=== PATIENT | male | born 1965 | race African-American/Black ===

== ENCOUNTER 2017-02-14 18:54 | Emergency (ER) | payer MEDICARE, MEDICAID ==
[~2017-02-14] VITALS: Ht 177.8 cm; Wt 113.0 kg
[~2017-02-14 18:54] MED LIST: ACYC-1 PO; ALBU1AER INH; ATOR40TA49 PO; CITA10TA4 PO; EMTR1TAB2 PO; MULTTAB5 PO
[2017-02-14 18:56] VITALS: BP 152/84; PULSE 105; RESP 16; TEMP 99.2; O2SAT 96
--- NOTE | 2017-02-14 20:15 | PD ---
HPI Chief Complaint: Cold / Flu Symptoms Time Seen by Provider: 20:08 Travel History International Travel<30 days: No Contact w/Intl Traveler<30days: No Traveled to known affect area: No History of Present Illness HPI 51-year-old male presents for evaluation of cough and congestion and sinus pressure. Symptoms started 3 days ago. The cough is productive with green sputum production. He has been using ipci-mje-ughtqci medications but symptoms persisted which prompted evaluation. No fevers or chills, rash or recent travel , nausea or vomiting. No sick contacts. No other complaints. PFSH Past Medical History Hx Anticoagulant Therapy: No Arthritis: No Asthma: No Autoimmune Disease: Yes (PATIENT HIV POSITIVE SINCE 1995) Blood Disorders: Yes (HIV +, LAST T CELL 600-700 03/2013) Anxiety: No Depression: Yes Heart Rhythm Problems: No Cancer: No Cardiac Catheterization: No Cardiovascular Problems: No High Cholesterol: Yes Chemotherapy: No Chest Pain: Yes Congestive Heart Failure: No COPD: No Cerebrovascular Accident: No Diabetes: No Diminished Hearing: No Endocrine: No Gastrointestinal Disorders: No GERD: No Glaucoma: No Genitourinary: No Headaches: Yes Hepatitis: Yes (B) Hiatal Hernia: No Hypertension: No Immune Disorder: Yes (HIV+ SINCE 1995) Kidney Stones: No Musculoskeletal: No Neurologic: No Psychiatric: Yes (DEPRESSION ) Reproductive: No Respiratory: No Migraines: Yes Myocardial Infarction: No Radiation Therapy: No Renal Failure: No Seizures: No Sleep Apnea: Yes Thyroid Disease: No Ulcer: No PNEUMOCCOCAL Vaccine (Year): 4 YRS AGO Past Surgical History Abdominal Surgery: Yes (APPENDIX) AICD: No Appendectomy: Yes Arteriovenous Shunt: No Body Medical Devices: PATIENT HIV POSITIVE SINCE 1995, HEP B 2005 Cardiac Surgery: No Coronary Artery Bypass Graft: No Ear Surgery: No Endocrine Surgery: No Eye Surgery: No Genitourinary Surgery: No Gynecologic Surgery: No Insulin Pump: No Joint Replacement: No Oral Surgery: No Pacemaker: No Thoracic Surgery: No Other Surgery: Yes (SURG ON LEFT SIDE OF HEAD; TUMOUR REMOVED) Social History Alcohol Use: Yes (drank yesterday) Tobacco Use: Yes (1 PPD) Substance Use: No (Quit Sep 2015) Allergies-Medications (Allergen,Severity, Reaction): Coded Allergies: Codeine (Verified Allergy, Intermediate, HIVES, RASH AND ITCHING, 02/14/17) Reported Meds & Prescriptions Reported Meds & Active Scripts Active Proair Hfa (Albuterol Sulfate) 8.5 Gm Aero 2 Puff INH Q4H PRN * SHAKE WELL BEFORE USE * Reported Acyclovir 800 Mg Tab 800 Mg PO DAILY Lipitor (Atorvastatin Calcium) 40 Mg Tab 40 Mg PO HS Odefsey (Bwhtjfnfgmybs-Pgdzeideccn-Xqsphjuts Alafenam) 200-200-25 Mg Tab 1 Tab PO DAILY Citalopram Hydrobromide 10 Mg Tab 10 Mg PO DAILY Multilex-T&M (Multiple Vitamins W/ Minerals) Tab 30 Mg PO DAILY Review of Systems Except as stated in HPI: all other systems reviewed are Neg Physical Exam Narrative GENERAL: Well-developed well-nourished male in no acute distress SKIN: Warm and dry. HEAD: Atraumatic. Normocephalic. EYES: Pupils equal and round. No scleral icterus. No injection or drainage. ENT: No nasal bleeding or discharge. Mucous membranes pink and moist. NECK: Trachea midline. No JVD. CARDIOVASCULAR: Regular rate and rhythm. No murmur appreciated. RESPIRATORY: No accessory muscle use. Clear to auscultation. Breath sounds equal bilaterally. GASTROINTESTINAL: Abdomen soft, non-tender, nondistended. Hepatic and splenic margins not palpable. Data Data Last Documented VS Vital Signs Date Time Temp Pulse Resp B/P Pulse Ox O2 Delivery O2 Flow Rate FiO2 02/14/17 18:56 99.2 105 16 152/84 96 Room Air Orders Chest, Pa & Lat (02/14/17 ) Influenzae A/B Antigen (02/14/17 20:10) MDM Medical Decision Making Medical Screen Exam Complete: Yes Emergency Medical Condition: Yes Medical Record Reviewed: Yes Differential Diagnosis Sinusitis, bronchitis, pneumonia, influenza Narrative Course 51-year-old male with cough and cold symptoms for the past few days. Chest x- ray is negative for pneumonia. Influenza antigen is negative. He does have evidence of sinusitis. He will be discharged on Augmentin. Diagnosis Primary Impression: Sinusitis Qualified Code: J01.90 - Acute sinusitis, recurrence not specified, unspecified location Additional Instructions: Medication as prescribed. Stay well hydrated well-nourished. Use over-the- counter nasal decongestants and cough suppressants for symptom relief. Return for any emergent medical conditions. Med/Other Pt SpecificInfo: Prescription(s) given Scripts Amoxicillin-Clavulanate (Augmentin)875-125 mg [id number] Mg PO BID 10 Days Ref 0 not for use in CrCl <30 ml/min. Prov:Terrance Crews MD 02/14/17 Disposition: 01 DISCHARGE HOME Condition: Stable Santos Cabrera Feb 14, 2017 20:14
[2017-02-14] MEDS ORDERED: EMTR1TAB2 PO (20:32)
[2017-02-14] MEDS ORDERED: ACYC800T PO (20:32)
[2017-02-14] MEDS ORDERED: LIPI40TA PO (20:32)
--- NOTE | 2017-02-14 20:48 | RADRPT ---
EXAM DATE/TIME: 02/14/2017 20:25 [facility] COMPARISON: CHEST PA & LAT, May 16, 2016, 20:38. [facility] INDICATIONS : Cough and congestion for the past few days. MEDICAL HISTORY : HIV. Hepatitis B. SURGICAL HISTORY : Appendectomy. ENCOUNTER: Initial ACUITY: 3 days PAIN SCORE: 3/10 LOCATION: Bilateral chest FINDINGS: PA and lateral views of the chest demonstrate the lungs to be symmetrically aerated without evidence of mass, infiltrate or effusion. The cardiomediastinal contours are unremarkable. Osseous structure s are intact. CONCLUSION: No acute disease. No significant change has occurred. Peter Robbins MD on February 14, 2017 at 20:46 Board Certified Radiologist. This report was verified electronically.
[2017-02-14] MEDS ORDERED: AUGM875T PO (21:37)
== END 2017-02-14 22:07 | disposition home or self-care (01) ==
LOC: NEPK 18:54
DX: J01.90 Acute sinusitis, unspecified (principal); B20 Human immunodeficiency virus [HIV] disease; E78.00 Pure hypercholesterolemia, unspecified; F32.9 Major depressive disorder, single episode, unspecified; B19.10 Unspecified viral hepatitis B without hepatic coma; F17.210 Nicotine dependence, cigarettes, uncomplicated
CPT/HCPCS: 71020; 87804; 99283

== ENCOUNTER 2017-04-11 19:35 | Emergency (ER) | payer MEDICARE, MEDICAID ==
[~2017-04-11] VITALS: Ht 177.8 cm; Wt 117.0 kg
[~2017-04-11 19:35] MED LIST changes: -ACYC-1 PO; +ACYC800T PO; -ALBU1AER INH; -ATOR40TA49 PO; +AUGM875T PO; +LIPI40TA PO
[2017-04-11 19:36] VITALS: BP 140/83; PULSE 88; RESP 16; TEMP 99; O2SAT 95
--- NOTE | 2017-04-11 21:35 | PD ---
HPI Chief Complaint: Abdominal Pain Time Seen by Provider: 21:28 Travel History International Travel<30 days: No Contact w/Intl Traveler<30days: No Traveled to known affect area: No History of Present Illness HPI 52-year-old male with a history of hepatitis B, HIV, hyperlipidemia, depression presents to the emergency department for evaluation of abdominal distention. The patient states that his abdomen has felt swollen today. States that he has had this feeling in the past as well. States that he has constipation, he has small hard stools. States that he used milk of magnesia and an enema today and has had multiple loose watery stools since then and states that this has improved his symptoms but not completely resolved his symptoms. He states he is concerned about his liver because of his hepatitis B and was concerned he had liver failure. He denies any nausea, vomiting, diarrhea, chest pain, shortness of breath, swelling of the extremities. He states that he has told his PCP Dr. Vivas about these symptoms previously and was told that this is a side effect of the medication that he takes for his HIV. No other complaints. PFSH Past Medical History Hx Anticoagulant Therapy: No Arthritis: No Asthma: No Autoimmune Disease: Yes (PATIENT HIV POSITIVE SINCE 1995) Blood Disorders: Yes (HIV +) Anxiety: No Depression: Yes Heart Rhythm Problems: No Cancer: No Cardiac Catheterization: No Cardiovascular Problems: No High Cholesterol: Yes Chemotherapy: No Chest Pain: Yes Congestive Heart Failure: No COPD: No Cerebrovascular Accident: No Diabetes: Yes Patient Takes Glucophage: Yes (metformin ) Diminished Hearing: No Endocrine: No Gastrointestinal Disorders: No GERD: No Glaucoma: No Genitourinary: No Headaches: Yes Hepatitis: Yes (B) Hiatal Hernia: No Hypertension: No Immune Disorder: Yes (HIV+ SINCE 1995) Kidney Stones: No Musculoskeletal: No Neurologic: No Psychiatric: Yes (DEPRESSION ) Reproductive: No Respiratory: No Migraines: Yes Myocardial Infarction: No Radiation Therapy: No Renal Failure: No Seizures: No Sleep Apnea: Yes Thyroid Disease: No Ulcer: No PNEUMOCCOCAL Vaccine (Year): 4 YRS AGO Past Surgical History Abdominal Surgery: Yes (APPENDIX) AICD: No Appendectomy: Yes Arteriovenous Shunt: No Body Medical Devices: PATIENT HIV POSITIVE SINCE 1995, HEP B 2005 Cardiac Surgery: No Coronary Artery Bypass Graft: No Ear Surgery: No Endocrine Surgery: No Eye Surgery: No Genitourinary Surgery: No Gynecologic Surgery: No Insulin Pump: No Joint Replacement: No Oral Surgery: No Pacemaker: No Thoracic Surgery: No Other Surgery: Yes (SURG ON LEFT SIDE OF HEAD; TUMOUR REMOVED) Family History Family Myocardial Infarction: Yes (aunt, grandmother) Social History Alcohol Use: No (quit 8 months ago) Tobacco Use: Yes (1 PPD) Substance Use: No (Quit Sep 2015) Allergies-Medications (Allergen,Severity, Reaction): Coded Allergies: Codeine (Verified Allergy, Intermediate, HIVES, RASH AND ITCHING, 02/14/17) Reported Meds & Prescriptions Reported Meds & Active Scripts Active Augmentin (Amoxicillin-Clavulanate) 875-125 mg Tab 875 Mg PO BID 10 Days not for use in CrCl <30 ml/min. Reported Acyclovir 800 Mg Tab 800 Mg PO DAILY Lipitor (Atorvastatin Calcium) 40 Mg Tab 40 Mg PO HS Odefsey (Lkdgvwiaahpvg-Rgaujqxgewh-Xyabemqqg Alafenam) 200-200-25 Mg Tab 1 Tab PO DAILY Citalopram Hydrobromide 10 Mg Tab 10 Mg PO DAILY Multilex-T&M (Multiple Vitamins W/ Minerals) Tab 30 Mg PO DAILY Review of Systems Except as stated in HPI: all other systems reviewed are Neg Physical Exam Narrative GENERAL: Well-nourished and well-developed pleasant male patient in no acute distress who is nontoxic appearing. SKIN: Warm and dry. HEAD: Normocephalic and atraumatic. EYES: No injection, drainage, or hyphema noted. PERRLA. EOMI. ENT: No nasal drainage noted. Oropharynx is clear. NECK: Supple and the trachea is midline. CARDIOVASCULAR: Regular rate and rhythm. RESPIRATORY: Breath sounds are equal bilaterally with no accessory muscle use, wheezing, rhonchi, or crackles. GASTROINTESTINAL: Abdomen is slightly distended however soft and nontender. No rebound tenderness or guarding. MUSCULOSKELETAL: No obvious deformities, swelling, cyanosis, or ecchymosis is present throughout the upper and lower extremities. Patient has full range of motion without any signs of neurovascular compromise. NEUROLOGICAL: Awake, alert, and oriented. Normal speech and gait. Cranial nerves are grossly intact. Data Data Last Documented VS Vital Signs Date Time Temp Pulse Resp B/P Pulse Ox O2 Delivery O2 Flow Rate FiO2 04/11/17 19:36 99.0 88 16 140/83 95 Room Air Orders Complete Blood Count With Diff (04/11/17 21:26) Comprehensive Metabolic Panel (04/11/17 21:26) Labs Laboratory Tests Test 04/11/17 21:40 White Blood Count 6.6 TH/MM3 Red Blood Count 4.77 MIL/MM3 Hemoglobin 15.4 GM/DL Hematocrit 44.3 % Mean Corpuscular Volume 92.9 FL Mean Corpuscular Hemoglobin 32.2 PG Mean Corpuscular Hemoglobin 34.6 % Concent Red Cell Distribution Width 13.9 % Platelet Count 202 TH/MM3 Mean Platelet Volume 7.7 FL Neutrophils (%) (Auto) 46.0 % Lymphocytes (%) (Auto) 41.8 % Monocytes (%) (Auto) 10.5 % Eosinophils (%) (Auto) 1.4 % Basophils (%) (Auto) 0.3 % Neutrophils # (Auto) 3.0 TH/MM3 Lymphocytes # (Auto) 2.8 TH/MM3 Monocytes # (Auto) 0.7 TH/MM3 Eosinophils # (Auto) 0.1 TH/MM3 Basophils # (Auto) 0.0 TH/MM3 CBC Comment DIFF FINAL Differential Comment Sodium Level 142 MEQ/L Potassium Level 3.7 MEQ/L Chloride Level 107 MEQ/L Carbon Dioxide Level 26.2 MEQ/L Anion Gap 9 MEQ/L Blood Urea Nitrogen 14 MG/DL Creatinine 1.47 MG/DL Estimat Glomerular Filtration 61 ML/MIN Rate Random Glucose 107 MG/DL Calcium Level 8.8 MG/DL Total Bilirubin 0.3 MG/DL Aspartate Amino Transf 31 U/L (AST/SGOT) Alanine Aminotransferase 64 U/L (ALT/SGPT) Alkaline Phosphatase 130 U/L Total Protein 7.4 GM/DL Albumin 3.7 GM/DL [facility] Medical Decision Making Medical Screen Exam Complete: Yes Emergency Medical Condition: Yes Differential Diagnosis Constipation versus abdominal distention versus indigestion versus GERD versus ascites Narrative Course 52-year-old male with a history of HIV and hepatitis B presents to the emergency department for evaluation of abdominal distention. Patient is afebrile, vital signs are stable. Abdominal examination is benign therefore no emergent imaging is necessary. Patient states he's had this before. He is concerned it caused by his liver. I suspect is more likely caused by either indigestion or constipation. I reviewed the EMR which shows he was seen here less than a year ago for the same complaint, labs and CT of the abdomen were unremarkable. We'll do lab work and if this is unremarkable patient will be discharged to home. Advised follow-up with a employment program representative. CBC is unremarkable. CMP shows renal insufficiency consistent with previous lab values. Alkaline phosphatase is elevated also consistent with previous lab values. No acute abnormalities. Discussed all results with the patient. Advised outpatient follow-up with a employment program representative. I discussed the case with my attending physician Dr. Orta who is aware of the patients history, physical examination findings, and treatment plan. Diagnosis Primary Impression: Abdominal distension Referrals: [employer] Patient Instructions: General Instructions Additional Instructions: Follow-up with your Primary Care Physician or a employment program representative. Return to the ED for any acute worsening of symptoms. Med/Other Pt SpecificInfo: No Change to Meds Disposition: 01 DISCHARGE HOME Condition: Stable Blanka Bonner Apr 11, 2017 21:35
[2017-04-11 22:20] LABS: BASOPHIL % 0.3 % (0.0-2.0); EOSINOPHIL # 0.1 TH/MM3 (0-0.4); EOSINOPHIL % 1.4 % (0.0-4.0); HEMATOCRIT 44.3 % (39.0-51.0); HEMO FLAGS DIFF FINAL; LYMPH % 41.8 % (9.0-44.0); LYMPHOCYTE # 2.8 TH/MM3 (1.0-4.8); MEAN CELL VOLUME 92.9 FL (80.0-100.0); MEAN CORPUSCULAR HEMOGLOBIN 32.2 PG (27.0-34.0); MEAN CORPUSCULAR HGB CONC 34.6 % (32.0-36.0); MONO % 10.5 % (0.0-8.0); PLATELET COUNT 202 TH/MM3 (150-450); RED BLOOD COUNT 4.77 MIL/MM3 (4.50-5.90); RED CELL DISTRIBUTION WIDTH 13.9 % (11.6-17.2); WHITE BLOOD COUNT 6.6 TH/MM3 (4.0-11.0)
[2017-04-11 22:42] LABS: ANION GAP 9 MEQ/L (5-15); BICARBONATE 26.2 MEQ/L (21.0-32.0); BLOOD UREA NITROGEN 14 MG/DL (7-18); CHLORIDE 107 MEQ/L (98-107); GLOMERULAR FILTRATION RATE 61 ML/MIN (>89); POTASSIUM 3.7 MEQ/L (3.5-5.1); SODIUM (NA) 142 MEQ/L (136-145)
[2017-04-11 22:44] LABS: ALT (GPT) 64 U/L (12-78)
[2017-04-11 22:52] LABS: ALKALINE PHOSPHATASE 130 U/L (45-117); AST (GOT) 31 U/L (15-37); TOTAL BILIRUBIN ADULT 0.3 MG/DL (0.2-1.0)
== END 2017-04-11 23:36 | disposition home or self-care (01) ==
LOC: NEPE 19:35
DX: R14.0 Abdominal distension (gaseous) (principal); E78.00 Pure hypercholesterolemia, unspecified; E11.9 Type 2 diabetes mellitus without complications; G47.30 Sleep apnea, unspecified; B19.10 Unspecified viral hepatitis B without hepatic coma; Z21 Asymptomatic human immunodeficiency virus [HIV] infection status
CPT/HCPCS: 80053; 85025; 99283

== ENCOUNTER 2017-05-25 18:09 | Emergency (ER) | payer MEDICARE, MEDICAID ==
[~2017-05-25] VITALS: Ht 177.8 cm; Wt 117.0 kg
[~2017-05-25 18:09] MED LIST changes: -AUGM875T PO; -CITA10TA4 PO; -MULTTAB5 PO
[2017-05-25 18:12] VITALS: BP 126/75; PULSE 86; RESP 15; TEMP 98.2; O2SAT 98
--- NOTE | 2017-05-25 18:23 | PD ---
Physical Exam Date Seen by Provider: May 25, 2017 Time Seen by Provider: 18:21 Narrative 52 yr old male here with c/o constant right sided chest pain. He says it feels like gas. Denies any nausea, vomiting, diaphoresis of sob. He tells me it is likely related to tacos he ate last night and thinks it is gas. He admits to having HIV, Hep B. He tells me he is not able to stay, but hoping everything is ok. He is awaiting bed placement. Data Data Last Documented VS Vital Signs Date Time Temp Pulse Resp B/P Pulse Ox O2 Delivery O2 Flow Rate FiO2 05/25/17 18:12 98.2 86 15 126/75 98 MDM Medical Record Reviewed: Yes Supervised Visit with REMEDIOS: No Condition: Stable Samara Bridges May 25, 2017 18:23
[2017-05-25] MEDS ORDERED: SODIUM CHLOR 0.9% 1000 ML INJ 1,000 ML IV SCH (20:05)
[2017-05-25] MEDS ORDERED: PANTOPRAZOLE SODIUM 40 MG VIAL IVP ONE (20:15)
[2017-05-25] MEDS ORDERED: FAMOTIDINE 20 MG/2 ML VIAL IV PUSH ONE (20:15)
[2017-05-25] MEDS ORDERED: DICYCLOMINE HCL 10 MG CAP PO ONE (20:15)
[2017-05-25 20:41] VITALS: O2SAT 97
[2017-05-25 20:42] VITALS: BP 117/72; PULSE 71; RESP 20; O2SAT 97
--- NOTE | 2017-05-25 20:43 | RADRPT ---
EXAM DATE/TIME: 05/25/2017 20:04 [facility] COMPARISON: CHEST PA & LAT, February 14, 2017, 20:25. INDICATIONS : Chest pain. MEDICAL HISTORY : HIV. Hepatitis B. SURGICAL HISTORY : Appendectomy. ENCOUNTER: Initial ACUITY: 1 day PAIN SCORE: 6/10 LOCATION: Bilateral chest FINDINGS: Cardiomegaly. Clear lungs. Osseous structures are intact. CONCLUSION: No acute disease. Gilbert Brown MD on May 25, 2017 at 20:41 Board Certified Radiologist. This report was verified electronically.
--- NOTE | 2017-05-25 20:56 | PD ---
HPI Chief Complaint: Chest Pain Time Seen by Provider: 20:51 Travel History International Travel<30 days: No Contact w/Intl Traveler<30days: No Traveled to known affect area: No History of Present Illness HPI 52-year-old male that presents to the ED for evaluation of right-sided chest pain. Per patient she's had this since this morning. Per patient he releases gas and he feels very similar to previous episodes which were diagnosed as the same. Per patient he does have a history of HIV and hepatitis B. Per patient she's been treated for his HIV and his viral load is undetectable and his CD4 count is in the 800s. He denies any other complaint. Per patient he does having nausea or vomiting. Per patient the pain stays mainly on the right side of the chest. He denies any left-sided chest pain. No shortness of breath. No cough. No runny nose. No abdominal pain. No trouble eating or drinking. Per patient he feels like there is a gas but doesn't want to come out. Per patient the discomfort is 8 out of 10. He has an allergy to codeine. Has no allergies to medication. No other medical issues at this time. PFSH Past Medical History Hx Anticoagulant Therapy: No Arthritis: No Asthma: No Autoimmune Disease: Yes (PATIENT HIV POSITIVE SINCE 1995) Blood Disorders: Yes (HIV +) Anxiety: No Depression: Yes Heart Rhythm Problems: No Cancer: No Cardiac Catheterization: No Cardiovascular Problems: No High Cholesterol: Yes Chemotherapy: No Chest Pain: Yes Congestive Heart Failure: No COPD: No Cerebrovascular Accident: No Diabetes: Yes Patient Takes Glucophage: Yes Diminished Hearing: No Endocrine: No Gastrointestinal Disorders: No GERD: No Glaucoma: No Genitourinary: No Headaches: Yes Hepatitis: Yes (B) Hiatal Hernia: No Hypertension: No Immune Disorder: Yes (HIV+ SINCE 1995) Kidney Stones: No Musculoskeletal: No Neurologic: No Psychiatric: Yes (DEPRESSION ) Reproductive: No Respiratory: No Migraines: Yes Myocardial Infarction: No Radiation Therapy: No Renal Failure: No Seizures: No Sleep Apnea: Yes Thyroid Disease: No Ulcer: No Tetanus Vaccination: > 5 Years Influenza Vaccination: Yes PNEUMOCCOCAL Vaccine (Year): 4 YRS AGO Past Surgical History Abdominal Surgery: Yes (APPENDIX) AICD: No Appendectomy: Yes Arteriovenous Shunt: No Body Medical Devices: PATIENT HIV POSITIVE SINCE 1995, HEP B 2005 Cardiac Surgery: No Coronary Artery Bypass Graft: No Ear Surgery: No Endocrine Surgery: No Eye Surgery: No Genitourinary Surgery: No Gynecologic Surgery: No Insulin Pump: No Joint Replacement: No Oral Surgery: No Pacemaker: No Thoracic Surgery: No Other Surgery: Yes (SURG ON LEFT SIDE OF HEAD; TUMOUR REMOVED) Family History Family Myocardial Infarction: Yes (aunt, grandmother) Social History Alcohol Use: No (quit 8 months ago) Tobacco Use: Yes (1 PPD) Substance Use: No (Quit Sep 2015) Allergies-Medications (Allergen,Severity, Reaction): Coded Allergies: Codeine (Verified Allergy, Intermediate, HIVES, RASH AND ITCHING, 02/14/17) Reported Meds & Prescriptions Reported Meds & Active Scripts Active Reported Hydrochlorothiazide 12.5 Mg Cap 5 Mg PO DAILY Metformin (Metformin HCl) 500 Mg Tab 500 Mg PO DAILY With a meal Multiple Vitamin 1 Tab 1 Tab PO DAILY Baraclude (Entecavir) 1 Mg Tab 25 Mg PO DAILY Take on an empty stomach. Acyclovir 800 Mg Tab 800 Mg PO DAILY Lipitor (Atorvastatin Calcium) 40 Mg Tab 40 Mg PO HS Odefsey (Qzgekdqagtikf-Ebwfmlxszlu-Jtsltdthk Alafenam) 200-200-25 Mg Tab 1 Tab PO DAILY Review of Systems Except as stated in HPI: all other systems reviewed are Neg Physical Exam Narrative GENERAL: SKIN: Warm and dry. HEAD: Atraumatic. Normocephalic. EYES: Pupils equal and round 4 mm reactive to light and accommodation. No scleral icterus. No injection or drainage. ENT: No nasal bleeding or discharge. Mucous membranes pink and moist. Tongue is midline. No uvula deviation. NECK: Trachea midline. No JVD. CARDIOVASCULAR: Regular rate and rhythm. No murmurs, S3, S4. RESPIRATORY: No accessory muscle use. Clear to auscultation. Breath sounds equal bilaterally. GASTROINTESTINAL: Abdomen soft, non-tender, nondistended. Hepatic and splenic margins not palpable. MUSCULOSKELETAL: Extremities without clubbing, cyanosis, or edema. No obvious deformities. Full range of motion of the upper and lower extremities bilaterally. 2+ pulses bilaterally. Chest pain is not reproducible with touch. NEUROLOGICAL: Awake and alert. No obvious cranial nerve deficits. Motor grossly within normal limits. Five out of 5 muscle strength in the arms and legs. Normal speech. PSYCHIATRIC: Appropriate mood and affect; insight and judgment normal. Data Data Last Documented VS Vital Signs Date Time Temp Pulse Resp B/P Pulse Ox O2 Delivery O2 Flow Rate FiO2 05/25/17 20:42 71 20 117/72 97 Room Air 05/25/17 18:12 98.2 Orders Electrocardiogram (05/25/17 ) Electrocardiogram (05/25/17 20:05) Complete Blood Count With Diff (05/25/17 20:05) Comprehensive Metabolic Panel (05/25/17 20:05) Ckmb (Isoenzyme) Profile (05/25/17 20:05) Troponin I (05/25/17 20:05) Lipase (05/25/17 20:05) Magnesium (Mg) (05/25/17 20:05) Chest, Single Ap (05/25/17 20:05) Iv Access Insert/Monitor (05/25/17 20:05) Ecg Monitoring (05/25/17 20:05) Oximetry (05/25/17 20:05) Pantoprazole Inj (Protonix Inj) (05/25/17 20:15) Sodium Chlor 0.9% 1000 Ml Inj (Ns 1000 M (05/25/17 20:05) Famotidine Inj (Pepcid Inj) (05/25/17 20:15) Dicyclomine (Bentyl) (05/25/17 20:15) CKMB (05/25/17 21:26) CKMB% (05/25/17 21:26) Labs Laboratory Tests Test 05/25/17 05/25/17 21:26 22:06 Sodium Level 139 MEQ/L Potassium Level 4.2 MEQ/L Chloride Level 107 MEQ/L Carbon Dioxide Level 25.9 MEQ/L Anion Gap 6 MEQ/L Blood Urea Nitrogen 17 MG/DL Creatinine 1.61 MG/DL Estimat Glomerular Filtration 55 ML/MIN Rate Random Glucose 97 MG/DL Calcium Level 9.0 MG/DL Magnesium Level 1.9 MG/DL Total Bilirubin 0.3 MG/DL Aspartate Amino Transf 36 U/L (AST/SGOT) Alanine Aminotransferase 60 U/L (ALT/SGPT) Alkaline Phosphatase 115 U/L Total Creatine Kinase 208 U/L Creatine Kinase MB 0.9 NG/ML Troponin I LESS THAN 0.02 NG/ML Total Protein 6.9 GM/DL Albumin 3.4 GM/DL Lipase 124 U/L White Blood Count 7.6 TH/MM3 Red Blood Count 4.62 MIL/MM3 Hemoglobin 14.9 GM/DL Hematocrit 43.6 % Mean Corpuscular Volume 94.4 FL Mean Corpuscular Hemoglobin 32.4 PG Mean Corpuscular Hemoglobin 34.3 % Concent Red Cell Distribution Width 13.9 % Platelet Count 225 TH/MM3 Mean Platelet Volume 7.7 FL Neutrophils (%) (Auto) 46.9 % Lymphocytes (%) (Auto) 39.6 % Monocytes (%) (Auto) 10.9 % Eosinophils (%) (Auto) 1.9 % Basophils (%) (Auto) 0.7 % Neutrophils # (Auto) 3.5 TH/MM3 Lymphocytes # (Auto) 3.0 TH/MM3 Monocytes # (Auto) 0.8 TH/MM3 Eosinophils # (Auto) 0.1 TH/MM3 Basophils # (Auto) 0.1 TH/MM3 CBC Comment DIFF FINAL Differential Comment MDM Medical Decision Making Medical Screen Exam Complete: Yes Emergency Medical Condition: Yes Medical Record Reviewed: Yes Interpretation(s) CBC & BMP Diagram 05/25/17 21:26 05/25/17 22:06 troponin and CKMB negative EKG shows sinus rhythm with no sign of acute ischemia or arrhythmia. Chest x-ray negative for acute disease. LFTs and lipase within normal limits. Differential Diagnosis Chest pain versus a typical chest pain versus abdominal pain versus pancreatitis versus cholelithiasis versus cholecystitis versus pneumonia versus costochondritis Narrative Course 52-year-old male that presents to the ED for evaluation of right-sided chest pain. Patient was properly examined and was found to have signs and symptoms consistent with ACS. I believe that this is a typical chest pain. More likely abdominal. Patient does have a history of hep B. Patient still has a gallbladder. Recommends time labs and imaging to make sure patient does not have any other acute disease. Patient is in agreement with this plan. Patient was given medications IV. Labs and imaging showed sign of acute disease. Patient was reassured. From history and physical this appears to be a typical chest pain. Patient states that he's had this same chest pain before and he was related to gas and do believe that this is benign at this time. Case discussed with my attending Dr Toth who agrees with plan and discharge. Patient was told that if anything worsens she is to come back to the ED. Patient happy with care. Questions were answered that is my ability. Patient will be given a prescription for diclofenac sodium for the pain. Told to follow up with PCP. See ED if worsening symptoms. Diagnosis Primary Impression: Atypical chest pain Patient Instructions: General Instructions Additional Instructions: Take medication as prescribed. Follow with PCP. See ED worsening symptoms. Med/Other Pt SpecificInfo: Prescription(s) given Disposition: 01 DISCHARGE HOME Condition: Stable Charlie Linares May 25, 2017 20:56
[2017-05-25] MEDS ORDERED: MULTTAB67 PO (21:42)
[2017-05-25] MEDS ORDERED: HYDR12.57 PO (21:42)
[2017-05-25] MEDS ORDERED: BARA1TAB PO (21:42)
[2017-05-25] MEDS ORDERED: METF500T PO (21:42)
[2017-05-25 22:11] LABS: ALT (GPT) 60 U/L (12-78)
[2017-05-25 22:26] LABS: ALKALINE PHOSPHATASE 115 U/L (45-117); ANION GAP 6 MEQ/L (5-15); AST (GOT) 36 U/L (15-37); BICARBONATE 25.9 MEQ/L (21.0-32.0); BLOOD UREA NITROGEN 17 MG/DL (7-18); CHLORIDE 107 MEQ/L (98-107); CREATINE KINASE 208 U/L (39-308); GLOMERULAR FILTRATION RATE 55 ML/MIN (>89); MAGNESIUM 1.9 MG/DL (1.5-2.5); POTASSIUM 4.2 MEQ/L (3.5-5.1); SODIUM (NA) 139 MEQ/L (136-145); TOTAL BILIRUBIN ADULT 0.3 MG/DL (0.2-1.0)
[2017-05-25 22:32] LABS: AUTOMATED NEUTROPHIL # 3.5 TH/MM3 (1.8-7.7); BASOPHIL # 0.1 TH/MM3 (0-0.2); BASOPHIL % 0.7 % (0.0-2.0); EOSINOPHIL # 0.1 TH/MM3 (0-0.4); EOSINOPHIL % 1.9 % (0.0-4.0); HEMATOCRIT 43.6 % (39.0-51.0); HEMO FLAGS DIFF FINAL; LYMPH % 39.6 % (9.0-44.0); MEAN CELL VOLUME 94.4 FL (80.0-100.0); MEAN CORPUSCULAR HEMOGLOBIN 32.4 PG (27.0-34.0); MEAN CORPUSCULAR HGB CONC 34.3 % (32.0-36.0); MONO % 10.9 % (0.0-8.0); NEUT % 46.9 % (16.0-70.0); PLATELET COUNT 225 TH/MM3 (150-450); RED BLOOD COUNT 4.62 MIL/MM3 (4.50-5.90); RED CELL DISTRIBUTION WIDTH 13.9 % (11.6-17.2); WHITE BLOOD COUNT 7.6 TH/MM3 (4.0-11.0)
[2017-05-25 22:39] LABS: CKMB 0.9 NG/ML (0.5-3.6)
[2017-05-25] MEDS ORDERED: DICL75TA PO (22:50)
--- NOTE | 2017-05-26 18:51 | EKG ---
Date Performed: 05/25/2017 Time Performed: 18:34:43 PTAGE: 52 years EKG: Sinus rhythm NONSPECIFIC T-WAVE ABNORMALITY BORDERLINE ECG PREVIOUS TRACING : 08/06/2015 19.48 Compared to the previous tracing, non-specific ST/T waves a re new DOCTOR: Stalin Ashley Interpretating Date/Time 05/26/2017 18:51:06
== END 2017-05-25 23:13 | disposition home or self-care (01) ==
LOC: NEPC 18:09
DX: R07.89 Other chest pain (principal); R94.31 Abnormal electrocardiogram [ECG] [EKG]
CPT/HCPCS: 71010; 80053; 82550; 82552; 83690; 83735; 84484; 85025; 93005; 96361; 96374; 96375; 99285; C9113; J7030

== ENCOUNTER 2017-10-14 17:14 | Emergency (ER) | payer MEDICARE, MEDICAID ==
[~2017-10-14] VITALS: Ht 177.8 cm; Wt 116.8 kg
[~2017-10-14 17:14] MED LIST changes: +BARA1TAB PO; +DICL75TA PO; +HYDR12.57 PO; +METF500T PO; +MULTTAB67 PO
[2017-10-14 17:15] VITALS: BP 132/68; PULSE 97; RESP 20; TEMP 98.8; O2SAT 96
[2017-10-14 19:13] LABS: AUTOMATED NEUTROPHIL # 2.6 TH/MM3 (1.8-7.7); BASOPHIL % 0.4 % (0.0-2.0); EOSINOPHIL # 0.1 TH/MM3 (0-0.4); EOSINOPHIL % 1.7 % (0.0-4.0); HEMATOCRIT 44.8 % (39.0-51.0); HEMO FLAGS DIFF FINAL; LYMPH % 44.2 % (9.0-44.0); LYMPHOCYTE # 2.7 TH/MM3 (1.0-4.8); MEAN CELL VOLUME 95.2 FL (80.0-100.0); MEAN CORPUSCULAR HGB CONC 34.7 % (32.0-36.0); MONO % 10.9 % (0.0-8.0); NEUT % 42.8 % (16.0-70.0); PLATELET COUNT 180 TH/MM3 (150-450); RED CELL DISTRIBUTION WIDTH 13.6 % (11.6-17.2); WHITE BLOOD COUNT 6.1 TH/MM3 (4.0-11.0)
[2017-10-14 19:30] LABS: BICARBONATE 25.8 MEQ/L (21.0-32.0); POTASSIUM 3.6 MEQ/L (3.5-5.1)
[2017-10-14] MEDS ORDERED: SODIUM CHLOR 0.9% 1000 ML INJ 1,000 ML IV ONE (20:11)
--- NOTE | 2017-10-14 20:14 | PD ---
HPI Chief Complaint: Flank/Kidney Pain Time Seen by Provider: 20:00 Travel History International Travel<30 days: No Contact w/Intl Traveler<30days: No Traveled to known affect area: No History of Present Illness HPI 52-year-old male with history of HIV presents for evaluation of right flank pain. Symptoms started 2 days ago. The pain is an aching pain which is constant but worse with movement. He denies any injuries. He denies any radicular symptoms, bowel or bladder incontinence, saddle anesthesia, abdominal pain, nausea or vomiting, fevers or chills, dysuria, hematuria. No history of renal stones. He has not tried using any bbgp-kes-csnpvmv medication for symptom control. No other complaints. PFSH Past Medical History Hx Anticoagulant Therapy: No Arthritis: No Asthma: No Autoimmune Disease: Yes (PATIENT HIV POSITIVE SINCE 1995) Blood Disorders: Yes (HIV +) Anxiety: No Depression: Yes Heart Rhythm Problems: No Cancer: No Cardiac Catheterization: No Cardiovascular Problems: No High Cholesterol: Yes Chemotherapy: No Chest Pain: Yes Congestive Heart Failure: No COPD: No Cerebrovascular Accident: No Diabetes: Yes Diminished Hearing: No Endocrine: No Gastrointestinal Disorders: No GERD: No Glaucoma: No Genitourinary: No Headaches: Yes Hepatitis: Yes (B) Hiatal Hernia: No Hypertension: No Immune Disorder: Yes (HIV+ SINCE 1995) Kidney Stones: No Musculoskeletal: No Neurologic: No Psychiatric: Yes (DEPRESSION ) Reproductive: No Respiratory: No Migraines: Yes Myocardial Infarction: No Radiation Therapy: No Renal Failure: No Seizures: No Sleep Apnea: Yes Thyroid Disease: No Ulcer: No PNEUMOCCOCAL Vaccine (Year): 4 YRS AGO Past Surgical History Abdominal Surgery: Yes (APPENDIX) AICD: No Appendectomy: Yes Arteriovenous Shunt: No Body Medical Devices: PATIENT HIV POSITIVE SINCE 1995, HEP B 2005 Cardiac Surgery: No Coronary Artery Bypass Graft: No Ear Surgery: No Endocrine Surgery: No Eye Surgery: No Genitourinary Surgery: No Gynecologic Surgery: No Insulin Pump: No Joint Replacement: No Oral Surgery: No Pacemaker: No Thoracic Surgery: No Other Surgery: Yes (SURG ON LEFT SIDE OF HEAD; TUMOUR REMOVED) Social History Alcohol Use: No (quit 8 months ago) Tobacco Use: Yes (1 PPD) Substance Use: No (Quit Sep 2015) Allergies-Medications (Allergen,Severity, Reaction): Coded Allergies: codeine (Unverified Allergy, Intermediate, HIVES, RASH AND ITCHING, ) Reported Meds & Prescriptions Reported Meds & Active Scripts Active Diclofenac Sodium DR (Diclofenac Sodium) 75 Mg Tabdr 75 Mg PO BID PRN Reported Hydrochlorothiazide 12.5 Mg Cap 5 Mg PO DAILY Metformin (Metformin HCl) 500 Mg Tab 500 Mg PO DAILY With a meal Multiple Vitamin 1 Tab 1 Tab PO DAILY Baraclude (Entecavir) 1 Mg Tab 25 Mg PO DAILY Take on an empty stomach. Acyclovir 800 Mg Tab 800 Mg PO DAILY Lipitor (Atorvastatin Calcium) 40 Mg Tab 40 Mg PO HS Odefsey (Ypxkcwuymchez-Ihywmmcznyy-Rfvxrzuhl Alafenam) 200-200-25 Mg Tab 1 Tab PO DAILY Review of Systems Except as stated in HPI: all other systems reviewed are Neg Physical Exam Narrative GENERAL: Well-developed well-nourished male in no acute distress SKIN: Warm and dry. HEAD: Atraumatic. Normocephalic. EYES: Pupils equal and round. No scleral icterus. No injection or drainage. ENT: No nasal bleeding or discharge. Mucous membranes pink and moist. NECK: Trachea midline. No JVD. CARDIOVASCULAR: Regular rate and rhythm. No murmur appreciated. RESPIRATORY: No accessory muscle use. Clear to auscultation. Breath sounds equal bilaterally. GASTROINTESTINAL: Abdomen soft, non-tender, nondistended. Hepatic and splenic margins not palpable. MUSCULOSKELETAL: No obvious deformities. Some tenderness to palpation of the right flank with mild CVA tenderness. There is no tenderness to palpation along the thoracic or lumbar midline. There is no rash. NEUROLOGICAL: Awake and alert. No obvious cranial nerve deficits. Motor grossly within normal limits. Normal speech. PSYCHIATRIC: Appropriate mood and affect; insight and judgment normal. Data Data Last Documented VS Vital Signs Date Time Temp Pulse Resp B/P (MAP) Pulse Ox O2 Delivery O2 Flow Rate FiO2 10/14/17 20:52 65 20 133/84 (100) 97 Room Air 10/14/17 17:15 98.8 Orders Orders Complete Blood Count With Diff (10/14/17 18:23) Basic Metabolic Panel (Bmp) (10/14/17 18:23) Urinalysis - C+S If Indicated (10/14/17 20:11) Ct Abd/Pel W/O Iv Contrast (10/14/17 20:11) Ketorolac Inj (Toradol Inj) (10/14/17 20:15) Sodium Chlor 0.9% 1000 Ml Inj (Ns 1000 M (10/14/17 20:11) Ed Discharge Order (10/14/17 21:38) Labs Laboratory Tests Test 10/14/17 18:30 10/14/17 18:44 White Blood Count 6.1 TH/MM3 Red Blood Count 4.70 MIL/MM3 Hemoglobin 15.5 GM/DL Hematocrit 44.8 % Mean Corpuscular Volume 95.2 FL Mean Corpuscular Hemoglobin 33.0 PG Mean Corpuscular Hemoglobin Concent 34.7 % Red Cell Distribution Width 13.6 % Platelet Count 180 TH/MM3 Mean Platelet Volume 7.7 FL Neutrophils (%) (Auto) 42.8 % Lymphocytes (%) (Auto) 44.2 % Monocytes (%) (Auto) 10.9 % Eosinophils (%) (Auto) 1.7 % Basophils (%) (Auto) 0.4 % Neutrophils # (Auto) 2.6 TH/MM3 Lymphocytes # (Auto) 2.7 TH/MM3 Monocytes # (Auto) 0.7 TH/MM3 Eosinophils # (Auto) 0.1 TH/MM3 Basophils # (Auto) 0.0 TH/MM3 CBC Comment DIFF FINAL Differential Comment Blood Urea Nitrogen 16 MG/DL Creatinine 1.50 MG/DL Random Glucose 89 MG/DL Calcium Level 8.8 MG/DL Sodium Level 139 MEQ/L Potassium Level 3.6 MEQ/L Chloride Level 106 MEQ/L Carbon Dioxide Level 25.8 MEQ/L Anion Gap 7 MEQ/L Estimat Glomerular Filtration Rate 60 ML/MIN Urine Color YELLOW Urine Turbidity CLEAR Urine pH 6.0 Urine Specific [place] 1.018 Urine Protein NEG mg/dL Urine Glucose (UA) NEG mg/dL Urine Ketones NEG mg/dL Urine Occult Blood NEG Urine Nitrite NEG Urine Bilirubin NEG Urine Urobilinogen LESS THAN 2.0 MG/DL Urine Leukocyte Esterase NEG Urine Squamous Epithelial Cells <1 /hpf Microscopic Urinalysis Comment CULT NOT INDICATED MDM Medical Decision Making Medical Screen Exam Complete: Yes Emergency Medical Condition: Yes Medical Record Reviewed: Yes Differential Diagnosis Muscle strain, renal stone, pyelonephritis, shingles Narrative Course 52-year-old male with history of HIV here with right flank pain for 2 days. His pain is worse with movement. There is no evidence of shingles. Lab work performed is unremarkable. CT of the abdomen and pelvis reveals no obstructive uropathy. His pain appears muscular. Recommended [id number] NSAIDs. He is stable for discharge. Diagnosis Primary Impression: Back pain Additional Instructions: Tylenol or Motrin for pain. Avoid heavy lifting. Follow-up with primary care as needed. Return for any emergent medical conditions. Med/Other Pt SpecificInfo: No Change to Meds Disposition: 01 DISCHARGE HOME Condition: Stable Santos Cabrera Oct 14, 2017 20:13
[2017-10-14] MEDS ORDERED: KETOROLAC TROMETHAMINE 30 MG/ML (IVP) VIAL IV PUSH ONE (20:15)
[2017-10-14 20:52] VITALS: BP 133/84; PULSE 65; RESP 20; O2SAT 97
[2017-10-14 21:02] LABS: BLOOD, URINE NEG (NEG); COMMENT (UR) CULT NOT INDICATED; CULTURE IF INDICATED CULT NOT INDICATED; GLUCOSE,URINE NEG (NEG); KETONE, URINE NEG (NEG); NITRITE,URINE NEG (NEG); SQUAMOUS EPITHELIAL CELL URINE <1 /hpf (0-5); URINE COLOR YELLOW (YELLW/STRAW)
--- NOTE | 2017-10-14 21:11 | RADRPT ---
EXAM DATE/TIME: 10/14/2017 20:35 [facility] COMPARISON: CT ABDOMEN & PELVIS W/O CONTRAST, July 17, 2016, 13:07. INDICATIONS : Right flank pain , evaluate for renal stone ORAL CONTRAST: No oral contrast ingested. RADIATION DOSE: 13.49 CTDIvol (mGy) MEDICAL HISTORY : HIV. Diabetes mellitus type 2. Hepatitis B. SURGICAL HISTORY : Appendectomy. ENCOUNTER: Initial ACUITY: 3 days PAIN SCALE: 9/10 LOCATION: Right flank TECHNIQUE: Volumetric scanning of the abdomen and pelvis was performed. Using automated exposure control and adjustment of the mA and/or kV according to patient size, radiation dose was kept as low as reasonably achievable to obtain optimal diagnostic quality images. DICOM format image data is av ailable electronically for review and comparison. FINDINGS: LOWER LUNGS: The visualized lower lungs are clear. LIVER: Homogeneous density without lesion. There is no dilation of the biliary tree. No calcifi ed gallstones. SPLEEN: Normal size without lesion. PANCREAS: Within normal limits. KIDNEYS: Cortical scarring is noted involving the upper pole of the left kidney. There is no mass , stone, or hydronephrosis. ADRENAL GLANDS: Within normal limits. VASCULAR: There is no aortic aneurysm. BOWEL/MESENTERY: The stomach, small bowel, and colon demonstrate no acute abnormality. There is no free intraperitoneal air or fluid. ABDOMINAL WALL: Within normal limits. RETROPERITONEUM: There is no lymphadenopathy. BLADDER: No wall thickening or mass. REPRODUCTIVE: Within normal limits. INGUINAL: There is no lymphadenopathy or hernia. MUSCULOSKELETAL: Within normal limits for patient age. CONCLUSION: No acute obstructive uropathy. Cortical scarring of the upper pole the left kidney. Andres Shea MD on October 14, 2017 at 21:08 Board Certified Radiologist. This report was verified electronically.
== END 2017-10-14 22:07 | disposition home or self-care (01) ==
LOC: NEPD 17:14
DX: M54.9 Dorsalgia, unspecified (principal); B20 Human immunodeficiency virus [HIV] disease; E78.00 Pure hypercholesterolemia, unspecified; E11.9 Type 2 diabetes mellitus without complications; F17.200 Nicotine dependence, unspecified, uncomplicated; Z79.84 Long term (current) use of oral hypoglycemic drugs
CPT/HCPCS: 74176; 80048; 81001; 85025; 96374; 99285; J1885; J7030

== ENCOUNTER 2018-05-09 05:22 | Observation (INO) ==
[2018-05-09] MEDS ORDERED: Sod Chloride 0.9% Inj 1,000 ML IV.SIG ONE (06:39)
[2018-05-09] MEDS ORDERED: SODIUM CHLORIDE 0.9% IV.SIG PRN (06:39)
--- NOTE | 2018-05-09 07:10 | ED ---
HPI General Chief Complaint: Overdose Stated Complaint: Medical/EVAC Time Seen by Provider: 05/09/18 06:38 History of Present Illness HPI Narrative: 53-year-old male presents to the emergency department by EMS transport for evaluation of agitation. Patient admits to using cocaine prior to arrival to the emergency department. Patient admits to depression. Patient states he was just out of his mind after taking the cocaine and was jumping on people's cars and had to be brought to the emergency room. Patient states he has a history of depression and HIV. Patient states she has been quite depressed since his . Patient states he normally does not use substances. Patient is fearful that he may harm himself although he does not have a specific plan. Patient states he wanted to be Cosme acted he does not know if the paramedics Cosme acted him or not but he does not feel safe and does not feel he would be safe in the community. Patient states that he is uncertain if he would be a risk to harm himself or others. Patient denies any pain. Patient admits to smoking cigarettes. Patient states that he is also treated for dyslipidemia and diabetes but does not have high blood pressure. Patient has not been experiencing any chest pain or shortness of breath also no nausea or vomiting sweats or referred neck jaw back shoulder arm pain. Patient denies any recent febrile illness. Patient rates his pain 0/10 intensity. Related Data Allergies Allergy/AdvReac Type Severity Reaction Status Date / Time codeine Allergy Intermediate HIVES, Verified 05/09/18 05:39 RASH AND ITCHING Review of Systems ROS Unobtainable All other systems reviewed negative except as stated in HPI Constitutional Denies body ache(s), Denies chills, Denies fever(s), Denies headache(s) and Denies night sweats Eyes Denies blurry vision and Denies diplopia ENT Denies abnormal hearing and Denies nasal congestion Cardiovascular Denies chest pain, Denies diaphoresis and Denies dyspnea Respiratory Denies chest congestion and Denies dyspnea Gastrointestinal Denies abdominal pain and Denies nausea Genitourinary Denies penile discharge Musculoskeletal Denies back pain Integumentary/Breasts Denies rash Neurologic Denies vertigo, Denies dizziness and Denies headache(s) Psychiatric Reports anxiety, Reports depression, Reports hopelessness and Reports suicidal ideation Endocrine Denies excessive sweating Hematologic/Lymphatic Denies system reviewed and no additional complaints, except as docu and Denies easy bruising Allergic/Immunologic Denies system reviewed and no additional complaints, except as docu PMFSH Medical History Medical History Diabetes (Acute) Social History Social History Second Hand Smoke Exposure: No Smoking Status: Former smoker Tobacco Type: Cigarettes How Often Do You Have a Drink Containing Alcohol: 2 to 3 times a week Recent Travel in [facility] within the Last 8 Weeks: No Recent Out of Country Travel within the Last 8 Weeks: No Immunization History Tetanus Immunization: Unsure Hx Influenza Vaccine This Season: No Exam Narrative Exam Narrative: GENERAL: Well-developed well-nourished male in no acute distress no respiratory distress SKIN: Focused skin assessment warm/dry. HEAD: Atraumatic. Normocephalic. EYES: Pupils equal and round. No scleral icterus. No injection or drainage. ENT: No nasal bleeding or discharge. Mucous membranes pink and moist. NECK: Trachea midline. No JVD. CARDIOVASCULAR: Regular rate and rhythm. No murmur appreciated. RESPIRATORY: No accessory muscle use. Clear to auscultation. Breath sounds equal bilaterally. GASTROINTESTINAL: Abdomen soft, non-tender, nondistended. Hepatic and splenic margins not palpable. MUSCULOSKELETAL: No obvious deformities. No clubbing. No cyanosis. No edema. NEUROLOGICAL: Awake and alert. No obvious cranial nerve deficits. Motor grossly within normal limits. Normal speech. PSYCHIATRIC: Appropriate mood and affect; insight and judgment normal. Course Reevaluation(s) Reevaluation #1: Patient placed on monitor IV access obtained specimens collected and sent for resulting; patient places a Cosme act by me due to depression and concern of ongoing risk of harming himself or others with recent depression precipitated by loss of his . Patient has previously been on antidepressants were recently discontinued by his infectious disease specialist for his HIV due to issues with his liver. At 7:15 AM patient will be signed over to oncoming physician for follow-up of basic labs medical clearance and disposition Initial Documented Vital Signs Temperature 98.2 F 05/09/18 05:28 Pulse Rate 119 H 05/09/18 05:28 Respiratory Rate 20 05/09/18 05:28 Blood Pressure 134/82 05/09/18 05:28 Pulse Oximetry 97 05/09/18 05:28 Last Documented Vital Signs Temperature 98.2 F 05/09/18 05:28 Pulse Rate 119 H 05/09/18 05:28 Respiratory Rate 20 05/09/18 05:28 Blood Pressure 134/82 05/09/18 05:28 Pulse Oximetry 97 05/09/18 05:28 Sign Out Sign Out Data: Patient Sign Out occurred on 05/09/18 at 07:27. Patient's care was discussed, and care was transferred from Yoli Swenson MD to Christine Cerda MD. Sign Out Comment: follow up pending labs, psych screen and disposition Last updated by Yoli Swenson MD at 05/09/18 07:12 Post-Handoff Eval: Patient c/o sternal chest pain after doing crack all night 2/2 his 's daeth. Pain described as being sternal, nonradiating, started at 2AM today, intermittent, 15 sec duration, new onset, no alleviating factors. + cough, dyspnea with chest pain, no LE edema, no recent travel. Will get ECG, give 325mg po ASA, CXR, labs. Will give 1 NTG 0.4mg. ECG: SR, rate 99, TWI in III Medical Decision Making Lab Data Result diagrams: 05/09/18 06:59 05/09/18 06:59 Lab Results 05/09/18 05/09/18 Range/Units 06:59 06:59 WBC 7.5 (4.0-11.0) th/mm3 RBC 4.81 (4.50-5.90) mil/mm3 Hgb 15.8 (13.0-17.0) gm/dL Hct 46.0 (39.0-51.0) % MCV 95.5 (80.0-100.0) fL MCH 32.9 (27.0-34.0) pg MCHC 34.4 (32.0-36.0) % RDW 13.9 (11.6-17.2) % Plt Count 199 (150-450) th/mm3 MPV 8.2 (7.0-11.0) fL Neut % (Auto) 67.3 (16.0-70.0) % Lymph % (Auto) 21.3 (9.0-44.0) % [place] % (Auto) 10.6 H (0.0-8.0) % Eos % (Auto) 0.5 (0.0-4.0) % Baso % (Auto) 0.3 (0.0-2.0) % Neut # (Auto) 5.0 (1.8-7.7) th/mm3 Lymph # (Auto) 1.6 (1.0-4.8) th/mm3 [place] # (Auto) 0.8 (0.0-0.9) th/mm3 Eos # (Auto) 0.0 (0.0-0.4) th/mm3 Baso # (Auto) 0.0 (0.0-0.2) th/mm3 WBC Differential . Differential Comment Auto diff final Salicylates 2.2 L (2.8-20.0) mg/dL Imaging Data Radiologist's impression: ITS Impressions Chest X-Ray 05/09/18 06:38 CONCLUSION: Negative for acute process. Discharge Plan Physicians Team ED Provider: Christine Cerda Primary Care Provider: Dieter Vargas Status ED Status: With Doctor
[2018-05-09] MEDS ORDERED: Aspirin 325 MG Tablet PO ONE (07:19)
--- NOTE | 2018-05-09 07:19 | XR ---
EXAM DATE: 05/09/2018 7:14 AM EDT AGE/SEX: 53 years / Male INDICATIONS: Midline chest pain post drug use. CLINICAL DATA: This is the patient's initial encounter. Patient reports that signs and symptoms have been present for 1 day and indicates a pain score of 4/10. MEDICAL/SURGICAL HISTORY: None. None. COMPARISON: No prior exams available for comparison. FINDINGS: A single AP view of the chest demonstrates the lungs to be symmetrically aerated without evidence of mass, infiltrate or effusion. The cardiomediastinal contours are unremarkable. Osseous structures a re intact. CONCLUSION: Negative for acute process. Electronically signed by: Magan Farrell MD 05/09/2018 7:17 AM EDT
[2018-05-09 07:22] LABS: Baso % (Auto) 0.3 % (0.0-2.0); Eos % (Auto) 0.5 % (0.0-4.0); Hemoglobin 15.8 gm/dL (13.0-17.0); Lymph # (Auto) 1.6 th/mm3 (1.0-4.8); Lymph % (Auto) 21.3 % (9.0-44.0); Mean Corpuscular HGB Conc 34.4 % (32.0-36.0); Mean Corpuscular Hemoglobin 32.9 pg (27.0-34.0); Mean Corpuscular Volume 95.5 fL (80.0-100.0); Mean Platelet Volume 8.2 fL (7.0-11.0); Mono # (Auto) 0.8 th/mm3 (0.0-0.9); Mono % (Auto) 10.6 % (0.0-8.0); Neut % (Auto) 67.3 % (16.0-70.0); Platelet Count 199 th/mm3 (150-450); Red Blood Count 4.81 mil/mm3 (4.50-5.90); Red Cell Distribution Width 13.9 % (11.6-17.2); White Blood Count 7.5 th/mm3 (4.0-11.0)
[2018-05-09 07:38] LABS: Alkaline Phosphatase 90 U/L (45-117); Total Protein 7.3 g/dL (6.4-8.2)
[2018-05-09 07:52] LABS: Potassium 3.5 meq/L (3.5-5.1); Sodium 141 meq/L (136-145)
[2018-05-09 07:53] LABS: Alanine Aminotransferase 49 U/L (12-78); Albumin 3.8 g/dL (3.4-5.0); Anion Gap 16 meq/L (5-15); Aspartate Aminotransferase 49 U/L (15-37); Blood Urea Nitrogen 18 mg/dL (7-18); Calcium 8.6 mg/dL (8.5-10.1); Carbon Dioxide 19.5 meq/L (21.0-32.0); Chloride 106 meq/L (98-107); Glomerular Filtration Rate 44 mL/min (>89); Glucose,Random 131 mg/dL (74-106)
--- NOTE | 2018-05-09 08:08 | ED ---
HPI General Chief Complaint: Overdose Stated Complaint: Medical/EVAC Time Seen by Provider: 05/09/18 06:38 History of Present Illness HPI Narrative: 53-year-old male presents to the emergency department by EMS for evaluation of accidental cocaine overdose. Patient reports he has been very depressed and recently decided to start using cocaine again. Patient has been very depressed about the of his . Patient has known history of depression and was recently discontinued from his antidepressant medications by his infectious disease specialist due to liver enzyme issues. Patient has HIV and is followed by Dr. Vargas. Patient states that he is very concerned that he may still want to harm himself and thinks he should be Cosme acted. Patient states that he is also concerned that he is a harm for others. Patient denies having a plan. Patient denies any known injury. Patient denies any headache visual disturbance chest pain pleuritic chest pain shortness of breath does note some palpitations denies any nausea vomiting abdominal pain or referred neck jaw back shoulder arm pain. Patient states that he does have history of dyslipidemia diabetes and tobaccoism. Patient denies any known history of cardiac disease. Patient denies family history of premature onset heart disease. Patient states that he has had no recent febrile illness no recent cough congestion wheezing and has had no recent GI symptoms vomiting abdominal pain diarrhea. Patient denies other concerns or complaints. Patient states that he just lost control and was jumping on cars and shouting and acting in a erratic manner after ingesting cocaine. Patient states he does not know what to do and he does not feel safe. Related Data Home Medications Medication Instructions Recorded Confirmed aspirin 81 mg PO DAILY 05/09/18 05/09/18 atorvastatin [Lipitor] mg PO DAILY 05/09/18 wmicysslgs-wcpiemmu-gaqqpm ala 1 tab PO DAILY 05/09/18 05/09/18 [Odefsey] entecavir [Baraclude] mg PO DAILY 05/09/18 hydrochlorothiazide mg PO DAILY 05/09/18 metformin 05/09/18 Allergies Allergy/AdvReac Type Severity Reaction Status Date / Time codeine Allergy Intermediate HIVES, Verified 05/09/18 05:39 RASH AND ITCHING Review of Systems ROS Unobtainable All other systems reviewed negative except as stated in HPI Constitutional Denies body ache(s), Denies chills and Denies fever(s) Eyes Denies blind spots and Denies blurry vision ENT Denies headache(s) and Denies nasal congestion Cardiovascular Denies chest pain and Denies diaphoresis Respiratory Denies chest congestion Gastrointestinal Denies abdominal pain and Denies vomiting Genitourinary Denies flank pain Musculoskeletal Denies back pain Integumentary/Breasts Denies rash Neurologic Denies abnormal hearing, Denies vertigo, Denies dizziness and Denies headache(s) Psychiatric Reports hopelessness and Reports suicidal ideation Endocrine Denies excessive sweating and Denies heat intolerance Hematologic/Lymphatic Denies easy bruising Allergic/Immunologic Denies urticaria PMFSH Medical History Medical History Diabetes (Acute) HIV (human immunodeficiency virus infection) (Acute) Hepatitis (Acute) High cholesterol (Acute) Social History Social History Second Hand Smoke Exposure: No Smoking Status: Former smoker Tobacco Type: Cigarettes How Often Do You Have a Drink Containing Alcohol: 2 to 3 times a week Recent Travel in [facility] within the Last 8 Weeks: No Recent Out of Country Travel within the Last 8 Weeks: No Immunization History Tetanus Immunization: Unsure Hx Influenza Vaccine This Season: No Exam Narrative Exam Narrative: GENERAL: Well-developed well-nourished male no acute distress no respiratory distress appears mildly depressed not tearful GCS 15 able to relate history without difficulty succinctly SKIN: Focused skin assessment warm/dry. HEAD: Atraumatic. Normocephalic. EYES: Pupils equal and round. No scleral icterus. No injection or drainage. ENT: No nasal bleeding or discharge. Mucous membranes pink and moist. NECK: Trachea midline. No JVD. CARDIOVASCULAR: Increased regular rate and rhythm. No murmur appreciated. RESPIRATORY: No accessory muscle use. Clear to auscultation. Breath sounds equal bilaterally. GASTROINTESTINAL: Abdomen soft, non-tender, nondistended. Hepatic and splenic margins not palpable. MUSCULOSKELETAL: No obvious deformities. No clubbing. No cyanosis. No edema. NEUROLOGICAL: Awake and alert. No obvious cranial nerve deficits. Motor grossly within normal limits. Normal speech. PSYCHIATRIC: Appropriate mood and affect; insight and judgment normal. Course Hospital Course: Patient placed on cardiac rn with continuous pulse oximetry IV access obtained specimens collected and sent for resulting patient given 1 L normal saline bolus infusion psych screen ordered Patient concerned about remaining at risk of harm to himself or to others states that he is fearful although he does not have a plan regarding harm to himself or others and is very depressed; patient was placed as a Cosme act by me the undersigned Initial Documented Vital Signs Temperature 98.2 F 05/09/18 05:28 Pulse Rate 119 H 05/09/18 05:28 Respiratory Rate 20 05/09/18 05:28 Blood Pressure 134/82 05/09/18 05:28 Pulse Oximetry 97 05/09/18 05:28 Last Documented Vital Signs Temperature 98.2 F 05/09/18 05:28 Pulse Rate 94 H 05/09/18 09:28 Respiratory Rate 16 05/09/18 09:28 Blood Pressure 126/68 05/09/18 09:28 Pulse Oximetry 100 05/09/18 09:28 Sign Out Sign Out Data: Patient Sign Out occurred on 05/09/18 at 07:27. Patient's care was discussed, and care was transferred from Yoli Swenson MD to Christine Cerda MD. Sign Out Comment: follow up pending labs, psych screen and disposition Last updated by Yoli Swenson MD at 05/09/18 07:12 Post-Handoff Eval: Patient c/o sternal chest pain after doing crack all night 2/2 his 's . Pain described as being sternal, nonradiating, started at 2AM today, intermittent, 15 sec duration, new onset, no alleviating factors. + cough, dyspnea with chest pain, no LE edema, no recent travel. Will get ECG, give 325mg po ASA, CXR, labs. Will give 1 NTG 0.4mg. ECG: SR, rate 99, TWI in III 0921: CP improved with 1 SL NTG. Troponin and BNP negative. CPK and CKMB pending at time of chest pain center obs admission. Creatinine increased to 1.95 from 1.50 in October. AST increased. CXR neg for acute process. Medical Decision Making Lab Data Result diagrams: 05/09/18 06:59 05/09/18 06:59 Lab Results 05/09/18 05/09/18 05/09/18 Range/Units 06:59 06:59 06:59 WBC 7.5 (4.0-11.0) th/mm3 RBC 4.81 (4.50-5.90) mil/mm3 Hgb 15.8 (13.0-17.0) gm/dL Hct 46.0 (39.0-51.0) % MCV 95.5 (80.0-100.0) fL MCH 32.9 (27.0-34.0) pg MCHC 34.4 (32.0-36.0) % RDW 13.9 (11.6-17.2) % Plt Count 199 (150-450) th/mm3 MPV 8.2 (7.0-11.0) fL Neut % (Auto) 67.3 (16.0-70.0) % Lymph % (Auto) 21.3 (9.0-44.0) % [place] % (Auto) 10.6 H (0.0-8.0) % Eos % (Auto) 0.5 (0.0-4.0) % Baso % (Auto) 0.3 (0.0-2.0) % Neut # (Auto) 5.0 (1.8-7.7) th/mm3 Lymph # (Auto) 1.6 (1.0-4.8) th/mm3 [place] # (Auto) 0.8 (0.0-0.9) th/mm3 Eos # (Auto) 0.0 (0.0-0.4) th/mm3 Baso # (Auto) 0.0 (0.0-0.2) th/mm3 WBC Differential . Differential Comment Auto diff final PT (9.8-11.6) sec INR Ratio APTT (24.3-30.1) sec Sodium 141 (136-145) meq/L Potassium 3.5 (3.5-5.1) meq/L Chloride 106 (98-107) meq/L Carbon Dioxide 19.5 L (21.0-32.0) meq/L Anion Gap 16 H (5-15) meq/L BUN 18 (7-18) mg/dL Creatinine 1.95 H (0.60-1.30) mg/dL Estimated GFR 44 L (>89) mL/min Random Glucose 131 H (74-106) mg/dL Calcium 8.6 (8.5-10.1) mg/dL Total Bilirubin 0.4 (0.2-1.0) mg/dL AST 49 H (15-37) U/L ALT 49 (12-78) U/L Alkaline Phosphatase 90 (45-117) U/L Troponin I (0.02-0.05) ng/mL B-Natriuretic Peptide (0-100) pg/mL Total Protein 7.3 (6.4-8.2) g/dL Albumin 3.8 (3.4-5.0) g/dL TSH 1.430 (0.358-3.740) uIU/mL Salicylates 2.2 L (2.8-20.0) mg/dL Acetaminophen Less than 2.0 L (10.0-30.0) mcg/mL Serum Alcohol Less than 3 (0-5) mg/dL 05/09/18 05/09/18 05/09/18 Range/Units 07:30 07:30 07:30 WBC (4.0-11.0) th/mm3 RBC (4.50-5.90) mil/mm3 Hgb (13.0-17.0) gm/dL Hct (39.0-51.0) % MCV (80.0-100.0) fL MCH (27.0-34.0) pg MCHC (32.0-36.0) % RDW (11.6-17.2) % Plt Count (150-450) th/mm3 MPV (7.0-11.0) fL Neut % (Auto) (16.0-70.0) % Lymph % (Auto) (9.0-44.0) % [place] % (Auto) (0.0-8.0) % Eos % (Auto) (0.0-4.0) % Baso % (Auto) (0.0-2.0) % Neut # (Auto) (1.8-7.7) th/mm3 Lymph # (Auto) (1.0-4.8) th/mm3 [place] # (Auto) (0.0-0.9) th/mm3 Eos # (Auto) (0.0-0.4) th/mm3 Baso # (Auto) (0.0-0.2) th/mm3 WBC Differential Differential Comment PT 10.2 (9.8-11.6) sec INR 1.0 Ratio APTT 25.0 (24.3-30.1) sec Sodium (136-145) meq/L Potassium (3.5-5.1) meq/L Chloride (98-107) meq/L Carbon Dioxide (21.0-32.0) meq/L Anion Gap (5-15) meq/L BUN (7-18) mg/dL Creatinine (0.60-1.30) mg/dL Estimated GFR (>89) mL/min Random Glucose (74-106) mg/dL Calcium (8.5-10.1) mg/dL Total Bilirubin (0.2-1.0) mg/dL AST (15-37) U/L ALT (12-78) U/L Alkaline Phosphatase (45-117) U/L Troponin I Less than 0.02 L (0.02-0.05) ng/mL B-Natriuretic Peptide 13 (0-100) pg/mL Total Protein (6.4-8.2) g/dL Albumin (3.4-5.0) g/dL TSH (0.358-3.740) uIU/mL Salicylates (2.8-20.0) mg/dL Acetaminophen (10.0-30.0) mcg/mL Serum Alcohol (0-5) mg/dL Imaging Data Radiologist's impression: ITS Impressions Chest X-Ray 05/09/18 06:38 CONCLUSION: Negative for acute process. Discharge Plan Discharge Disposition Patient Disposition: 30 Still Patient Discharge Condition Condition: Stable Discharge Details Discharge Problem: Chest pain, Cocaine intoxication, Depression (emotion) Physicians Team ED Provider: Christine Cerda Primary Care Provider: Dieter Vargas Rxs /Orders / Referrals /Forms Prescriptions: No Action cpwxlbbfet-kbhywotc-jdzdft ala [Odefsey] 200-25-25 mg Tablet 1 tab PO DAILY RF: 0 atorvastatin [Lipitor] 20 mg Tablet PO DAILY RF: 0 metformin 1,000 mg Tablet RF: 0 aspirin 81 mg Tablet,Chewable 81 mg PO DAILY RF: 0 entecavir [Baraclude] 1 mg Tablet PO DAILY RF: 0 hydrochlorothiazide 12.5 mg Tablet PO DAILY RF: 0 Status ED Status: With Doctor
[2018-05-09 08:23] LABS: Prothrombin Time 10.2 sec (9.8-11.6)
[2018-05-09 10:24] LABS: Cannabinoid Screen,Urine Pos (Neg); Opiate Screen,Urine Neg (Neg)
[2018-05-09 10:30] LABS: Amphetamine Screen,Urine Neg (Neg); Barbiturate Screen,Urine Neg (Neg); Cocaine Screen,Urine Pos (Neg)
[2018-05-09 13:11] LABS: CKMB Percent 0.4 % (0.0-4.0); Creatine Kinase MB 5.6 ng/mL (0.5-3.6)
[2018-05-09 14:34] LABS: Creatine Kinase 1185 U/L (39-308)
--- NOTE | 2018-05-09 14:42 | P.HPHBS ---
Reason for Admit/HPI Legal Status on Arrival: Voluntary History of Present Illness: Lety is a 53 years old male with known history of HIV- last CD4 count undetectable, DM type 2 on Metformin, Hepatitis B , smoker and admits to crack cocaine use = and has been clean for 10 months now but admits to relapse last Thursday- - smoke crack cociane through a pipe about $ 300 worth and was sharing this with other individuals. Patient admits to being depressed- hsi recently pass away 04/15 at home in his arms- she was daignosed iwth CAD and HIV. Admits to suicidial ideations, "don't know what to do", running along IS into the streets and brought in by police. At ER complains of chest pain - reproducible with touch, no nausea or vomting, no history of HTN but as mentined + hsitory of DM. Ba acted here in the ER. Admitted for further evaluation. Med psychiatry floor has no telemetry- - so we will admit patient ot rule out with 3 troponins and possible transfer to psychaitry unit. Review of Systems Psychiatric: emotional problems, depression PMFSH - History History Provided By: Patient - Medical History Medical History: Medical History (Last Updated 05/09/18 @ 09:20 by Sheila Jean-Baptiste) Diabetes HIV (human immunodeficiency virus infection) Hepatitis High cholesterol - Surgical History Surgical History: Surgical History (Last Updated 05/09/18 @ 15:07 by Jarrod Freeman MD) Hx of appendectomy - Tobacco History Second Hand Smoke Exposure: No Tobacco Use In Past 30 Days: Yes Smoking Status: Current every day smoker (patient started smoking again 1 pack every 2-3 days) Tobacco Type: Cigarettes - Alcohol History How Often Do You Have a Drink Containing Alcohol: 2 to 3 times a week - Substance Use History Substance History: Past History - Substance Use Type Crack/Cocaine Type: crack cocaine Status: Early Remission Route Used: Inhalation Frequency: as much as I could buy relapsed after 11 months sober Reason for Use: Feels Good Comment: Patient states he was overcome with grief because of the of his , and he relapsed and got a bunch of crack to feel better. - Travel History Recent Travel in the [facility] Within the Last 8 Weeks: No Recent Travel Out of the Country Within the Last 8 Weeks: No - Immunization History Tetanus Immunization: Unsure Hx Influenza Vaccine This Season: No Psych and Development History - History of Psychiatric Illness Family History of Psychiatric Problems: No Type of Family History Psychiatric Problems: None History of Psychiatric Problems: No Medications and Allergies Allergies Allergy/AdvReac Type Severity Reaction Status Date / Time codeine Allergy Intermediate HIVES, Verified 05/09/18 05:39 RASH AND ITCHING Home Medications Medication Instructions Recorded Confirmed Type aspirin 81 mg PO DAILY 05/09/18 05/09/18 History atorvastatin [Lipitor] mg PO DAILY 05/09/18 History mntczmakji-yjihnlow-efmvfo ala 1 tab PO DAILY 05/09/18 05/09/18 History [Odefsey] entecavir [Baraclude] mg PO DAILY 05/09/18 History hydrochlorothiazide mg PO DAILY 05/09/18 History metformin 05/09/18 History Mental Status Examination Patient able to contract for safety: Yes Behavioral/Attitude: Other (emotinal and crying ) Speech: Unremarkable Thought Process: Clear, Appropriate, Logical Thought Content: Appropriate Hallucination Type: None Insight: Fair Judgment: Fair Mood: Appropriate, Sad Physical Exam Vital signs: Vital Signs 05/09/18 05:28 05/09/18 09:28 Temperature 98.2 F Pulse Rate 119 H 94 H Respiratory Rate 20 16 Blood Pressure 134/82 126/68 Pulse Oximetry 97 100 Intake & Output 05/08/18 05/09/18 05/09/18 18:59 06:59 18:59 Weight 83.915 kg - Constitutional no acute distress - Routine HEENT Exam Head: Present: normocephalic Eye: Present: EOMI, PERRL ENT: Present: mucous membranes moist - Routine Abdominal Exam Present: soft, normoactive bowel sounds - Detailed Upper Extremity Exam Hand/Fingers: Left joint swelling (left hand - palmar area- with mild swelling and blisters- from bursn from the cocaine pipe) - Routine Psychiatric Exam Present: depressed Results - Labs CBC & Chem 7: 05/09/18 06:59 05/09/18 06:59 Labs: Laboratory Results - last 24 hr 05/09/18 05/09/18 05/09/18 06:59 06:59 06:59 WBC 7.5 RBC 4.81 Hgb 15.8 Hct 46.0 MCV 95.5 MCH 32.9 MCHC 34.4 RDW 13.9 Plt Count 199 MPV 8.2 Neut % (Auto) 67.3 Lymph % (Auto) 21.3 [place] % (Auto) 10.6 H Eos % (Auto) 0.5 Baso % (Auto) 0.3 Neut # (Auto) 5.0 Lymph # (Auto) 1.6 [place] # (Auto) 0.8 Eos # (Auto) 0.0 Baso # (Auto) 0.0 WBC Differential . Differential Comment Auto diff final PT INR APTT Sodium 141 Potassium 3.5 Chloride 106 Carbon Dioxide 19.5 L Anion Gap 16 H BUN 18 Creatinine 1.95 H Estimated GFR 44 L Random Glucose 131 H Calcium 8.6 Total Bilirubin 0.4 AST 49 H ALT 49 Alkaline Phosphatase 90 Total Creatine Kinase CK-MB (CK-2) CK-MB (CK-2) % Troponin I B-Natriuretic Peptide Total Protein 7.3 Albumin 3.8 TSH 1.430 Salicylates 2.2 L Urine Opiates Screen Acetaminophen Less than 2.0 L Ur Barbiturates Screen Ur Amphetamines Screen U Benzodiazepines Scrn Urine Cocaine Screen U Cannabinoids Screen Serum Alcohol Less than 3 05/09/18 05/09/18 05/09/18 06:59 07:30 07:30 WBC RBC Hgb Hct MCV MCH MCHC RDW Plt Count MPV Neut % (Auto) Lymph % (Auto) [place] % (Auto) Eos % (Auto) Baso % (Auto) Neut # (Auto) Lymph # (Auto) [place] # (Auto) Eos # (Auto) Baso # (Auto) WBC Differential Differential Comment PT 10.2 INR 1.0 APTT 25.0 Sodium Potassium Chloride Carbon Dioxide Anion Gap BUN Creatinine Estimated GFR Random Glucose Calcium Total Bilirubin AST ALT Alkaline Phosphatase Total Creatine Kinase 1324 H CK-MB (CK-2) 5.6 H CK-MB (CK-2) % 0.4 Troponin I Less than 0.02 L B-Natriuretic Peptide Total Protein Albumin TSH Salicylates Urine Opiates Screen Acetaminophen Ur Barbiturates Screen Ur Amphetamines Screen U Benzodiazepines Scrn Urine Cocaine Screen U Cannabinoids Screen Serum Alcohol 05/09/18 05/09/18 05/09/18 07:30 08:53 13:20 WBC RBC Hgb Hct MCV MCH MCHC RDW Plt Count MPV Neut % (Auto) Lymph % (Auto) [place] % (Auto) Eos % (Auto) Baso % (Auto) Neut # (Auto) Lymph # (Auto) [place] # (Auto) Eos # (Auto) Baso # (Auto) WBC Differential Differential Comment PT INR APTT Sodium Potassium Chloride Carbon Dioxide Anion Gap BUN Creatinine Estimated GFR Random Glucose Calcium Total Bilirubin AST ALT Alkaline Phosphatase Total Creatine Kinase 1185 H CK-MB (CK-2) CK-MB (CK-2) % Troponin I Less than 0.02 L B-Natriuretic Peptide 13 Total Protein Albumin TSH Salicylates Urine Opiates Screen Neg Acetaminophen Ur Barbiturates Screen Neg Ur Amphetamines Screen Neg U Benzodiazepines Scrn Neg Urine Cocaine Screen Pos H U Cannabinoids Screen Pos Serum Alcohol 05/09/18 13:20 WBC RBC Hgb Hct MCV MCH MCHC RDW Plt Count MPV Neut % (Auto) Lymph % (Auto) [place] % (Auto) Eos % (Auto) Baso % (Auto) Neut # (Auto) Lymph # (Auto) [place] # (Auto) Eos # (Auto) Baso # (Auto) WBC Differential Differential Comment PT INR APTT Sodium Potassium Chloride Carbon Dioxide Anion Gap BUN Creatinine Estimated GFR Random Glucose Calcium Total Bilirubin AST ALT Alkaline Phosphatase Total Creatine Kinase Cancelled CK-MB (CK-2) CK-MB (CK-2) % Troponin I B-Natriuretic Peptide Total Protein Albumin TSH Salicylates Urine Opiates Screen Acetaminophen Ur Barbiturates Screen Ur Amphetamines Screen U Benzodiazepines Scrn Urine Cocaine Screen U Cannabinoids Screen Serum Alcohol - Imaging Impressions Chest X-Ray 05/09/18 06:38 CONCLUSION: Negative for acute process. Assessment and Plan - Plan 53 years old male Chest pain realted to recent cocaine use History of hypertension - check troponinns x 2- negative - reviewed 12 LeKG x 2- no acute STTw changes, sinus trhyth - consitnue on ASA, Nitrol paste tid - chek 2 D echo DM type 2 - check A1C - DC Metformin with creatinine of 1.95 ff sugars Left hand -palmar surface with blisters/second degree castro from cocaine pipe - monitor for signs of infection - start Silvadene therapy bid RUBINA- r/o underlying nephropathy - no old labs for comparison - gentle hydration - get renal Ultrasound if no improvement in renal functions HIV/Hep B -continue meds- patient does not have list- we will call his PCP to confirm to restart meds in am Depression with recent of - consult psychiatry service * Involve patient in individual, family and milieu therapies. * Evaluate medication regiment. * Observe and evaluate for appropriate behavior on unit. * Discuss and plan for appropriate after care. d/w patient at length Goals: * Evaluate symptoms of current psychiatric problem(s) * Stabilize behaviors and improve functionality * Diminish relationship conflicts * Improve academic performance - Discharge Discharge Criteria: * Denies suicidal ideation * Denies homicidal ideation * No evidence of psychosis
[2018-05-09 15:23] LABS: CKMB Percent 0.3 % (0.0-4.0); Creatine Kinase MB 3.9 ng/mL (0.5-3.6)
[2018-05-09] MEDS: Sod Chloride 0.9% Inj 1,000 ML IV.CONT SCH (16:38)
--- NOTE | 2018-05-09 21:33 | P.HP ---
History of Present Illness Primary Care Physician: Dieter Vargas MD History of Present Illness: Lety is a 53 years old male with known history of HIV- last CD4 count undetectable, DM type 2 on Metformin, Hepatitis B , smoker and admits to crack cocaine use = and has been clean for 10 months now but admits to relapse last Thursday- - smoke crack cociane through a pipe about $ 300 worth and was sharing this with other individuals. Patient admits to being depressed- hsi recently pass away 04/15 at home in his arms- she was diagnosed iwth CAD and HIV. Admits to suicidal ideations, "don't know what to do", running along IS into the streets and brought in by police. At ER complains of chest pain - reproducible with touch, no nausea or vomting, no history of HTN but as mentioned + hsitory of DM. Ba acted here in the ER. Admitted for further evaluation. Med psychiatry floor has no telemetry- - so we will admit patient ot rule out with 3 troponins and possible transfer to psychaitry unit. - Inpatient Certification If this patient has been admitted as an Inpatient: I certify that the inpatient services were ordered in accordance with Medicare regulations governing the order. This includes certification that hospital inpatient services are reasonable and necessary and in the case of services not specified as inpatient-only under 42 CFR 419.22(n), that they are appropriately provided as inpatient services in accordance to with the 2-midnight benchmark under 43 CFR 412.3(e) Estimated Total Length of Stay (Days): 1 Plans for Post Hospital Care: Not yet determined Review of Systems All other systems reviewed negative except as stated in HPI [facility] - History History Provided By: Patient - Medical History Medical History: Medical History (Last Updated 05/09/18 @ 09:20 by Sheila Jean-Baptiste) Diabetes HIV (human immunodeficiency virus infection) Hepatitis High cholesterol - Surgical History Surgical History: Surgical History (Last Updated 05/09/18 @ 15:07 by Jarrod Freeman MD) Hx of appendectomy - Tobacco History Second Hand Smoke Exposure: No Tobacco Use In Past 30 Days: Yes Smoking Status: Current every day smoker (patient started smoking again 1 pack every 2-3 days) Tobacco Type: Cigarettes - Alcohol History How Often Do You Have a Drink Containing Alcohol: 2 to 3 times a week - Substance Use History Substance History: Past History - Substance Use Type Crack/Cocaine Type: crack cocaine Status: Early Remission Route Used: Inhalation Frequency: as much as I could buy relapsed after 11 months sober Reason for Use: Feels Good Comment: Patient states he was overcome with grief because of the of his , and he relapsed and got a bunch of crack to feel better. - Travel History Recent Travel in the [place] Within the Last 8 Weeks: No Recent Travel Out of the Country Within the Last 8 Weeks: No - Immunization History Tetanus Immunization: Unsure Hx Influenza Vaccine This Season: No Medications and Allergies Active Medications: Active Medications Aspirin (Aspirin Chew) 81 mg PO DAILY [facility] Sodium Chloride (Ns Inj) 1,000 mls @ 70 mls/hr IV.CONT .[id number] [facility] Last Admin: 05/09/18 16:38 Dose: 70 mls/hr Nitroglycerin (Nitro-Bid 2% Oint) 0.5 inch TOPICAL Q6HR [facility] Last Admin: 05/09/18 16:35 Dose: 0.5 inch Silver Sulfadiazine (Silvadine 1% Cream (400 Gm)) 1 applicatio TOPICAL BID [facility] Allergies Allergy/AdvReac Type Severity Reaction Status Date / Time codeine Allergy Intermediate HIVES, Verified 05/09/18 05:39 RASH AND ITCHING Home Medications Medication Instructions Recorded Confirmed Type aspirin 81 mg PO DAILY 05/09/18 05/09/18 History atorvastatin [Lipitor] mg PO DAILY 05/09/18 History vknmwqrvzf-lqwkutyu-tpcyrl ala 1 tab PO DAILY 05/09/18 05/09/18 History [Odefsey] entecavir [Baraclude] mg PO DAILY 05/09/18 History hydrochlorothiazide mg PO DAILY 05/09/18 History metformin 05/09/18 History Exam Vital signs: Vital Signs 05/09/18 05:28 05/09/18 08:00 05/09/18 09:28 Temperature 98.2 F Pulse Rate 119 H 106 H 94 H Respiratory Rate 20 16 16 Blood Pressure 134/82 133/89 126/68 Pulse Oximetry 97 100 05/09/18 10:00 05/09/18 11:05 05/09/18 12:25 Temperature Pulse Rate 100 H 84 78 Respiratory Rate 18 20 18 Blood Pressure 124/83 114/70 114/68 Pulse Oximetry 97 05/09/18 14:42 05/09/18 16:25 Temperature 98.5 F Pulse Rate 82 75 Respiratory Rate 18 18 Blood Pressure 112/59 L 122/71 Pulse Oximetry 95 Intake & Output 05/09/18 05/09/18 05/10/18 06:59 18:59 06:59 Weight 83.915 kg Narrative: Mental Status Examination Patient able to contract for safety: Yes Behavioral/Attitude: Other (emotinal and crying ) Speech: Unremarkable Thought Process: Clear, Appropriate, Logical Thought Content: Appropriate Hallucination Type: None Insight: Fair Judgment: Fair Mood: Appropriate, Sad - Constitutional no acute distress - Routine HEENT Exam Head: Present: normocephalic Eye: Present: EOMI, PERRL ENT: Present: mucous membranes moist - Routine Abdominal Exam Present: soft, normoactive bowel sounds - Detailed Upper Extremity Exam Hand/Fingers: Left joint swelling (left hand - palmar area- with mild swelling and blisters- from bursn from the cocaine pipe) - Routine Psychiatric Exam Present: depressed Results - Labs CBC & Chem 7: 05/09/18 06:59 05/09/18 06:59 Labs: Laboratory Results - last 24 hr 05/09/18 05/09/18 05/09/18 06:59 06:59 06:59 WBC 7.5 RBC 4.81 Hgb 15.8 Hct 46.0 MCV 95.5 MCH 32.9 MCHC 34.4 RDW 13.9 Plt Count 199 MPV 8.2 Neut % (Auto) 67.3 Lymph % (Auto) 21.3 [place] % (Auto) 10.6 H Eos % (Auto) 0.5 Baso % (Auto) 0.3 Neut # (Auto) 5.0 Lymph # (Auto) 1.6 [place] # (Auto) 0.8 Eos # (Auto) 0.0 Baso # (Auto) 0.0 WBC Differential . Differential Comment Auto diff final PT INR APTT Sodium 141 Potassium 3.5 Chloride 106 Carbon Dioxide 19.5 L Anion Gap 16 H BUN 18 Creatinine 1.95 H Estimated GFR 44 L Random Glucose 131 H Calcium 8.6 Total Bilirubin 0.4 AST 49 H ALT 49 Alkaline Phosphatase 90 Total Creatine Kinase CK-MB (CK-2) CK-MB (CK-2) % Troponin I B-Natriuretic Peptide Total Protein 7.3 Albumin 3.8 TSH 1.430 Salicylates 2.2 L Urine Opiates Screen Acetaminophen Less than 2.0 L Ur Barbiturates Screen Ur Amphetamines Screen U Benzodiazepines Scrn Urine Cocaine Screen U Cannabinoids Screen Serum Alcohol Less than 3 05/09/18 05/09/18 05/09/18 06:59 07:30 07:30 WBC RBC Hgb Hct MCV MCH MCHC RDW Plt Count MPV Neut % (Auto) Lymph % (Auto) [place] % (Auto) Eos % (Auto) Baso % (Auto) Neut # (Auto) Lymph # (Auto) [place] # (Auto) Eos # (Auto) Baso # (Auto) WBC Differential Differential Comment PT 10.2 INR 1.0 APTT 25.0 Sodium Potassium Chloride Carbon Dioxide Anion Gap BUN Creatinine Estimated GFR Random Glucose Calcium Total Bilirubin AST ALT Alkaline Phosphatase Total Creatine Kinase 1324 H CK-MB (CK-2) 5.6 H CK-MB (CK-2) % 0.4 Troponin I Less than 0.02 L B-Natriuretic Peptide Total Protein Albumin TSH Salicylates Urine Opiates Screen Acetaminophen Ur Barbiturates Screen Ur Amphetamines Screen U Benzodiazepines Scrn Urine Cocaine Screen U Cannabinoids Screen Serum Alcohol 05/09/18 05/09/18 05/09/18 07:30 08:53 13:20 WBC RBC Hgb Hct MCV MCH MCHC RDW Plt Count MPV Neut % (Auto) Lymph % (Auto) [place] % (Auto) Eos % (Auto) Baso % (Auto) Neut # (Auto) Lymph # (Auto) [place] # (Auto) Eos # (Auto) Baso # (Auto) WBC Differential Differential Comment PT INR APTT Sodium Potassium Chloride Carbon Dioxide Anion Gap BUN Creatinine Estimated GFR Random Glucose Calcium Total Bilirubin AST ALT Alkaline Phosphatase Total Creatine Kinase 1185 H CK-MB (CK-2) 3.9 H CK-MB (CK-2) % 0.3 Troponin I Less than 0.02 L B-Natriuretic Peptide 13 Total Protein Albumin TSH Salicylates Urine Opiates Screen Neg Acetaminophen Ur Barbiturates Screen Neg Ur Amphetamines Screen Neg U Benzodiazepines Scrn Neg Urine Cocaine Screen Pos H U Cannabinoids Screen Pos Serum Alcohol 05/09/18 13:20 WBC RBC Hgb Hct MCV MCH MCHC RDW Plt Count MPV Neut % (Auto) Lymph % (Auto) [place] % (Auto) Eos % (Auto) Baso % (Auto) Neut # (Auto) Lymph # (Auto) [place] # (Auto) Eos # (Auto) Baso # (Auto) WBC Differential Differential Comment PT INR APTT Sodium Potassium Chloride Carbon Dioxide Anion Gap BUN Creatinine Estimated GFR Random Glucose Calcium Total Bilirubin AST ALT Alkaline Phosphatase Total Creatine Kinase Cancelled CK-MB (CK-2) CK-MB (CK-2) % Troponin I B-Natriuretic Peptide Total Protein Albumin TSH Salicylates Urine Opiates Screen Acetaminophen Ur Barbiturates Screen Ur Amphetamines Screen U Benzodiazepines Scrn Urine Cocaine Screen U Cannabinoids Screen Serum Alcohol - Imaging Impressions Chest X-Ray 05/09/18 06:38 CONCLUSION: Negative for acute process. Caprini VTE Risk Assessment Caprini VTE Risk Assessment: No/Low Risk (score <= 1) Caprini Risk Assessment Model: Point Value = 1 Point Value = 2 Point Value = 3 Point Value = 5 Age 41-60 Minor surgery BMI > 25 kg/m2 Swollen legs Varicose veins or History of unexplained or recurrent spontaneous Oral contraceptives or hormone replacement Sepsis (< 1 month) Serious lung disease, including pneumonia (< 1 month) Abnormal pulmonary function Acute myocardial infarction Congestive heart failure (< 1 month) History of inflammatory bowel disease Medical patient at bed rest Age 61-74 Arthroscopic surgery Major open surgery (> 45 min) Laparoscopic surgery (> 45 min) Malignancy Confined to bed (> 72 hours) Immobilizing plaster cast Central venous access Age >= 75 History of VTE Family history of VTE Factor V Leiden Prothrombin [id number] Lupus anticoagulant Anticardiolipin antibodies Elevated serum homocysteine Heparin-induced thrombocytopenia Other congenital or acquired thrombophilia Stroke (< 1 month) Elective arthroplasty Hip, pelvis, or leg fracture Acute spinal cord injury (< 1 month) Prophylaxis Regimen: Total Risk Factor Score Risk Level Prophylaxis Regimen 0-1 Low Early ambulation 2 Moderate Order ONE of the following: *Sequential Compression Device (SCD) *Heparin 5000 units SQ BID 3-4 Higher Order ONE of the following medications: *Heparin 5000 units SQ TID *Enoxaparin/Lovenox 40 mg SQ daily (WT < 150 kg, CrCl > 30 mL/min) *Enoxaparin/Lovenox 30 mg SQ daily (WT < 150 kg, CrCl > 10-29 mL/min) *Enoxaparin/Lovenox 30 mg SQ BID (WT < 150 kg, CrCl > 30 mL/min) AND/OR *Sequential Compression Device (SCD) 5 or more Highest Order ONE of the following medications: *Heparin 5000 units SQ TID (Preferred with Epidurals) *Enoxaparin/Lovenox 40 mg SQ daily (WT < 150 kg, CrCl > 30 mL/min) *Enoxaparin/Lovenox 30 mg SQ daily (WT < 150 kg, CrCl > 10-29 mL/min) *Enoxaparin/Lovenox 30 mg SQ BID (WT < 150 kg, CrCl > 30 mL/min) AND *Sequential Compression Device (SCD) Assessment and Plan - Plan 53 years old male Chest pain realted to recent cocaine use History of hypertension - check troponinns x 2- negative - reviewed 12 L eKG x 2- no acute STTw changes, sinus trhyth - constinue on ASA, Nitrol paste tid - check 2 D echo DM type 2 - check A1C - DC Metformin with creatinine of 1.95 ff sugars Left hand -palmar surface with blisters/second degree castro from cocaine pipe - monitor for signs of infection - start Silvadene therapy bid RUBINA- r/o underlying nephropathy - no old labs for comparison - gentle hydration - get renal Ultrasound if no improvement in renal functions HIV/Hep B -continue meds- patient does not have list- we will call his PCP to confirm to restart meds in am Depression with recent of - consult psychiatry service * Involve patient in individual, family and milieu therapies. * Evaluate medication regiment. * Observe and evaluate for appropriate behavior on unit. * Discuss and plan for appropriate after care.
[2018-05-09] MEDS: Silver Sulfadiazine 1% Ceam 400 GM Jar TOPICAL SCH ×2 (22:25→22:39)
--- NOTE | 2018-05-10 00:08 | ECG ---
Date Performed: 05/09/2018 Time Performed: 07:24:39 PTAGE: 53 years EKG: Sinus rhythm MINIMAL ST ELEVATION INFERIOR LATERALLY, CONSISTENT WITH EARLY REPOLARIZATION PREVIOUS TRACING : 05/25/2017 18.34 Since the previous tracing, no significant change not ed DOCTOR: Stalin Ashley Interpretating Date/Time 05/10/2018 00:08:36
[2018-05-10] MEDS ORDERED: Acetaminophen 325 MG Tablet PO ONE (05:45)
[2018-05-10 06:03] LABS: Calcium 8.1 mg/dL (8.5-10.1); Potassium 3.7 meq/L (3.5-5.1)
[2018-05-10 06:07] LABS: Chol/HDL Ratio 3.29 Ratio; HDL Cholesterol 31.3 mg/dL (40.0-60.0)
[2018-05-10 06:25] LABS: CKMB Percent 0.3 % (0.0-4.0); Creatine Kinase MB 2.2 ng/mL (0.5-3.6)
--- NOTE | 2018-05-10 11:28 | ECG ---
Date Performed: 05/09/2018 Time Performed: 14:09:52 PTAGE: 53 years EKG: Sinus rhythm NORMAL ECG PREVIOUS TRACING : 05/09/2018 07.24 Since the previous tracing, no significant change noted DOCTOR: Abhi Pollack Interpretating Date/Time 05/10/2018 11:26:45
--- NOTE | 2018-05-10 13:23 | P.CONPSY ---
Provisional Diagnosis Admission Date: May 09, 2018 09:18 [place] Major depressive disorder, recurrent, severe, without psychosis, polysubstance dependence including cocaine, marijuana, alcohol [place].: Unspecified personality disorder, cluster B traits [place] III.: HIV, hepatitis C, diabetes History of Present Illness Service: Medicine Primary Care Provider: Dieter Vargas MD History of Present Illness: The patient is a 53 year-old -[place] man, , unemployed, supported by [facility], with psychiatric history of major depressive disorder, polysubstance dependence, including marijuana, cocaine, alcohol, previous psychiatric hospitalizations, he has had a hospitalization in [place] in 2013 under the care of Dr. Faustin, no outpatient care, previous suicide attempts, with medical history of HIV- last CD4 count undetectable, DM type 2 on Metformin, Hepatitis B. patient says that he has been clean of drugs for some months, but admits to relapse last Thursday- smoke crack cocaine through a pipe about $ 300 worth and was sharing this with other individuals. Admitted to suicidal ideations in the ER, "don't know what to do", running along IS into the streets and brought in by police. At ER complains of chest pain - reproducible with touch, no nausea or vomiting , no history of HTN but as mentioned + hsitory of DM. Consulted to psychiatry to address suicidal ideation. Patient is with a one-to-one. On evaluation the patient presents calm, superficially cooperative, very irritable. As per nursing charge the patient has been quite agitated, demanded to be discharged, and disruptive in the floor. The patient reports that he has been depressed since his last month. He says that he at some point had thought to commit suicide and end his life. Patient tells me with tears in his eyes that he does not want to live this life is planning to go to [place] "to see what I can do", even though minutes later he requests to be discharge the [place] act will be lifted because he is not suicidal. The patient is logical, goal- directed, coherent. There is no delusions, paranoia, ideas of reference, loosening of associations present. The patient does report daily use of cocaine , marijuana and alcohol occasionally. Review of Systems Constitutional: Denies anorexia, Denies body ache(s), Denies chills, Denies daytime sleepiness, Denies excessive sweating, Denies fatigue, Denies fever(s), Denies headache(s), Denies increased appetite, Denies lack of energy, Denies malaise, Denies night sweats, Denies weakness, Denies weight gain, Denies weight loss, Denies other Eyes: Denies blind spots, Denies blurry vision, Denies bulging eyes, Denies change in vision, Denies double vision, Denies discharge, Denies dry eyes, Denies floaters, Denies irritation, Denies itchy eyes, Denies loss of vision, Denies pain, Denies requires corrective lenses, Denies sensitivity to light, Denies other Ears, Nose, Mouth, and Throat: Denies abnormal hearing, Denies bleeding gums, Denies bad breath, Denies change in voice, Denies dental pain, Denies difficulty swallowing, Denies dizziness, Denies dry mouth, Denies ear discharge , Denies ear pain, Denies facial pain, Denies headache(s), Denies hearing loss, Denies hoarseness, Denies lip swelling, Denies nosebleed, Denies mouth lesions, Denies mouth pain, Denies nasal congestion, Denies nasal discharge, Denies nasal obstruction, Denies nasal trauma, Denies neck lump, Denies neck pain, Denies nose pain, Denies pain with swallowing, Denies poor balance, Denies post nasal drip, Denies ringing in the ears, Denies sinus pain, Denies sinus pressure , Denies sore throat, Denies throat swelling, Denies tongue swelling, Denies other Cardiovascular: Denies chest pain, Denies chest pain at rest, Denies chest pain with activity, Denies excessive sweating, Denies fainting, Denies fast heart rate, Denies foot swelling, Denies generalized swelling, Denies irregular heart rhythm, Denies leg pain with activity, Denies leg sores, Denies leg swelling, Denies lightheadedness, Denies radiating jaw, neck or arm pain, Denies rapid, pounding, or irregular heartbeat, Denies shortness of breath, Denies shortness of breath with activity, Denies shortness of breath when lying down, Denies shortness of breath causing sudden awakening, Denies slow heart rate, Denies other Respiratory: Denies change in phlegm color, Denies chest congestion, Denies cough, Denies coughing up blood, Denies excessive phlegm production, Denies pain on inspiration, Denies pain with cough, Denies shortness of breath, Denies shortness of breath with activity, Denies snoring, Denies stridor, Denies wheezing, Denies other Gastrointestinal: Denies abdominal pain, Denies belching, Denies black, tarry stools, Denies bloating, Denies bright, red blood in stools, Denies change in bowel habits, Denies constant urge to pass stool, Denies change in stools, Denies coffee ground vomit, Denies constipation, Denies cramping, Denies difficulty swallowing, Denies excessive passing of gas, Denies feeling full early, Denies heartburn, Denies incontinent of stools, Denies loose stools, Denies nausea, Denies pain with swallowing, Denies vomiting, Denies vomiting blood, Denies other Genitourinary: Denies blood in semen, Denies blood in urine, Denies decreased urination, Denies difficulty urinating, Denies difficulty with ejaculations, Denies erectile dysfunction, Denies genital lesions, Denies genital pain, Denies painful urination, Denies side pain, Denies frequent nighttime urination , Denies painful ejaculations, Denies penile discharge, Denies scrotal swelling , Denies testicle lump, Denies testicle pain, Denies urinary frequency, Denies urinary hesitancy, Denies urinary incontinence, Denies urinary urgency, Denies other Musculoskeletal: Denies abnormal walking, Denies back pain, Denies body aches, Denies decreased muscle mass, Denies deformity, Denies joint pain, Denies joint swelling, Denies limited joint movement, Denies loss of height, Denies muscle cramps, Denies muscle weakness, Denies neck pain, Denies numbness, Denies radiating pain into limb, Denies stiffness, Denies tingling, Denies other Psychiatric: Reports depression, Reports thoughts of hurting/killing others PMFSH - History History Provided By: Patient - Medical History Medical History: Medical History (Last Updated 05/09/18 @ 09:20 by Sheila Jean-Baptiste) Diabetes HIV (human immunodeficiency virus infection) Hepatitis High cholesterol - Surgical History Surgical History: Surgical History (Last Updated 05/09/18 @ 15:07 by Jarrod Freeman MD) Hx of appendectomy - Tobacco History Second Hand Smoke Exposure: No Tobacco Use In Past 30 Days: Yes Smoking Status: Current every day smoker (patient started smoking again 1 pack every 2-3 days) Tobacco Type: Cigarettes - Alcohol History How Often Do You Have a Drink Containing Alcohol: 2 to 3 times a week - Substance Use History Substance History: Past History - Substance Use Type Crack/Cocaine Type: crack cocaine Status: Early Remission Route Used: Inhalation Frequency: as much as I could buy relapsed after 11 months sober Reason for Use: Feels Good Comment: Patient states he was overcome with grief because of the of his , and he relapsed and got a bunch of crack to feel better. - Travel History Recent Travel in the [place] Within the Last 8 Weeks: No Recent Travel Out of the Country Within the Last 8 Weeks: No - Immunization History Tetanus Immunization: Unsure Hx Influenza Vaccine This Season: No Medications and Allergies Active Medications: Active Medications Aspirin (Aspirin Chew) 81 mg PO DAILY [facility] Last Admin: 05/10/18 08:59 Dose: 81 mg Bupropion HCl (Wellbutrin) 75 mg PO BID [facility] Sodium Chloride (Ns Inj) 1,000 mls @ 70 mls/hr IV.CONT .[id number] [facility] Last Admin: 05/09/18 16:38 Dose: 70 mls/hr Nitroglycerin (Nitro-Bid 2% Oint) 0.5 inch TOPICAL Q6HR [facility] Last Admin: 05/10/18 12:00 Dose: Not Given Silver Sulfadiazine (Silvadine 1% Cream (400 Gm)) 1 applicatio TOPICAL BID [facility] Last Admin: 05/09/18 22:25 Dose: 1 applicatio Allergies Allergy/AdvReac Type Severity Reaction Status Date / Time codeine Allergy Intermediate HIVES, Verified 05/09/18 05:39 RASH AND ITCHING Home Medications Medication Instructions Recorded Confirmed Type aspirin 81 mg PO DAILY 05/09/18 05/09/18 History atorvastatin [Lipitor] mg PO DAILY 05/09/18 History yornhtkvdm-drqmotzm-hhprot ala 1 tab PO DAILY 05/09/18 05/09/18 History [Odefsey] entecavir [Baraclude] 1 mg PO DAILY 05/09/18 05/10/18 History hydrochlorothiazide 12.5 mg PO DIRECTED 05/09/18 05/10/18 History metformin 05/09/18 History docusate sodium 100 mg PO DAILY 05/10/18 05/10/18 History ergocalciferol (vitamin D2) 1.25 cap PO QWEEK 05/10/18 05/10/18 History [Vitamin D2] multivitamin,hk-uweu-ydepsgtm 1 tab PO DAILY 05/10/18 05/10/18 History [Multilex-T and M] valacyclovir 1,000 mg PO DAILY 05/10/18 05/10/18 History Exam Vital signs: Vital Signs 05/09/18 14:42 05/09/18 16:25 05/09/18 20:30 Temperature 98.5 F 98 F Pulse Rate 82 75 89 Respiratory Rate 18 18 18 Blood Pressure 112/59 L 122/71 123/80 Pulse Oximetry 95 98 05/10/18 01:00 05/10/18 03:20 05/10/18 07:54 Temperature 98.6 F 98 F Pulse Rate 80 88 Respiratory Rate 18 20 16 Blood Pressure 114/59 L 115/60 Pulse Oximetry 96 98 05/10/18 08:33 05/10/18 12:00 Temperature 98.6 F 98.1 F Pulse Rate 69 68 Respiratory Rate 20 Blood Pressure 105/63 120/64 Pulse Oximetry 97 98 Intake & Output 05/09/18 05/10/18 05/10/18 18:59 06:59 18:59 Intake Total 2049 Balance 2049 Weight 84 kg Intake: Oral 2049 Other: # Voids 3 # Bowel Movements 0 Narrative: Patient is a little bit agitated, but no withdrawal, no EPS present - Constitutional no acute distress Mental Status Examination Appearance: Appropriate Consciousness: Alert Orientation: x4 Motor Activity: Normal gait Speech: Unremarkable Language: Adequate Fund of Knowledge: Adequate Memory: Unremarkable Mood: Sad, Irritable Affect: Irritable Thought Process & Associations: Intact Thought Content: Appropriate Hallucination Type: None Suicidal Ideation: Yes Suicidal Plan: No Suicidal Intention: No Homicidal Ideation: No Homicidal Plan: No Homicidal Intention: No Insight: Poor Judgment: Poor Assessment and Plan - Assessment (1) Depression (emotion) Code(s): F32.9 - Major depressive disorder, single episode, unspecified Status : Acute - Plan Plan: Estimated LOS: [] days Psychiatric evaluation today the patient presents quite irritable, guarded, but reports that since his about a month ago, he has been depressed, feeling worthless, hopeless, helpless, has increased the use of drugs, cocaine, alcohol, and has been planning to commit suicide. This is a patient with a psychiatric history of depression, cocaine and cannabis use disorder, previous attempts, noncompliant with medications. He has an elevated risk of danger to self, he needs psychiatric admission for stabilization and safety. Continue sitter in the medical floor. Transfer patient to psychiatry was medically appropriate. I will start Wellbutrin 75 mg twice daily for depression. Justification for Continued Inpatient Stay: The patient has active depression and SI (1) Depression (emotion) Qualifiers: Depression Type: major depressive disorder Major depression recurrence: recurrent Major depression episode severity: severe Psychotic features: without psychotic features Qualified Code(s): F32.9 - Major depressive disorder , single episode, unspecified
[2018-05-10] MEDS: Silver Sulfadiazine 1% Ceam 400 GM Jar TOPICAL SCH ×2 (17:45→22:36)
[2018-05-10] MEDS ORDERED: Non-Formulary Drug (Valacyclovir [Valacyclovir] 1,000 MG) PO SCH (18:00)
[2018-05-10] MEDS ORDERED: MULTIVITAMIN TX IRON MINERALS PO SCH (18:00)
[2018-05-10] MEDS ORDERED: ENTECAVIR 1 MG PO SCH (18:00)
[2018-05-10] MEDS: buPROPion 75 MG Tablet PO SCH (22:33)
[2018-05-10] MEDS: Sod Chloride 0.9% Inj 1,000 ML IV.CONT SCH (22:35)
[2018-05-11] MEDS: EMTRICITAB RILPIVIR TENOFO ALA PO SCH ×2 (00:58→09:07)
[2018-05-11] MEDS: Sod Chloride 0.9% Inj 1,000 ML IV.CONT SCH ×2 (01:00→09:08)
[2018-05-11] MEDS: buPROPion 75 MG Tablet PO SCH (08:52)
[2018-05-11] MEDS ORDERED: Multivitamin/Minerals Therapeutic Tablet PO SCH (09:00)
[2018-05-11] MEDS ORDERED: valACYclovir 500 MG Tab PO SCH (09:00)
[2018-05-11] MEDS: Silver Sulfadiazine 1% Ceam 400 GM Jar TOPICAL SCH (09:06)
--- NOTE | 2018-05-11 11:48 | P.PNIM ---
Subjective Interval history: At entry, the patient was seen on 05/10/18. Patient still complaining of chest pain 05/18, substernal nonradiating. Denies shortness of breath. Physical Exam Vital signs: Vital Signs 05/10/18 12:00 05/10/18 15:43 05/10/18 20:00 Temperature 98.1 F 97.9 F 98.6 F Pulse Rate 68 78 74 Respiratory Rate 20 18 18 Blood Pressure 120/64 123/57 L 132/74 Pulse Oximetry 98 96 18 L 05/11/18 00:00 05/11/18 04:00 05/11/18 08:00 Temperature 98.5 F 98.8 F 98.4 F Pulse Rate 70 77 63 Respiratory Rate 18 18 20 Blood Pressure 124/76 140/70 116/74 Pulse Oximetry 97 100 Intake & Output 05/10/18 05/11/18 05/11/18 18:59 06:59 18:59 Intake Total 1000 / 1000 Balance 1000 / 1000 Intake: IV 1000 / 1000 NS Inj 1,000 ML @ 70 mls/hr IV. 1000 / 1000 CONT .[id number] [facility] Rx#:[id number] - Constitutional no acute distress - Routine HEENT Exam Head: Present: normocephalic - Routine Neck Exam Present: supple - Routine Respiratory Exam Present: CTA bilaterally - Routine Cardiovascular Exam Present: RRR, S1, S2 - Routine Abdominal Exam Present: soft, normoactive bowel sounds - Routine Skin Exam Present: intact - Routine Neurological Exam Present: alert, oriented X3, CN II-XII intact Results - Labs CBC & Chem 7: 05/09/18 06:59 05/10/18 02:51 Laboratory Results - last 24 hr 05/10/18 17:39 POC Glucose 94 Assessment and Plan - Plan 53 years old male Chest pain realted to recent cocaine use History of hypertension -Troponin negative x3 - reviewed 12 L eKG x 2- no acute STTw changes, sinus trhyth - constinue on ASA, Nitrol paste tid - check 2 D echo DM type 2 -Metformin held secondary to increased creatinine. ff sugars Left hand -palmar surface with blisters/second degree castro from cocaine pipe - monitor for signs of infection -Continue Silvadene therapy bid RUBINA- r/o underlying nephropathy -Upper review of review of records patient's creatinine 1.4-1.5. -Treated with IV fluids - get renal Ultrasound if no improvement in renal functions -Creatinine back to baseline. HIV/Hep B -continue meds- patient does not have list- we will call his PCP to confirm to restart meds in am Depression with recent of - consult psychiatry service. At the psychiatric recommendations the patient will need inpatient psychiatric treatment.
[2018-05-11 12:41] VITALS: BP 116/74; PULSE 63; TEMP 98.4; O2SAT 100
[2018-05-11 13:22] VITALS: RESP 20
--- NOTE | 2018-05-11 19:59 | P.DS ---
Date of admission: 05/09/18 09:18 Primary care physician: Dieter Vargas MD Attending physician on discharge: Gary Acosta Brief History from admission: Lety is a 53 years old male with known history of HIV- last CD4 count undetectable, DM type 2 on Metformin, Hepatitis B , smoker and admits to crack cocaine use = and has been clean for 10 months now but admits to relapse last Thursday- - smoke crack cociane through a pipe about $ 300 worth and was sharing this with other individuals. Patient admits to being depressed- hsi recently pass away 04/15 at home in his arms- she was diagnosed iwth CAD and HIV. Admits to suicidal ideations, "don't know what to do", running along IS into the streets and brought in by police. At ER complains of chest pain - reproducible with touch, no nausea or vomting, no history of HTN but as mentioned + hsitory of DM. Ba acted here in the ER. Admitted for further evaluation. Med psychiatry floor has no telemetry- - so we will admit patient ot rule out with 3 troponins and possible transfer to psychaitry unit. DS: Diagnosis - Discharge Diagnosis (1) Chest pain Status: Resolved (2) Cocaine intoxication Status: Resolved (3) Depression (emotion) Status: Acute (4) Rhabdomyolysis Status: Resolved DS: Summary Hospital Course: The patient was admitted and placed under Cosme act. The patient chest pain likely related to recent cocaine use and history of hypertension. Troponins were trended and negative 3. EKG did not show an acute ST-T changes. The patient was treated with aspirin, Nitropaste 3 times daily. Metformin was held secondary to increased creatinine which improved. Acute kidney injury on chronic kidney disease stage III. Upon review of records the patient's baseline creatinine between 1.41.5. AKA likely was secondary to prerenal azotemia and cocaine use. Creatinine went back to baseline prior to discharge. The patient also also history of hepatitis B and HIV. All medications were continued once the patient presented his list of medications. Continue HAART. The patient also exhibits signs of major depression with recent of . Psychiatry was consult did and recommended the patient would need inpatient psychiatric admission. On the day of discharge the patient tried to elope from the hospital and had to be restrained. - Time Spent with Patient Total time spent providing and/or coordinating discharge services: Greater than 30 minutes - Quality: VTE Deep Vein Thrombosis/Pulmonary Embolism Present on Admission: No Exam Vital signs: Vital Signs 05/10/18 20:00 05/11/18 00:00 05/11/18 04:00 Temperature 98.6 F 98.5 F 98.8 F Pulse Rate 74 70 77 Respiratory Rate 18 18 18 Blood Pressure 132/74 124/76 140/70 Pulse Oximetry 18 L 97 100 05/11/18 08:00 Temperature 98.4 F Pulse Rate 63 Respiratory Rate 20 Blood Pressure 116/74 Pulse Oximetry Intake & Output 05/11/18 05/11/18 05/12/18 06:59 18:59 06:59 Intake Total 1000 / 1000 Balance 1000 / 1000 Intake: IV 1000 / 1000 NS Inj 1,000 ML @ 70 mls/hr IV. 1000 / 1000 CONT .[id number] [facility] Rx#:[id number] Narrative: - Constitutional no acute distress - Routine HEENT Exam Head: Present: normocephalic - Routine Neck Exam Present: supple - Routine Respiratory Exam Present: CTA bilaterally - Routine Cardiovascular Exam Present: RRR, S1, S2 - Routine Abdominal Exam Present: soft, normoactive bowel sounds - Routine Skin Exam Present: intact - Routine Neurological Exam Present: alert, oriented X3, CN II-XII intact Results Procedures completed during hospitalization: none - Impressions ITS Impressions Chest X-Ray 05/09/18 06:38 CONCLUSION: Negative for acute process. Discharge Plan - Discharge Disposition Patient Disposition: [facility] Disc To [facility] Facility - Discharge Condition Condition: Stable - Discharge Order Discharge Orders: Discharge Order (Routine); Ordered 05/11/18 Ordered By: Alejo Gómez - Physicians Team Primary Care Provider: Dieter Vargas Attending Provider: Gary Acosta Other Providers: Garland Lopez MD
== END 2018-05-11 11:32 ==
LOC: NEPC 05:22 → N05 05:22 → NEDA 05:22 → N05 14:46
PROVIDERS: ADMIT Hospitalist; ATTEND Hospitalist

== ENCOUNTER 2018-05-11 11:45 | Inpatient (IN) ==
[2018-05-11] MEDS ORDERED: Aluminum/Magnesium/Simethacone Susp 30 ML UDC PO PRN (13:08)
[2018-05-11] MEDS ORDERED: Bisacodyl 10 MG Supp RECTAL PRN (13:08)
--- NOTE | 2018-05-11 13:13 | P.PNPSY ---
Subjective Remarks: Patient was seen today for psychiatric reevaluation. The patient was found quite agitated, very irritable, voicing profanities in the floor, as I tried to de-escalate the patient verbally, the patient got up his bed and tried to elope from the hospital. As per nurse, the patient has being acting this way since yesterday, he had to be redirected multiple times, he has already tried to elope twice, and for this reason he has been one-to-one. Mental Status Examination Appearance: Appropriate Consciousness: Alert Orientation: x4 Speech: Rapid, Other (Loud) Fund of Knowledge: Adequate Memory: Unremarkable Mood: Angry Affect: Irritable Thought Process & Associations: Goal directed Hallucination Type: None Delusion Type: None Suicidal Ideation: No Suicidal Plan: No Suicidal Intention: No Homicidal Ideation: No Homicidal Plan: No Homicidal Intention: No Insight: Poor Judgment: Poor Assessment and Plan - Assessment (1) Depression (emotion) Code(s): F32.9 - Major depressive disorder, single episode, unspecified Status : Acute - Plan Plan: Estimated LOS: [] days The patient seems to be quite irritable, verbally aggressive, behaviorally dysregulated, the patient is not forthcoming with the psychiatric reevaluation, no cooperative, for this reason I am unable to lift his Cosme act, he would be admitted in psychiatry for stabilization and safety. Justification for Continued Inpatient Stay: The patient is agitated, aggressive. (1) Depression (emotion) Qualifiers: Depression Type: major depressive disorder Major depression recurrence: recurrent Major depression episode severity: severe
[2018-05-11] MEDS: Senna/Docusate Sodium 8.6/50 MG Tablet PO SCH (21:26)
[2018-05-12] MEDS ORDERED: Dextrose 50% in Water 50 ML Vial IV.PUSH PRN (00:04)
[2018-05-12 07:07] LABS: Calcium 8.7 mg/dL (8.5-10.1); Potassium 3.9 meq/L (3.5-5.1)
[2018-05-12 07:11] LABS: Chol/HDL Ratio 3.63 Ratio; HDL Cholesterol 35.5 mg/dL (40.0-60.0)
[2018-05-12] MEDS ORDERED: Insulin NovoLIN Regular Correctional Sugar Inj SQ SCH (08:00)
[2018-05-12] MEDS ORDERED: Insulin NovoLOG Aspart Correctional Sugar Inj SQ SCH (08:00)
[2018-05-12] MEDS ORDERED: ODEFSEY PO SCH (09:00)
[2018-05-12] MEDS ORDERED: Multivitamin/Minerals Therapeutic Tablet PO SCH (09:00)
[2018-05-12] MEDS ORDERED: valACYclovir 500 MG Tab PO SCH (09:00)
[2018-05-12] MEDS: Senna/Docusate Sodium 8.6/50 MG Tablet PO SCH (10:13)
[2018-05-12] MEDS ORDERED: Non-Formulary Drug (Hydrochlorothiazide [Hydrochlorothiazide] 12.5 MG) PO SCH (11:30)
[2018-05-12] MEDS ORDERED: ERGOCALCIFEROL 50000 UNIT PO SCH (11:30)
[2018-05-12] MEDS ORDERED: [UNRECOGNIZED DRUG - OTHER] PO SCH (11:30)
[2018-05-12 11:38] LABS: Hemoglobin A1c 5.5 % (4.3-6.0)
--- NOTE | 2018-05-12 11:42 | P.HPPSY ---
Provisional Diagnosis Admission Date: May 11, 2018 11:45 [place] I.: Adjustment disorder with mixed disturbances of emotion and conduct, cocaine abuse Competence Certification of Person's Competence To Provide Express and Informed Consent I have personally examined Willi Morrison, a person being served at [facility] on, May 12, 2018 1129. Express and informed consent means consent voluntarily given in writing, by a competent person, after sufficient explanation and disclosure of the subject matter involved to enable the person to make a knowing and willful decision without any element of force, fraud, deceit, duress, or other form of constraint or coercion. This person is 18 years of age or older, is not now known to be incompetent to consent to treatment with a guardian advocate, and does not have a health care surrogate or proxy currently making medical treatment decisions. I have found this person to be one of the following: xxx[] Competent to provide express and informed consent, as defined above, for voluntary admission to this facility and is competent to provide express and informed consent for treatment. He/she has the consistent capacity to make well reasoned, willful, and knowing decisions concerning his or her medical or mental health treatment. The person fully and consistently understands the purpose of the admission for examination/placement and is fully capable of personally exercising all rights assured [place] Incompetent to provide express and informed consent to voluntary admission, and this is incompetent to provide express and informed consent to treatment. The person must be transferred to involuntary status and a petition for a guardian advocate filed with the Circuit Court. [] Refusing to provide express and informed consent to voluntary admission but is competent to provide express and informed consent for treatment. The person must be discharged or transferred to involuntary status. Form shall be completed within 24 hours of a person's arrival at the receiving facility and filed in the clinical record of each person: 1. Admitted on a voluntary basis 2. Permitted to provide express and informed consent to his/her own treatment 3. Allowed to transfer from involuntary to voluntary status 4. Prior to permitting a person to consent to his or her own treatment after having been previously found incompetent to consent to treatment. History of Present Illness Capacity: Has capacity History of Present Illness: Patient is a 53-year-old -[place] male known to me and to [facility] from multiple prior visits none recently comes in under Cosme act dated 05/09/2018 at 6 :43 PM signed by Yoli Swenson MD that document reviewed stating depression and potential substance ingestion and reports she currently about hurting himself has no plan. Patient was admitted to the medical side seen in consultation by Dr. Robbins. Retained. Patient medically cleared and transferred to the psychiatric unit. At the present time patient walking quietly with me. Prior to this she was quite angry profane quite insulting with attempts and intimidation towards staff and other patients. However he did recognize me from prior care in the calm down he said his of 18 years in his arms on 04/15/18 that he still grieves her. He did relapse and was cocaine addictions related to that and is been using heavily for a few days. He acknowledges his HIV he acknowledges his stated cooperation with his medications and those follow -up with Dr. Vargas in the community. He states she has good support from his parents. At this time he denies suicidality homicidality voice or visions. He just wants to go home to be with his family. He is able contract to do no harm. Patient has a long history of multiple drug abuse. Along with a history of mental health issues. He states he is sleeping somewhat better now his appetite is good. At this time patient does not meet Cosme criteria thus I will lift Cosme act allow patient to be discharged to himself, no Rx by me, he may continue his own home scheduled medications, follow-up with Dr. Vargas his HIV physician, he may consider talk therapy and asking Dr. Vargas for possible referral - Inpatient Certification I certify that the inpatient services were ordered in accordance with Medicare regulations governing the order. This includes certification that hospital inpatient services are reasonable and necessary and in the case of services not specified as inpatient-only under 42 CFR 419.22(n), that they are appropriately provided as inpatient services in accordance to with the 2-midnight benchmark under 43 CFR 412.3(e) I certify that inpatient psychiatric hospital services are medically necessary. Evaluation and treatment and/or diagnostic testing are expected to improve the patient's condition. The patient needs on a daily basis, active treatment furnished directly by or requiring the supervision of inpatient psychiatric facility personnel. Estimated Total Length of Stay (Days): 1 Plans for Post Hospital Care: Home Review of Systems All other systems reviewed negative except as stated in HPI PMFSH - History History Provided By: Patient - Medical History Medical History: Medical History (Last Updated 05/09/18 @ 09:20 by Sheila Jean-Baptiste) Diabetes HIV (human immunodeficiency virus infection) Hepatitis High cholesterol - Surgical History Surgical History: Surgical History (Last Updated 05/09/18 @ 15:07 by Jarrod Freeman MD) Hx of appendectomy - Tobacco History Second Hand Smoke Exposure: No Tobacco Use In Past 30 Days: Yes Smoking Status: Current every day smoker Tobacco Type: Cigarettes - Alcohol History How Often Do You Have a Drink Containing Alcohol: 2 to 4 times a month - Substance Use History Substance History: Active Abuse, Past History - Substance Use Type Crack/Cocaine Type: Used 1 time in 11 months Status: Early Remission Route Used: Inhalation Frequency: 1 time in 11 months Comment: Recent of causing relapse Quality Measures - Psychiatric History Psychological trauma history: Patient's who had a history of coronary artery disease and HIV in his arms and 6/7 Violence risk to others in the last 6 months: Patient somewhat angry involved with who he denies any thoughts of harming himself or others Violence risk to self in the last 6 months: Patient denies any suicidal ideation intent or plan at this time - Substance Abuse History Drug or alcohol use in the past 12 months: He has cocaine and occasional alcohol - Patient Strengths Patient's strengths (minimum of 2): Patient verbal able access healthcare Medications and Allergies Active Medications: Active Medications Al Hydrox/Mg Hydrox/Simethicone (Mag-Al Plus Susp Liq) 30 ml PO Q6H PRN PRN Reason: DYSPEPSIA Al Hydroxide/Mg Hydroxide (Milk Of Magnesia Liq) 30 ml PO Q12H PRN PRN Reason: Mild Constipation Aspirin (Ecotrin) 81 mg PO DAILY [facility] Last Admin: 05/12/18 10:09 Dose: 81 mg Atorvastatin Calcium (Lipitor) 40 mg PO HS [facility] Last Admin: 05/11/18 21:28 Dose: 40 mg Bisacodyl (Dulcolax Supp) 10 mg RECTAL DAILY PRN PRN Reason: SEVERE CONSITIPATION Bisacodyl (Dulcolax Ec) 5 mg PO DAILY [facility] Last Admin: 05/12/18 10:13 Dose: 5 mg Dextrose (D50w Vial) 50 ml IV.PUSH UNSCH PRN PRN Reason: PER HYPOGLYCEMIA PROTOCOL Entecavir (Baraclude) 1 mg PO DAILY [facility] Last Admin: 05/12/18 10:10 Dose: 1 mg Ergocalciferol (Vitamind2) 50,000 unit PO WEEKLY [facility] Glucagon (Glucagon Inj) 1 mg OTHER PRN PRN PRN Reason: for Hypoglycemia Protocol Insulin Human Regular (Novolin R Supplemental Scale) 0 units SQ ACHS [facility]; Protocol Last Admin: 05/12/18 08:06 Dose: Not Given Lactulose (Lactulose Liq) 30 ml PO DAILY PRN PRN Reason: SEVERE CONSITIPATION Multivitamins/Minerals (Theragran-M) 1 tab PO DAILY [facility] Last Admin: 05/12/18 10:09 Dose: 1 tab Non-Formulary Drug ( (Odefsey Tab)) 0 each PO DAILY [facility] Non-Formulary Medication (Aspirin [Aspirin]) 81 mg PO DAILY [facility] Non-Formulary Medication (Atorvastatin [Lipitor]) 40 mg PO DAILY [facility] Non-Formulary Medication (Bisacodyl [Dulcolax (Bisacodyl)]) 5 mg PO DAILY [facility] Non-Formulary Medication (Xchwqdwwdq-Yrwymagw-Ppsnta Ala [Odefsey]) 1 tab PO DAILY [facility] Non-Formulary Medication (Entecavir [Baraclude]) 1 mg PO DAILY [facility] Non-Formulary Medication (Ergocalciferol (Vitamin D2) [Ergocalciferol (Vitamin D2)]) 50,000 unit PO QWEEK [facility] Non-Formulary Medication (Hydrochlorothiazide [Hydrochlorothiazide]) 12.5 mg PO DIRECTED [facility] Non-Formulary Medication (Metformin [Metformin]) 500 mg PO DAILY [facility] Non-Formulary Medication (Multivitamin,If-Oojo-Ycyzblbh [Multilex-T And M]) 1 tab PO DAILY [facility] Non-Formulary Medication (Valacyclovir [Valacyclovir]) 1,000 mg PO DAILY [facility] Senna/Docusate Sodium (Bhavana-Colace) 1 tab PO BID [facility] Last Admin: 05/12/18 10:13 Dose: 1 tab Sennosides (Senokot) 17.2 mg PO Q12H PRN PRN Reason: Moderate Constipation Valacyclovir HCl (Valtrex) 1,000 mg PO DAILY [facility] Allergies Allergy/AdvReac Type Severity Reaction Status Date / Time codeine Allergy Intermediate HIVES, Verified 05/09/18 05:39 RASH AND ITCHING Home Medications Medication Instructions Recorded Confirmed Type aspirin 81 mg PO DAILY 05/09/18 05/11/18 History atorvastatin [Lipitor] 40 mg PO DAILY 05/09/18 05/11/18 History btaepqedpm-gzeikvme-ulinwp ala 1 tab PO DAILY 05/09/18 05/11/18 History [Odefsey] entecavir [Baraclude] 1 mg PO DAILY 05/09/18 05/11/18 History hydrochlorothiazide 12.5 mg PO DIRECTED 05/09/18 05/11/18 History metformin 500 mg PO DAILY 05/09/18 05/11/18 History multivitamin,lv-ggvz-sayhbwtc 1 tab PO DAILY 05/10/18 05/11/18 History [Multilex-T and M] valacyclovir 1,000 mg PO DAILY 05/10/18 05/11/18 History bisacodyl [Dulcolax (bisacodyl)] 5 mg PO DAILY 05/11/18 05/11/18 History ergocalciferol (vitamin D2) 50,000 unit PO QWEEK 05/11/18 05/11/18 History Results - Labs CBC & Chem 7: 05/12/18 05:34 Labs: Laboratory Results - last 24 hr 05/12/18 05:34 Sodium 143 Potassium 3.9 Chloride 108 H Carbon Dioxide 24.0 Anion Gap 11 BUN 13 Creatinine 1.31 H Estimated GFR 69 L Random Glucose 90 Calcium 8.7 Triglycerides 100 Cholesterol 129 LDL Cholesterol, Calc 74 HDL Cholesterol 35.5 L Cholesterol/HDL Ratio 3.63 Exam Vital signs: Vital Signs 05/11/18 16:00 05/12/18 05:40 Temperature 98.7 F 98.3 F Pulse Rate 74 66 Respiratory Rate 17 18 Blood Pressure 152/90 H 135/71 Pulse Oximetry 95 Intake & Output 05/11/18 05/12/18 05/12/18 18:59 06:59 18:59 Weight 105.1 kg Mental Status Examination Appearance: Appropriate Consciousness: Alert Orientation: x4 Motor Activity: Normal gait Speech: Unremarkable, Rapid Language: Adequate Fund of Knowledge: Adequate Attention and Concentration: Adequate Memory: Unremarkable Mood: Sad, Irritable Affect: Other (Slight increased range and intensity) Thought Process & Associations: Goal directed Thought Content: Appropriate Hallucination Type: None Delusion Type: None Suicidal Ideation: No Suicidal Plan: No Suicidal Intention: No Homicidal Ideation: No Homicidal Plan: No Homicidal Intention: No Insight: Fair Judgment: Poor Assessment and Plan - Assessment (1) Depression (emotion) Code(s): F32.9 - Major depressive disorder, single episode, unspecified Status : Acute (2) Adjustment disorder with mixed disturbance of emotions and conduct Code(s): F43.25 - Adjustment disorder with mixed disturbance of emotions and conduct Status: Acute (3) Cocaine abuse Code(s): F14.10 - Cocaine abuse, uncomplicated Status: Acute - Plan Plan: At this time patient does not meet Cosme act criteria lift Cosme act. Patient to be discharged from [facility]. No Rx by me. Patient may continue his own scheduled home medications. Follow up with Dr. Vargas. They get counseling referral from Dr. Vargas if desired Justification for Continued Inpatient Stay: See above Request Healthcare Surrogate/Guardian Advocate?: No - Attending Attestation I have done the above examination and dictated the above note (1) Depression (emotion) Qualifiers: Depression Type: major depressive disorder Major depression recurrence: recurrent Major depression episode severity: severe
[2018-05-13] MEDS ORDERED: ATORVASTATIN 40 MG PO SCH (09:00)
[2018-05-13] MEDS ORDERED: EMTRICITAB RILPIVIR TENOFO ALA PO SCH (09:00)
[2018-05-13] MEDS ORDERED: MULTIVITAMIN TX IRON MINERALS PO SCH (09:00)
[2018-05-13] MEDS ORDERED: BISACODYL 5 MG PO SCH (09:00)
[2018-05-13] MEDS ORDERED: ENTECAVIR 1 MG PO SCH (09:00)
[2018-05-13] MEDS ORDERED: ASPIRIN 81 MG PO SCH (09:00)
[2018-05-13] MEDS ORDERED: METFORMIN 500 MG PO SCH (09:00)
[2018-05-13] MEDS ORDERED: Non-Formulary Drug (Valacyclovir [Valacyclovir] 1,000 MG) PO SCH (09:00)
--- NOTE | 2018-05-20 14:20 | P.DSPSY ---
Psychiatry Discharge Summary Inpatient Psychiatric care?: Yes Advance Directives: No Reason for Unknown:: Other Mental Health Advance Directive: No Health Care Proxy: No - Admission Admission Date: May 11, 2018 11:45 - Admission Diagnosis (1) Adjustment disorder with mixed disturbance of emotions and conduct Code(s): F43.25 - Adjustment disorder with mixed disturbance of emotions and conduct Brief History: Patient is a 53-year-old -[place] male known to me and to [facility] from multiple prior visits none recently comes in under Cosme act dated 05/09/2018 at 6 :43 PM signed by Yoli Swenson MD that document reviewed stating depression and potential substance ingestion and reports she currently about hurting himself has no plan. Patient was admitted to the medical side seen in consultation by Dr. Robbins. Retained. Patient medically cleared and transferred to the psychiatric unit. At the present time patient walking quietly with me. Prior to this she was quite angry profane quite insulting with attempts and intimidation towards staff and other patients. However he did recognize me from prior care in the calm down he said his of 18 years in his arms on 04/15/18 that he still grieves her. He did relapse and was cocaine addictions related to that and is been using heavily for a few days. He acknowledges his HIV he acknowledges his stated cooperation with his medications and those follow -up with Dr. Vargas in the community. He states she has good support from his parents. At this time he denies suicidality homicidality voice or visions. He just wants to go home to be with his family. He is able contract to do no harm. Patient has a long history of multiple drug abuse. Along with a history of mental health issues. He states he is sleeping somewhat better now his appetite is good. At this time patient does not meet Cosme criteria thus I will lift Cosme act allow patient to be discharged to himself, no Rx by me, he may continue his own home scheduled medications, follow-up with Dr. Vargas his HIV physician, he may consider talk therapy and asking Dr. Vargas for possible referral Tobacco Use In Past 30 Days: Yes How Often Do You Have a Drink Containing Alcohol: 2 to 4 times a month Hospital Course: Please see above note under brief history. Patient no longer meets Cosme criteria will lift Cosme act patient was to be discharged. Patient denies suicidality homicidality voice or visions. Thus patient discharged today with no Rx by me to follow-up with his primary care physician - Discharge Discharge Date: 05/12/18 - Discharge Diagnosis (1) Adjustment disorder with mixed disturbance of emotions and conduct Code(s): F43.25 - Adjustment disorder with mixed disturbance of emotions and conduct Status: Acute (2) Cocaine abuse Code(s): F14.10 - Cocaine abuse, uncomplicated Status: Acute Discharge Disposition: Home - Discharge Instructions Discharge Diet: Regular Diet Activities You Can Perform: Regular- No Restrictions - Discharge Time > 30 minutes Mental Status Examination Appearance: Appropriate Consciousness: Alert Orientation: x4 Motor Activity: Normal gait Speech: Unremarkable, Rapid Language: Adequate Fund of Knowledge: Adequate Attention and Concentration: Adequate Memory: Unremarkable Mood: Sad, Irritable Affect: Other (Slight increased range and intensity) Thought Process & Associations: Goal directed Thought Content: Appropriate Hallucination Type: None Delusion Type: None Suicidal Ideation: No Suicidal Plan: No Suicidal Intention: No Homicidal Ideation: No Homicidal Plan: No Homicidal Intention: No Insight: Fair Judgment: Poor Discharge/Advance Care Plan - Results Vital Signs: Last Vital Signs Temp 98.3 F 05/12/18 05:40 Pulse 66 05/12/18 05:40 Resp 18 05/12/18 05:40 BP 135/71 05/12/18 05:40 Pulse Ox 95 05/12/18 05:40 Lab Results: Laboratory Results Hemoglobin A1c 5.5 % (4.3-6.0) 05/12/18 05:34 Triglycerides 100 mg/dL (42-150) 05/12/18 05:34 Cholesterol 129 mg/dL (120-200) 05/12/18 05:34 LDL Cholesterol, Calc 74 mg/dL (0-99) 05/12/18 05:34 HDL Cholesterol 35.5 mg/dL (40.0-60.0) L 05/12/18 05:34 Summary of Procedures: None done Pending Results: None - Medications Number of antipsychotic medications at discharge: 0 - Discharge Care Plan Goals to Promote Your Health: * To prevent worsening of your condition and complications * To maintain your health at the optimal level Directions to Meet Your Goals: Take your medications as prescribed Follow your dietary instruction Follow activity as directed Keep your appointments as scheduled Take your immunizations and boosters as scheduled If your symptoms worsen call your PCP, if no PCP go to Urgent Care Center or Emergency Room For 01/06 questions related to your inpatient stay or results of tests pending at discharge, please contact Dr. Garland Lopez MD at Smoking is Dangerous to Your Health. Avoid second hand smoking
== END 2018-05-12 14:20 | disposition home or self-care (01) ==
LOC: H270 11:45
PROVIDERS: ADMIT Psychiatry & Neurology Psychiatry; ATTEND Psychiatry & Neurology Psychiatry

== ENCOUNTER 2018-09-10 19:27 | Inpatient (IN) ==
[2018-09-10 21:46] LABS: Baso % (Auto) 0.7 % (0.0-2.0); Eos # (Auto) 0.2 th/mm3 (0.0-0.4); Hematocrit 43.5 % (39.0-51.0); Lymph # (Auto) 2.8 th/mm3 (1.0-4.8); Lymph % (Auto) 42.3 % (9.0-44.0); Mean Corpuscular HGB Conc 34.6 % (32.0-36.0); Mean Corpuscular Hemoglobin 34.8 pg (27.0-34.0); Mean Corpuscular Volume 100.6 fL (80.0-100.0); Mean Platelet Volume 7.8 fL (7.0-11.0); Mono # (Auto) 0.8 th/mm3 (0.0-0.9); Mono % (Auto) 12.2 % (0.0-8.0); Neut # (Auto) 2.8 th/mm3 (1.8-7.7); Neut % (Auto) 41.8 % (16.0-70.0); Platelet Count 184 th/mm3 (150-450); Red Blood Count 4.32 mil/mm3 (4.50-5.90); Red Cell Distribution Width 13.6 % (11.6-17.2); White Blood Count 6.6 th/mm3 (4.0-11.0)
[2018-09-10 22:06] LABS: Amphetamine Screen,Urine Neg (Neg); Barbiturate Screen,Urine Neg (Neg); Cannabinoid Screen,Urine Pos (Neg); Cocaine Screen,Urine Pos (Neg)
[2018-09-10 22:14] LABS: Opiate Screen,Urine Neg (Neg)
[2018-09-10 22:15] LABS: Alanine Aminotransferase 76 U/L (12-78); Alkaline Phosphatase 90 U/L (45-117); Total Protein 7.2 g/dL (6.4-8.2)
[2018-09-10 22:16] LABS: Albumin 3.4 g/dL (3.4-5.0); Anion Gap 7 meq/L (5-15); Aspartate Aminotransferase 48 U/L (15-37); Blood Urea Nitrogen 13 mg/dL (7-18); Calcium 8.4 mg/dL (8.5-10.1); Carbon Dioxide 28.8 meq/L (21.0-32.0); Chloride 107 meq/L (98-107); Glomerular Filtration Rate 51 mL/min (>89); Glucose,Random 126 mg/dL (74-106); Magnesium 2.4 mg/dL (1.5-2.5); Potassium 3.9 meq/L (3.5-5.1); Sodium 143 meq/L (136-145)
--- NOTE | 2018-09-10 22:36 | ED ---
HPI General Chief Complaint: Psychiatric Symptoms Stated Complaint: eval Time Seen by Provider: 09/10/18 21:13 Source: patient Mode of arrival: ambulatory Limitations: no limitations History of Present Illness HPI Narrative: patient states that he has been homeless for the past 5 days. Has been smoking crack for years. YEsterday decided he wants to kill himself and began using heroin. States he is too stressed out and does not want to live. Has not been taking his medications. MD complaint: Reports suicidal ideation and altered mental status Context: Reports recent alcohol abuse (Patient also admits to drinking alcohol daily), recent drug abuse (She has been smoking crack and taking heroin) and significant life stressor (recently became homeless) Associated psychiatric symptoms: Reports depression, suicidal ideation, homicidal ideation, auditory hallucinations, visual hallucinations and delusions Associated symptoms: Denies confusion, headache, shortness of breath, nausea and vomiting If self harm: has plan Details of plan: will overdose on heroin or kill someone Related Data Home Medications Medication Instructions Recorded Confirmed aspirin 81 mg PO DAILY 05/09/18 09/10/18 atorvastatin [Lipitor] 40 mg PO DAILY 05/09/18 09/10/18 yfebmoniqw-icnkyzag-fzjuso ala 1 tab PO DAILY 05/09/18 09/10/18 [Odefsey] entecavir [Baraclude] 1 mg PO DAILY 05/09/18 09/10/18 hydrochlorothiazide 12.5 mg PO DIRECTED 05/09/18 09/10/18 metformin 500 mg PO DAILY 05/09/18 09/10/18 multivitamin,sn-zemb-kueihpid 1 tab PO DAILY 05/10/18 09/10/18 [Multilex-T and M] valacyclovir 1,000 mg PO DAILY 05/10/18 09/10/18 bisacodyl [Dulcolax (bisacodyl)] 5 mg PO DAILY 05/11/18 09/10/18 ergocalciferol (vitamin D2) 50,000 unit PO QWEEK 05/11/18 09/10/18 Allergies Allergy/AdvReac Type Severity Reaction Status Date / Time codeine Allergy Intermediate HIVES, Verified 09/10/18 21:29 RASH AND ITCHING Review of Systems ROS: all other systems reviewed are negative [facility] Medical History Medical History Diabetes (Acute) HIV (human immunodeficiency virus infection) (Acute) Hepatitis (Acute) Herpes genitalis in men (Acute) High cholesterol (Acute) Schizophrenia (Acute) Surgical History Surgical History Hx of appendectomy (Acute) Social History Social History Substance History: Active Abuse and Past History Second Hand Smoke Exposure: No Smoking Status: Current every day smoker Tobacco Type: Cigarettes How Often Do You Have a Drink Containing Alcohol: 4 or more times a week Recent Travel in [place] within the Last 8 Weeks: No Recent Out of Country Travel within the Last 8 Weeks: No Substance Abuse Detail Crack/Cocaine: Substance Use Status: Active Route Used Substance Abuse: Inhalation Heroin: Substance Use Status: Active Route Used Substance Abuse: Inhalation Methamphetamine: Substance Use Status: Active Route Used Substance Abuse: Inhalation Club/Vault [employer] Drugs: Substance Use Type Other:: "DEANGELO" Substance Use Status: Active Route Used Substance Abuse: Inhalation Immunization History Tetanus Immunization: Unsure Exam HENMT Head: normocephalic and atraumatic Nose: no nasal discharge and no epistaxis Mouth: moist mucous membranes Eyes Sclera: normal sclerae Pupils: PERRL Neck Neck: trachea midline and no JVD Resp Effort & Inspection: no use of accessory muscles Auscultation: clear to auscultation bilaterally Cardio Rate: regular rate Rhythm: regular rhythm Heart Sounds: no murmurs GI Inspection: non-distended Palpation: soft, no hepatosplenomegaly and nontender Skin General: dry skin (warm) Neuro General: alert and awake Cranial Nerves: other Speech: speech normal Motor: no movement abnormalities noted Extrem General: normal to inspection, no clubbing, no cyanosis and no edema Psych Mood: congruent mood Affect: normal affect Judgment: judgment good Course Initial Documented Vital Signs Temperature 98.7 F 09/10/18 20:18 Pulse Rate 100 H 09/10/18 20:18 Respiratory Rate 16 09/10/18 20:18 Blood Pressure 134/75 09/10/18 20:18 Pulse Oximetry 96 09/10/18 20:18 Last Documented Vital Signs Temperature 97.8 F 09/13/18 06:11 Pulse Rate 71 09/13/18 06:11 Respiratory Rate 16 09/13/18 06:11 Blood Pressure 147/95 H 09/13/18 06:11 Pulse Oximetry 98 09/13/18 06:11 Medical Decision Making MDM Narrative Medical decision making narrative: Patient states that he recently became homeless. He has been very depressed and smoking crack along with using heroin. Patient states he plans to use heroin to the point of overdosing and killing himself. Patient also states that he has been hallucinating and hearing voices that are telling him to do this Patient will receive toxicology screening and basic labs. Patient is not complaining of any chest pain shortness of breath abdominal pain or any other symptoms. Labs came back normal except positive for THC and cocaine Patient is medically cleared at 2351 Medically cleared 2350 Medical Screen Exam Complete: Yes Emergency Medical Condition: Yes Lab Data Lab results reviewed: Yes I reviewed the patient's lab results. Result diagrams: 09/10/18 21:15 09/12/18 09:50 Lab Results 09/10/18 09/10/18 09/10/18 Range/Units 21:00 21:15 21:15 WBC 6.6 (4.0-11.0) th/mm3 RBC 4.32 L (4.50-5.90) mil/mm3 Hgb 15.0 (13.0-17.0) gm/dL Hct 43.5 (39.0-51.0) % MCV 100.6 H (80.0-100.0) fL MCH 34.8 H (27.0-34.0) pg MCHC 34.6 (32.0-36.0) % RDW 13.6 (11.6-17.2) % Plt Count 184 (150-450) th/mm3 MPV 7.8 (7.0-11.0) fL Neut % (Auto) 41.8 (16.0-70.0) % Lymph % (Auto) 42.3 (9.0-44.0) % Will % (Auto) 12.2 H (0.0-8.0) % Eos % (Auto) 3.0 (0.0-4.0) % Baso % (Auto) 0.7 (0.0-2.0) % Neut # (Auto) 2.8 (1.8-7.7) th/mm3 Lymph # (Auto) 2.8 (1.0-4.8) th/mm3 Will # (Auto) 0.8 (0.0-0.9) th/mm3 Eos # (Auto) 0.2 (0.0-0.4) th/mm3 Baso # (Auto) 0.0 (0.0-0.2) th/mm3 WBC Differential . Differential Comment Auto diff final Sodium 143 (136-145) meq/L Potassium 3.9 (3.5-5.1) meq/L Chloride 107 (98-107) meq/L Carbon Dioxide 28.8 (21.0-32.0) meq/L Anion Gap 7 (5-15) meq/L BUN 13 (7-18) mg/dL Creatinine 1.72 H (0.60-1.30) mg/dL Estimated GFR 51 L (>89) mL/min POC Glucose (68-110) mg/dl Random Glucose 126 H (74-106) mg/dL Hemoglobin A1c (4.3-6.0) % Calcium 8.4 L (8.5-10.1) mg/dL Magnesium 2.4 (1.5-2.5) mg/dL Total Bilirubin 0.4 (0.2-1.0) mg/dL AST 48 H (15-37) U/L ALT 76 (12-78) U/L Alkaline Phosphatase 90 (45-117) U/L Total Creatine Kinase (39-308) U/L CK-MB (CK-2) (0.5-3.6) ng/mL CK-MB (CK-2) % (0.0-4.0) % Total Protein 7.2 (6.4-8.2) g/dL Albumin 3.4 (3.4-5.0) g/dL Triglycerides (42-150) mg/dL Cholesterol (120-200) mg/dL LDL Cholesterol, Calc (0-99) mg/dL HDL Cholesterol (40.0-60.0) mg/dL Cholesterol/HDL Ratio Ratio Vitamin B12 (193-986) pg/mL Folate (3.1-17.5) ng/mL TSH 1.820 (0.358-3.740) uIU/mL Urine Opiates Screen Neg (Neg) Ur Barbiturates Screen Neg (Neg) Ur Amphetamines Screen Neg (Neg) U Benzodiazepines Scrn Neg (Neg) Urine Cocaine Screen Pos H (Neg) U Cannabinoids Screen Pos H (Neg) Serum Alcohol Less than 3 (0-5) mg/dL 09/11/18 09/11/18 09/11/18 Range/Units 11:36 17:45 21:00 WBC (4.0-11.0) th/mm3 RBC (4.50-5.90) mil/mm3 Hgb (13.0-17.0) gm/dL Hct (39.0-51.0) % MCV (80.0-100.0) fL MCH (27.0-34.0) pg MCHC (32.0-36.0) % RDW (11.6-17.2) % Plt Count (150-450) th/mm3 MPV (7.0-11.0) fL Neut % (Auto) (16.0-70.0) % Lymph % (Auto) (9.0-44.0) % Will % (Auto) (0.0-8.0) % Eos % (Auto) (0.0-4.0) % Baso % (Auto) (0.0-2.0) % Neut # (Auto) (1.8-7.7) th/mm3 Lymph # (Auto) (1.0-4.8) th/mm3 Will # (Auto) (0.0-0.9) th/mm3 Eos # (Auto) (0.0-0.4) th/mm3 Baso # (Auto) (0.0-0.2) th/mm3 WBC Differential Differential Comment Sodium (136-145) meq/L Potassium (3.5-5.1) meq/L Chloride (98-107) meq/L Carbon Dioxide (21.0-32.0) meq/L Anion Gap (5-15) meq/L BUN (7-18) mg/dL Creatinine (0.60-1.30) mg/dL Estimated GFR (>89) mL/min POC Glucose 212 H 93 (68-110) mg/dl Random Glucose (74-106) mg/dL Hemoglobin A1c (4.3-6.0) % Calcium (8.5-10.1) mg/dL Magnesium (1.5-2.5) mg/dL Total Bilirubin (0.2-1.0) mg/dL AST (15-37) U/L ALT (12-78) U/L Alkaline Phosphatase (45-117) U/L Total Creatine Kinase 344 H (39-308) U/L CK-MB (CK-2) 1.6 (0.5-3.6) ng/mL CK-MB (CK-2) % 0.5 (0.0-4.0) % Total Protein (6.4-8.2) g/dL Albumin (3.4-5.0) g/dL Triglycerides (42-150) mg/dL Cholesterol (120-200) mg/dL LDL Cholesterol, Calc (0-99) mg/dL HDL Cholesterol (40.0-60.0) mg/dL Cholesterol/HDL Ratio Ratio Vitamin B12 855 (193-986) pg/mL Folate 7.7 (3.1-17.5) ng/mL TSH (0.358-3.740) uIU/mL Urine Opiates Screen (Neg) Ur Barbiturates Screen (Neg) Ur Amphetamines Screen (Neg) U Benzodiazepines Scrn (Neg) Urine Cocaine Screen (Neg) U Cannabinoids Screen (Neg) Serum Alcohol (0-5) mg/dL 09/12/18 09/12/18 09/12/18 Range/Units 06:49 07:41 09:50 WBC (4.0-11.0) th/mm3 RBC (4.50-5.90) mil/mm3 Hgb (13.0-17.0) gm/dL Hct (39.0-51.0) % MCV (80.0-100.0) fL MCH (27.0-34.0) pg MCHC (32.0-36.0) % RDW (11.6-17.2) % Plt Count (150-450) th/mm3 MPV (7.0-11.0) fL Neut % (Auto) (16.0-70.0) % Lymph % (Auto) (9.0-44.0) % Will % (Auto) (0.0-8.0) % Eos % (Auto) (0.0-4.0) % Baso % (Auto) (0.0-2.0) % Neut # (Auto) (1.8-7.7) th/mm3 Lymph # (Auto) (1.0-4.8) th/mm3 Will # (Auto) (0.0-0.9) th/mm3 Eos # (Auto) (0.0-0.4) th/mm3 Baso # (Auto) (0.0-0.2) th/mm3 WBC Differential Differential Comment Sodium 144 (136-145) meq/L Potassium 4.1 (3.5-5.1) meq/L Chloride 109 H (98-107) meq/L Carbon Dioxide 28.9 (21.0-32.0) meq/L Anion Gap 6 (5-15) meq/L BUN 15 (7-18) mg/dL Creatinine 1.41 H (0.60-1.30) mg/dL Estimated GFR 64 L (>89) mL/min POC Glucose 154 H 107 (68-110) mg/dl Random Glucose 109 H (74-106) mg/dL Hemoglobin A1c (4.3-6.0) % Calcium 8.8 (8.5-10.1) mg/dL Magnesium (1.5-2.5) mg/dL Total Bilirubin (0.2-1.0) mg/dL AST (15-37) U/L ALT (12-78) U/L Alkaline Phosphatase (45-117) U/L Total Creatine Kinase (39-308) U/L CK-MB (CK-2) (0.5-3.6) ng/mL CK-MB (CK-2) % (0.0-4.0) % Total Protein (6.4-8.2) g/dL Albumin (3.4-5.0) g/dL Triglycerides 138 (42-150) mg/dL Cholesterol 128 (120-200) mg/dL LDL Cholesterol, Calc 58 (0-99) mg/dL HDL Cholesterol 42.8 (40.0-60.0) mg/dL Cholesterol/HDL Ratio 2.99 Ratio Vitamin B12 (193-986) pg/mL Folate (3.1-17.5) ng/mL TSH (0.358-3.740) uIU/mL Urine Opiates Screen (Neg) Ur Barbiturates Screen (Neg) Ur Amphetamines Screen (Neg) U Benzodiazepines Scrn (Neg) Urine Cocaine Screen (Neg) U Cannabinoids Screen (Neg) Serum Alcohol (0-5) mg/dL 09/12/18 09/12/18 09/12/18 Range/Units 09:50 11:16 21:01 WBC (4.0-11.0) th/mm3 RBC (4.50-5.90) mil/mm3 Hgb (13.0-17.0) gm/dL Hct (39.0-51.0) % MCV (80.0-100.0) fL MCH (27.0-34.0) pg MCHC (32.0-36.0) % RDW (11.6-17.2) % Plt Count (150-450) th/mm3 MPV (7.0-11.0) fL Neut % (Auto) (16.0-70.0) % Lymph % (Auto) (9.0-44.0) % Will % (Auto) (0.0-8.0) % Eos % (Auto) (0.0-4.0) % Baso % (Auto) (0.0-2.0) % Neut # (Auto) (1.8-7.7) th/mm3 Lymph # (Auto) (1.0-4.8) th/mm3 Will # (Auto) (0.0-0.9) th/mm3 Eos # (Auto) (0.0-0.4) th/mm3 Baso # (Auto) (0.0-0.2) th/mm3 WBC Differential Differential Comment Sodium (136-145) meq/L Potassium (3.5-5.1) meq/L Chloride (98-107) meq/L Carbon Dioxide (21.0-32.0) meq/L Anion Gap (5-15) meq/L BUN (7-18) mg/dL Creatinine (0.60-1.30) mg/dL Estimated GFR (>89) mL/min POC Glucose 98 117 H (68-110) mg/dl Random Glucose (74-106) mg/dL Hemoglobin A1c 5.6 (4.3-6.0) % Calcium (8.5-10.1) mg/dL Magnesium (1.5-2.5) mg/dL Total Bilirubin (0.2-1.0) mg/dL AST (15-37) U/L ALT (12-78) U/L Alkaline Phosphatase (45-117) U/L Total Creatine Kinase (39-308) U/L CK-MB (CK-2) (0.5-3.6) ng/mL CK-MB (CK-2) % (0.0-4.0) % Total Protein (6.4-8.2) g/dL Albumin (3.4-5.0) g/dL Triglycerides (42-150) mg/dL Cholesterol (120-200) mg/dL LDL Cholesterol, Calc (0-99) mg/dL HDL Cholesterol (40.0-60.0) mg/dL Cholesterol/HDL Ratio Ratio Vitamin B12 (193-986) pg/mL Folate (3.1-17.5) ng/mL TSH (0.358-3.740) uIU/mL Urine Opiates Screen (Neg) Ur Barbiturates Screen (Neg) Ur Amphetamines Screen (Neg) U Benzodiazepines Scrn (Neg) Urine Cocaine Screen (Neg) U Cannabinoids Screen (Neg) Serum Alcohol (0-5) mg/dL Imaging Data Radiologist's impression: Chest X-Ray 09/11/18 00:00 CONCLUSION: No acute cardiopulmonary disease identified. Discharge Plan Discharge Disposition Patient Disposition: 30 Still Patient Discharge Condition Condition: Stable Discharge Details Diagnosis: Drug abuse, Suicidal ideation Physicians Team ED Provider: Melisa Pinto ED Midlevel Provider: Daphney Snow Primary Care Provider: Dieter Vargas Attending Provider: Garland Lopez Other Providers: Jovi Lawrence Status ED Status: Left Department Discharge Information Discharge Date/Time: 09/11/18 09:58
[2018-09-11] MEDS ORDERED: LORazepam 1 MG Tablet PO PRN (09:00)
[2018-09-11] MEDS ORDERED: Aluminum/Magnesium/Simethacone Susp 30 ML UDC PO PRN (09:00)
[2018-09-11] MEDS ORDERED: Haloperidol Inj 5 MG/ML Ampul IV.PUSH PRN (09:00)
[2018-09-11] MEDS ORDERED: Bisacodyl 10 MG Supp RECTAL PRN (09:00)
--- NOTE | 2018-09-11 11:29 | P.HPPSY ---
Provisional Diagnosis Admission Date: September 11, 2018 08:57 Napoleon I.: Bipolar depression, polysubstance dependence including crack cocaine, heroine, cannabis, alcohol Napoleon II.: Antisocial personality disorder Napoleon III.: HIV, hepatitis B, diabetes Competence Certification of Person's Competence To Provide Express and Informed Consent I have personally examined Willi Morrison, a person being served at [facility] on, September 11, 2018 1111. Express and informed consent means consent voluntarily given in writing, by a competent person, after sufficient explanation and disclosure of the subject matter involved to enable the person to make a knowing and willful decision without any element of force, fraud, deceit, duress, or other form of constraint or coercion. This person is 18 years of age or older, is not now known to be incompetent to consent to treatment with a guardian advocate, and does not have a health care surrogate or proxy currently making medical treatment decisions. I have found this person to be one of the following: [x] Competent to provide express and informed consent, as defined above, for voluntary admission to this facility and is competent to provide express and informed consent for treatment. He/she has the consistent capacity to make well reasoned, willful, and knowing decisions concerning his or her medical or mental health treatment. The person fully and consistently understands the purpose of the admission for examination/placement and is fully capable of personally exercising all rights assured under [place] [] Incompetent to provide express and informed consent to voluntary admission, and this is incompetent to provide express and informed consent to treatment. The person must be transferred to involuntary status and a petition for a guardian advocate filed with the Circuit Court. [] Refusing to provide express and informed consent to voluntary admission but is competent to provide express and informed consent for treatment. The person must be discharged or transferred to involuntary status. Form shall be completed within 24 hours of a person's arrival at the receiving facility and filed in the clinical record of each person: 1. Admitted on a voluntary basis 2. Permitted to provide express and informed consent to his/her own treatment 3. Allowed to transfer from involuntary to voluntary status 4. Prior to permitting a person to consent to his or her own treatment after having been previously found incompetent to consent to treatment. History of Present Illness Capacity: Has capacity History of Present Illness: The patient is a 53-year-old -[place] man, homeless, unemployed, single , supported by [facility], with a psychiatric history of bipolar disorder, depression, antisocial personality disorder polysubstance dependence including crack cocaine , heroine, alcohol and marijuana, multiple psychiatric admissions, 3 previous suicide attempts, he was admitted here in [place] at the beginning of 2017, no compliant medications, a significant medical history of HIV, hepatitis B, diabetes, who came to the hospital voluntarily requesting a psychiatric evaluation stating that he has been homeless for the past 5 days, he is depressed and he wants to commit suicide. Has been smoking crack for years. Yesterday decided he wants to kill himself and began using heroin. States he is too stressed out and does not want to live. Has not been taking his medications he has been very depressed since his in May 2018. He also reports that he has been having increased auditory hallucinations of voices telling him to kill himself and kill people. He says that he definitely does not want to go to detention, that he wants to comply with his psychiatric medications and medical medications, but is very difficult for him to function using so many drugs and be so depressed. During the evaluation the patient is irritable, at times verbally hostile, but usually redirectable. Was able to contract for safety in the ER. PPHx: Bipolar disorder, depression, multiple psychiatric hospitalizations, 3 previous suicide attempts, he is noted psychotropics, was admitted in [place] at the beginning of 2017 PMHx: HIV, hepatitis C, diabetes Sustance Hx: Patient reports daily use of crack cocaine, cannabis, occasional use of alcohol, Clarissa and heroine Family Hx: Patient has an aunt with bipolar Social Hx: He was born and raised in [place], he is homeless, , unemployed, supported by [facility] - Inpatient Certification I certify that the inpatient services were ordered in accordance with Medicare regulations governing the order. This includes certification that hospital inpatient services are reasonable and necessary and in the case of services not specified as inpatient-only under 42 CFR 419.22(n), that they are appropriately provided as inpatient services in accordance to with the 2-midnight benchmark under 43 CFR 412.3(e) I certify that inpatient psychiatric hospital services are medically necessary. Evaluation and treatment and/or diagnostic testing are expected to improve the patient's condition. The patient needs on a daily basis, active treatment furnished directly by or requiring the supervision of inpatient psychiatric facility personnel. Estimated Total Length of Stay (Days): 7 Plans for Post Hospital Care: Home Review of Systems All other systems reviewed negative except as stated in HPI Psychiatric: Reports anxiety, Reports irritability, Reports mood swings, Reports panic attacks, Reports paranoia, Reports sensing things others do not sense, Reports thoughts of hurting/killing others, Reports thoughts of hurting/ killing yourself PMFSH - History History Provided By: Patient - Medical History Medical History: Medical History (Last Reviewed 09/10/18 @ 22:32 by Daphney Snow) Diabetes HIV (human immunodeficiency virus infection) Hepatitis Herpes genitalis in men High cholesterol Schizophrenia - Surgical History Surgical History: Surgical History (Last Reviewed 09/10/18 @ 22:32 by Daphney Snow) Hx of appendectomy - Tobacco History Second Hand Smoke Exposure: No Tobacco Use In Past 30 Days: Yes Smoking Status: Current every day smoker Tobacco Type: Cigarettes - Alcohol History How Often Do You Have a Drink Containing Alcohol: 4 or more times a week - Substance Use History Substance History: Active Abuse, Past History - Substance Use Type Crack/Cocaine Status: Active Route Used: Inhalation Heroin Status: Active Route Used: Inhalation Methamphetamine Status: Active Route Used: Inhalation Club/Revenue Enforcement Agent Drugs Type: "CLARISSA" Status: Active Route Used: Inhalation - Travel History Recent Travel in the USA Within the Last 8 Weeks: No Recent Travel Out of the Country Within the Last 8 Weeks: No - Immunization History Tetanus Immunization: Unsure Medications and Allergies Active Medications: Active Medications Al Hydrox/Mg Hydrox/Simethicone (Mag-Al Plus Susp Liq) 30 ml PO Q6H PRN PRN Reason: DYSPEPSIA Al Hydroxide/Mg Hydroxide (Milk Of Magnesia Liq) 30 ml PO Q12H PRN PRN Reason: Mild Constipation Bisacodyl (Dulcolax Supp) 10 mg RECTAL DAILY PRN PRN Reason: SEVERE CONSITIPATION Bupropion HCl (Wellbutrin) 75 mg PO BID ADEBAYO Flumazenil (Romazecon Inj) 0.2 mg IV.PUSH Q1M PRN PRN Reason: OVERSEDATION Haloperidol Lactate (Haldol Inj) 1 mg IV.PUSH Q15M PRN PRN Reason: for severe agitation Lactulose (Lactulose Liq) 30 ml PO DAILY PRN PRN Reason: SEVERE CONSITIPATION Lorazepam (Ativan) 1 mg PO Q4H PRN PRN Reason: for CIWA 8-10 Lorazepam (Ativan) 2 mg PO Q2H PRN PRN Reason: for CIWA 11-14 Lorazepam (Ativan Inj) 2 mg IV.PUSH Q2H PRN PRN Reason: for CIWA 11-14 Lorazepam (Ativan Inj) 2 mg IV.PUSH Q1H PRN PRN Reason: for CIWA 15-20 Lorazepam (Ativan Inj) 2 mg IV.PUSH Q15M PRN PRN Reason: for CIWA > 20 Lorazepam (Ativan Inj) 1 mg IV.PUSH Q4H PRN PRN Reason: for CIWA 8-10 Senna/Docusate Sodium (Bhavana-Colace) 1 tab PO BID ADEBAYO Sennosides (Senokot) 17.2 mg PO Q12H PRN PRN Reason: Moderate Constipation Allergies Allergy/AdvReac Type Severity Reaction Status Date / Time codeine Allergy Intermediate HIVES, Verified 09/10/18 21:29 RASH AND ITCHING Home Medications Medication Instructions Recorded Confirmed Type aspirin 81 mg PO DAILY 05/09/18 09/10/18 History atorvastatin [Lipitor] 40 mg PO DAILY 05/09/18 09/10/18 History hbkfkfgdtf-semxalbw-vkfhqv ala 1 tab PO DAILY 05/09/18 09/10/18 History [Odefsey] entecavir [Baraclude] 1 mg PO DAILY 05/09/18 09/10/18 History hydrochlorothiazide 12.5 mg PO DIRECTED 05/09/18 09/10/18 History metformin 500 mg PO DAILY 05/09/18 09/10/18 History multivitamin,eu-gxdc-kcantehv 1 tab PO DAILY 05/10/18 09/10/18 History [Multilex-T and M] valacyclovir 1,000 mg PO DAILY 05/10/18 09/10/18 History bisacodyl [Dulcolax (bisacodyl)] 5 mg PO DAILY 05/11/18 09/10/18 History ergocalciferol (vitamin D2) 50,000 unit PO QWEEK 05/11/18 09/10/18 History Results - Labs CBC & Chem 7: 09/10/18 21:15 09/10/18 21:15 Labs: Laboratory Results - last 24 hr 09/10/18 09/10/18 09/10/18 21:00 21:15 21:15 WBC 6.6 RBC 4.32 L Hgb 15.0 Hct 43.5 MCV 100.6 H MCH 34.8 H MCHC 34.6 RDW 13.6 Plt Count 184 MPV 7.8 Neut % (Auto) 41.8 Lymph % (Auto) 42.3 Bollinger % (Auto) 12.2 H Eos % (Auto) 3.0 Baso % (Auto) 0.7 Neut # (Auto) 2.8 Lymph # (Auto) 2.8 Bollinger # (Auto) 0.8 Eos # (Auto) 0.2 Baso # (Auto) 0.0 WBC Differential . Differential Comment Auto diff final Sodium 143 Potassium 3.9 Chloride 107 Carbon Dioxide 28.8 Anion Gap 7 BUN 13 Creatinine 1.72 H Estimated GFR 51 L Random Glucose 126 H Calcium 8.4 L Magnesium 2.4 Total Bilirubin 0.4 AST 48 H ALT 76 Alkaline Phosphatase 90 Total Protein 7.2 Albumin 3.4 TSH 1.820 Urine Opiates Screen Neg Ur Barbiturates Screen Neg Ur Amphetamines Screen Neg U Benzodiazepines Scrn Neg Urine Cocaine Screen Pos H U Cannabinoids Screen Pos H Serum Alcohol Less than 3 Exam Vital signs: Vital Signs 09/10/18 20:18 09/11/18 06:50 Temperature 98.7 F Pulse Rate 100 H 75 Respiratory Rate 16 16 Blood Pressure 134/75 116/66 Pulse Oximetry 96 100 Intake & Output 09/10/18 09/11/18 09/11/18 18:59 06:59 18:59 Weight 99.4 kg Narrative: No withdrawal, no EPS, NO psychomotor agitation and retardation, no stiffness - Constitutional mild distress - Routine HEENT Exam Head: Present: normocephalic, atraumatic, scalp tenderness Eye: Present: EOMI, PERRL ENT: Present: mucous membranes moist Mental Status Examination Appearance: Appropriate Consciousness: Alert Orientation: x4 Motor Activity: Normal gait Speech: Unremarkable Language: Adequate Fund of Knowledge: Adequate Attention and Concentration: Adequate Memory: Unremarkable Mood: Angry, Oppositional Affect: Irritable Thought Process & Associations: Intact Thought Content: Appropriate Hallucination Type: Auditory Delusion Type: None Suicidal Ideation: Yes Suicidal Plan: No Suicidal Intention: No Homicidal Ideation: Yes Homicidal Plan: No Homicidal Intention: No Insight: Poor Judgment: Poor Assessment and Plan - Assessment (1) Bipolar depression Code(s): F31.30 - Bipolar disorder, current episode depressed, mild or moderate severity, unspecified Status: Acute - Plan Plan: On psychiatric evaluation today the patient presents irritable, oppositional, verbally hostile, stating that he just want to kill himself and also kill other people. The patient reports that he has been hearing voices telling him to kill himself and kill others. He has been using multiple drugs including cocaine, cannabis, heroine and alcohol lately. The patient has stopped using his HIV medication, diabetic medications "because I just want to ". The patient has a psychiatric history of bipolar disorder, antisocial personality disorder, multiple psychiatric hospitalizations, suicide attempts, noncompliant with medications. At the moment of this evaluation the patient has increased risk of danger to self and others given his level of psychosis and mood symptoms , he will be admitted in 2700 for stabilization and safety. I will start Wellbutrin 75 mg twice daily for depression, Seroquel 50 mg twice daily for psychosis. He will be also a started in CIWA protocol. It seems to be the current presentation could be related with a bipolar decompensation, but conscious simulation and personality pathology could also be part of the etiology. Support, motivational psych education provided. Transfer to 2700 unit. Justification for Continued Inpatient Stay: Admission indicated
[2018-09-11] MEDS: buPROPion 75 MG Tablet PO SCH ×2 (12:15→20:25)
[2018-09-11] MEDS: Senna/Docusate Sodium 8.6/50 MG Tablet PO SCH ×2 (12:15→20:25)
[2018-09-11 12:35] LABS: Folate 7.7 ng/mL (3.1-17.5)
[2018-09-11 12:47] LABS: CKMB Percent 0.5 % (0.0-4.0); Creatine Kinase MB 1.6 ng/mL (0.5-3.6)
--- NOTE | 2018-09-11 15:41 | P.CON ---
History of Present Illness Service: [facility]/HEP Consult date: 09/11/18 Requesting Physician: Romero Ga Reason for Consult: HIV, Hep B, DM on no Tx Primary Care Provider: Dieter Vargas MD Chief Complaint: "I have been on the street" History of Present Illness: Mr. Morrison is a 53-year-old -[place] male with past medical history significant for hyperlipidemia, diabetes mellitus, HIV, hepatitis B, tobacco abuse, alcohol abuse, polysubstance abuse and bipolar disorder who presented to the emergency department on 09/10 on a voluntary basis after being homeless for 5 days prior. Patient had apparently become depressed and began using heroin with thoughts of wanting to kill himself. Patient has now been admitted to inpatient psychiatry unit, [facility] admitted to assist with medical management regarding HIV, hep B, and diabetes mellitus. Patient is seen and examined in his room with staff member close by. He reports that he has been homeless since 07 September and states that he has also been depressed as his recently passed. He states that while on the streets he has been exposed to drugs including crack, cocaine, heroine as well as Clarissa. Patient reports that he follows up with Dr. Vargas for his HIV but has not been taking his medication since he has been homeless. Regarding his diabetes he is on metformin and denies any insulin use. He denies any fevers, chills, nausea, vomiting, diarrhea, shortness of breath, lightheadedness, dizziness or chest pain. Patient does endorse night sweats as well as an intermittent nonproductive cough. He states that he would like to be admitted to a longterm and understands that he needs to be clean off of drugs for this. Nurse does not voice any acute concerns or complaints at the moment. Review of Systems All other systems reviewed negative except as stated in HPI PMFSH - History History Provided By: Patient - Medical History Medical History: Medical History (Last Reviewed 09/11/18 @ 15:28 by Shiv Montilla) Diabetes HIV (human immunodeficiency virus infection) Hepatitis Herpes genitalis in men High cholesterol Schizophrenia - Surgical History Surgical History: Surgical History (Last Reviewed 09/11/18 @ 15:28 by Shiv Montilla) Hx of appendectomy - Social History I have reviewed the patient's Social History: Yes - Tobacco History Second Hand Smoke Exposure: No Tobacco Use In Past 30 Days: Yes Smoking Status: Current every day smoker Tobacco Type: Cigarettes - Alcohol History How Often Do You Have a Drink Containing Alcohol: 4 or more times a week - Substance Use History Substance History: Active Abuse, Past History - Substance Use Type Crack/Cocaine Status: Active Route Used: Inhalation Reason for Use: Get High Heroin Status: Active Route Used: Inhalation Methamphetamine Status: Active Route Used: Inhalation Club/High Reach Operator Drugs Type: "CLARISSA" Status: Active Route Used: Inhalation - Travel History Recent Travel in the [place] Within the Last 8 Weeks: No Recent Travel Out of the Country Within the Last 8 Weeks: No - Immunization History Tetanus Immunization: Unsure Medications and Allergies Active Medications: Active Medications Al Hydrox/Mg Hydrox/Simethicone (Mag-Al Plus Susp Liq) 30 ml PO Q6H PRN PRN Reason: DYSPEPSIA Al Hydroxide/Mg Hydroxide (Milk Of Magnesia Liq) 30 ml PO Q12H PRN PRN Reason: Mild Constipation Bisacodyl (Dulcolax Supp) 10 mg RECTAL DAILY PRN PRN Reason: SEVERE CONSITIPATION Bupropion HCl (Wellbutrin) 75 mg PO BID ADEBAYO Last Admin: 09/11/18 12:15 Dose: 75 mg Flumazenil (Romazecon Inj) 0.2 mg IV.PUSH Q1M PRN PRN Reason: OVERSEDATION Haloperidol Lactate (Haldol Inj) 1 mg IV.PUSH Q15M PRN PRN Reason: for severe agitation Lactulose (Lactulose Liq) 30 ml PO DAILY PRN PRN Reason: SEVERE CONSITIPATION Lorazepam (Ativan) 1 mg PO Q4H PRN PRN Reason: for CIWA 8-10 Lorazepam (Ativan) 2 mg PO Q2H PRN PRN Reason: for CIWA 11-14 Lorazepam (Ativan Inj) 2 mg IV.PUSH Q2H PRN PRN Reason: for CIWA 11-14 Lorazepam (Ativan Inj) 2 mg IV.PUSH Q1H PRN PRN Reason: for CIWA 15-20 Lorazepam (Ativan Inj) 2 mg IV.PUSH Q15M PRN PRN Reason: for CIWA > 20 Lorazepam (Ativan Inj) 1 mg IV.PUSH Q4H PRN PRN Reason: for CIWA 8-10 Senna/Docusate Sodium (Bhavana-Colace) 1 tab PO BID ADEBAYO Last Admin: 09/11/18 12:15 Dose: 1 tab Sennosides (Senokot) 17.2 mg PO Q12H PRN PRN Reason: Moderate Constipation Allergies Allergy/AdvReac Type Severity Reaction Status Date / Time codeine Allergy Intermediate HIVES, Verified 09/10/18 21:29 RASH AND ITCHING Home Medications Medication Instructions Recorded Confirmed Type aspirin 81 mg PO DAILY 05/09/18 09/10/18 History atorvastatin [Lipitor] 40 mg PO DAILY 05/09/18 09/10/18 History wtromjjrqm-luytayfe-kuhxzr ala 1 tab PO DAILY 05/09/18 09/10/18 History [Odefsey] entecavir [Baraclude] 1 mg PO DAILY 05/09/18 09/10/18 History hydrochlorothiazide 12.5 mg PO DIRECTED 05/09/18 09/10/18 History metformin 500 mg PO DAILY 05/09/18 09/10/18 History multivitamin,bx-rkan-akcafoen 1 tab PO DAILY 05/10/18 09/10/18 History [Multilex-T and M] valacyclovir 1,000 mg PO DAILY 05/10/18 09/10/18 History bisacodyl [Dulcolax (bisacodyl)] 5 mg PO DAILY 05/11/18 09/10/18 History ergocalciferol (vitamin D2) 50,000 unit PO QWEEK 05/11/18 09/10/18 History Physical Exam Vital signs: Vital Signs 09/10/18 20:18 09/11/18 06:50 Temperature 98.7 F Pulse Rate 100 H 75 Respiratory Rate 16 16 Blood Pressure 134/75 116/66 Pulse Oximetry 96 100 Intake & Output 09/10/18 09/11/18 09/11/18 18:59 06:59 18:59 Weight 99.4 kg 100.2 kg Other: Weight On Admission 100.2 kg Narrative: GENERAL: Well-developed, well-nourished -[place] male in no acute distress. SKIN: Warm and dry. HEAD: Atraumatic. Normocephalic. EYES: Pupils equal and round. No scleral icterus. No injection or drainage. ENT: No nasal bleeding or discharge. Mucous membranes pink and moist. NECK: Trachea midline. No JVD. CARDIOVASCULAR: Regular rate and rhythm. RESPIRATORY: No accessory muscle use. Diminished breath sounds throughout with no noted rhonchi or crackles. GASTROINTESTINAL: Abdomen soft, non-tender, nondistended. + Bowel sounds MUSCULOSKELETAL: Extremities without clubbing, cyanosis, or edema. No obvious deformities. NEUROLOGICAL: Awake, alert, oriented x3. No obvious cranial nerve deficits. Motor grossly within normal limits. Five out of 5 muscle strength in the arms and legs. Normal speech. PSYCHIATRIC: Appears depressed. Assessment and Plan - Plan Mr. Morrison is a 53-year-old -[place] male with past medical history significant for hyperlipidemia, diabetes mellitus, HIV, hepatitis B, tobacco abuse, alcohol abuse, polysubstance abuse and bipolar disorder who presented to the emergency department on 09/10 on a voluntary basis after being homeless for 5 days prior. Patient had apparently become depressed and began using heroin with thoughts of wanting to kill himself. Patient has now been admitted to inpatient psychiatry unit, [facility] admitted to assist with medical management regarding HIV, hep B, and diabetes mellitus. Bipolar disorder -Treatment plan per psychiatry -Patient has been started on Wellbutrin and Seroquel HIV Hepatitis B -Patient will need to follow-up with GI as outpatient treatment of his hepatitis B. -Liver enzymes at the moment are stable. -Patient will also need to follow-up with his regular physician Dr. Vargas for ongoing HIV medications. -He does not have any means of having family or friends bring in his regular prescription from the outside. Diabetes mellitus Hemoglobin A1c on 05/12/18 was 5.5 -We will recheck hemoglobin A1c, hold off on metformin secondary to mildly elevated creatinine -Accu-Cheks with insulin sliding scale for glycemic control Acute on chronic renal insufficiency -Since April patient's creatinine has been around 1.3 -Mildly elevated total CK, encourage oral hydration -Polysubstance drug abuse also possibly contributing to renal insufficiency, discussed with patient. -Avoid nephrotoxins, continue monitoring renal function Cough/night sweats -Check baseline chest x-ray, patient afebrile with no leukocytosis. -Cough likely due to smoking and other drug use. Microcytosis -B12 and folic acid stable -No anemia at the moment, monitor Polysubstance drug abuse Alcohol abuse -CIWA -Cessation discussed and encouraged. DVT prophylaxisambulation Thank you Dr. Ga for this consultation, will continue to follow along. Discussed Condition With: Patient and RN
[2018-09-11] MEDS ORDERED: Dextrose 50% in Water 50 ML Vial IV.PUSH PRN (15:42)
--- NOTE | 2018-09-11 15:51 | XR ---
EXAM DATE: 09/11/2018 3:47 PM EDT AGE/SEX: 53 years / Male INDICATIONS: Cough. CLINICAL DATA: This is the patient's initial encounter. Patient reports that signs and symptoms have been present for 2 days and indicates a pain score of 0/10. MEDICAL/SURGICAL HISTORY: . HIV. Diabetes mellitus type 2. Hepatitis B. Appendectomy. COMPARISON: [facility] [place], CHEST 1V SINGLE AP, 07/30/2018. . FINDINGS: Single AP view the chest. The lungs are clear. Cardiomediastinal silhouette within normal limits. No evidence of pleural effusion or pneumothorax. CONCLUSION: No acute cardiopulmonary disease identified. Electronically signed by: Junior Lyons MD 09/11/2018 3:49 PM EDT
[2018-09-11] MEDS: Insulin NovoLIN Regular Correctional Sugar Inj SQ SCH ×2 (17:51→21:31)
[2018-09-12] MEDS: Insulin NovoLIN Regular Correctional Sugar Inj SQ SCH ×2 (07:49→11:49)
[2018-09-12] MEDS: Senna/Docusate Sodium 8.6/50 MG Tablet PO SCH ×2 (08:21→20:05)
[2018-09-12] MEDS: Multivitamin/Minerals Therapeutic Tablet PO SCH (08:21)
[2018-09-12] MEDS: buPROPion 75 MG Tablet PO SCH ×2 (08:21→20:05)
[2018-09-12] MEDS: valACYclovir 500 MG Tab PO SCH (09:05)
[2018-09-12 11:06] LABS: Calcium 8.8 mg/dL (8.5-10.1); Carbon Dioxide 28.9 meq/L (21.0-32.0); Potassium 4.1 meq/L (3.5-5.1)
[2018-09-12 11:10] LABS: Chol/HDL Ratio 2.99 Ratio; HDL Cholesterol 42.8 mg/dL (40.0-60.0)
[2018-09-12 12:57] LABS: Hemoglobin A1c 5.6 % (4.3-6.0)
--- NOTE | 2018-09-12 14:28 | P.PNPSY ---
Subjective Remarks: Reviewed electronic medical records and discussed case with staff. Follow-up was conducted in the day room. Patient is very sad. States his of 22 years in November from kidney failure. He states that is currently homeless and has no children. He states that he has a number of medical problems and he is having difficulty managing his care. Discussed with patient concerns with his illicit drug use and impact on his health. States he is sleeping and eating well. Denies SI/HI. Patient has been cooperative. No behavioral concerns. Sad with flat and blunted affect. Review of Systems All other systems reviewed negative except as stated in HPI Mental Status Examination Appearance: Appropriate Consciousness: Alert Orientation: x4 Motor Activity: Normal gait Speech: Unremarkable Language: Adequate Fund of Knowledge: Adequate Attention and Concentration: Adequate Memory: Unremarkable Mood: Angry, Oppositional Affect: Irritable Thought Process & Associations: Intact Thought Content: Appropriate Hallucination Type: Auditory Delusion Type: None Suicidal Ideation: No Suicidal Plan: No Suicidal Intention: No Homicidal Ideation: No Homicidal Plan: No Homicidal Intention: No Insight: Poor Judgment: Poor Assessment and Plan - Assessment (1) Depression Code(s): F32.9 - Major depressive disorder, single episode, unspecified Status : Acute - Plan Plan: Continue current treatment plan. Justification for Continued Inpatient Stay: Moving patient to a less restrictive level of care may result in his decompensation.
--- NOTE | 2018-09-12 15:12 | P.PN ---
Subjective Interval history: Follow-up visit for HIV, chronic hep B and cough. Patient is seen and examined in the day room and's. Spoke with nurse who reports no acute events overnight or this morning. Patient has made mother aware of his HIV meds and she will be bringing them in for patient. Patient denies any acute concerns or complaints at the moment, discussed lab findings with patient. Physical Exam Vital signs: Vital Signs 09/12/18 06:00 Temperature 97.9 F Pulse Rate 79 Respiratory Rate 18 Blood Pressure 112/84 Pulse Oximetry 97 Intake & Output 09/11/18 09/12/18 09/12/18 19:59 06:59 18:59 Weight Other: Weight On Admission Narrative: GENERAL: Well-developed, well-nourished -[place] male in no acute distress. SKIN: Warm and dry. HEAD: Atraumatic. Normocephalic. EYES: Pupils equal and round. No scleral icterus. No injection or drainage. ENT: No nasal bleeding or discharge. Mucous membranes pink and moist. NECK: Trachea midline. CARDIOVASCULAR: Regular rate and rhythm. RESPIRATORY: No accessory muscle use. Diminished breath sounds throughout with no noted rhonchi or crackles. GASTROINTESTINAL: Abdomen soft, non-tender, nondistended. + Bowel sounds MUSCULOSKELETAL: Extremities without clubbing, cyanosis, or edema. No obvious deformities. NEUROLOGICAL: Awake, alert, oriented x3. No obvious cranial nerve deficits. Motor grossly within normal limits. Normal speech. PSYCHIATRIC: Appears depressed. Results - Labs CBC & Chem 7: 09/10/18 21:15 09/12/18 09:50 Laboratory Results - last 24 hr 09/11/18 09/11/18 09/12/18 17:45 21:00 06:49 Sodium Potassium Chloride Carbon Dioxide Anion Gap BUN Creatinine Estimated GFR POC Glucose 212 H 93 154 H Random Glucose Hemoglobin A1c Calcium Triglycerides Cholesterol LDL Cholesterol, Calc HDL Cholesterol Cholesterol/HDL Ratio 09/12/18 09/12/18 09/12/18 07:41 09:50 09:50 Sodium 144 Potassium 4.1 Chloride 109 H Carbon Dioxide 28.9 Anion Gap 6 BUN 15 Creatinine 1.41 H Estimated GFR 64 L POC Glucose 107 Random Glucose 109 H Hemoglobin A1c 5.6 Calcium 8.8 Triglycerides 138 Cholesterol 128 LDL Cholesterol, Calc 58 HDL Cholesterol 42.8 Cholesterol/HDL Ratio 2.99 09/12/18 11:16 Sodium Potassium Chloride Carbon Dioxide Anion Gap BUN Creatinine Estimated GFR POC Glucose 98 Random Glucose Hemoglobin A1c Calcium Triglycerides Cholesterol LDL Cholesterol, Calc HDL Cholesterol Cholesterol/HDL Ratio Assessment and Plan - Plan Mr. Morrison is a 53-year-old -[place] male with past medical history significant for hyperlipidemia, diabetes mellitus, HIV, hepatitis B, tobacco abuse, alcohol abuse, polysubstance abuse and bipolar disorder who presented to the emergency department on 09/10 on a voluntary basis after being homeless for 5 days prior. Patient had apparently become depressed and began using heroin with thoughts of wanting to kill himself. Patient has now been admitted to inpatient psychiatry unit, [facility] admitted to assist with medical management regarding HIV, hep B, and diabetes mellitus. Bipolar disorder -Treatment plan per psychiatry -Patient has been started on Wellbutrin and Seroquel HIV Hepatitis B -Patient will need to follow-up with GI as outpatient treatment of his hepatitis B. -Liver enzymes at the moment are stable. -Patient will also need to follow-up with his regular physician Dr. Vargas for ongoing HIV medications. -Patient has made arrangements for mother to bring in HIV medications, she can resume these. Diabetes mellitus Hemoglobin A1c on 05/12/18 was 5.5 -Hemoglobin A1c 5.6, discontinue insulin sliding scale with blood sugars have been stable. -Patient was encouraged to make dietary and lifestyle modifications. Acute on chronic renal insufficiency -Since April patient's creatinine has been around 1.3 -Mildly elevated total CK, encourage oral hydration -Polysubstance drug abuse also possibly contributing to renal insufficiency, discussed with patient. -Avoid nephrotoxins, creatinine with slight improvement at 1.41, closer to patient's baseline. Cough/night sweats -Chest x-ray negative, patient afebrile with no leukocytosis. -Cough likely due to smoking and other drug use. -Provide influenza vaccine Microcytosis -B12 and folic acid stable -No anemia at the moment, monitor Polysubstance drug abuse Alcohol abuse -CIWA -Cessation discussed and encouraged. DVT prophylaxisambulation [facility] will sign off, please reconsult if needed. Discussed Condition With: Patient and RN
[2018-09-12] MEDS ORDERED: Influenza (Quadrivalent) Vaccine 0.5 ML Syringe IM ONE (16:00)
[2018-09-13] MEDS: valACYclovir 500 MG Tab PO SCH (08:24)
[2018-09-13] MEDS: buPROPion 75 MG Tablet PO SCH ×2 (08:24→20:55)
[2018-09-13] MEDS: Multivitamin/Minerals Therapeutic Tablet PO SCH (08:24)
[2018-09-13] MEDS: Senna/Docusate Sodium 8.6/50 MG Tablet PO SCH ×2 (08:24→20:55)
[2018-09-13] MEDS ORDERED: Bisacodyl 10 MG Supp RECTAL PRN (12:04)
[2018-09-13] MEDS ORDERED: Aluminum/Magnesium/Simethacone Susp 30 ML UDC PO PRN (12:04)
--- NOTE | 2018-09-13 12:14 | P.PNPSY ---
Subjective Remarks: Patient initially admitted by Dr. Robbins's H&P reviewed and agreed with. Patient has been allowed to sign in on a voluntary basis. I have reviewed and finished the initial admission psychiatric template orders. And reviewed the med reconciliation, continuing his HIV meds. Patient seen by me with nurse [place]. Patient essentially giving the same history that he gave of his admission a few months ago giving still the of his that occurred prior to the last admission he continues also using cocaine and marijuana it appears she was in a placement where arrange for him but he left that for some reason. He now denies suicidality stating he would not take the suicide pill. He now states that he would be willing to look at an [facility] placement. At this time I feel patient does not meet [facility] we will discontinue the Ativan orders. Hopeless be fairly short stay we can arrange an appropriate placement for this man Review of Systems All other systems reviewed negative except as stated in HPI Mental Status Examination Appearance: Appropriate Consciousness: Alert Orientation: x4 Motor Activity: Normal gait Speech: Unremarkable Language: Adequate Fund of Knowledge: Adequate Attention and Concentration: Adequate Memory: Unremarkable Mood: Angry (Somewhat calmer), Oppositional Affect: Irritable, Other (Decreased range and intensity) Thought Process & Associations: Intact Thought Content: Appropriate Hallucination Type: Auditory Delusion Type: None Suicidal Ideation: No Suicidal Plan: No Suicidal Intention: No Homicidal Ideation: No Homicidal Plan: No Homicidal Intention: No Insight: Poor Judgment: Poor Assessment and Plan - Assessment (1) Bipolar depression Code(s): F31.30 - Bipolar disorder, current episode depressed, mild or moderate severity, unspecified Status: Acute - Plan Plan: Patient remained somewhat depressed with psychotic features the now denies suicidality. Hope this will be fairly short stay he appears willing to consider an [facility] placement. Though we need to verify that Justification for Continued Inpatient Stay: At this time patient would decompensate a place to a lower level of care Discharge Planning: To be determined Request Healthcare Surrogate/Guardian Advocate?: No
[2018-09-14] MEDS: ENTECAVIR 1 MG PO SCH (08:49)
[2018-09-14] MEDS: buPROPion 75 MG Tablet PO SCH ×2 (08:49→20:34)
[2018-09-14] MEDS: Multivitamin/Minerals Therapeutic Tablet PO SCH (08:49)
[2018-09-14] MEDS: Senna/Docusate Sodium 8.6/50 MG Tablet PO SCH ×2 (08:49→20:33)
[2018-09-14] MEDS: valACYclovir 500 MG Tab PO SCH (08:49)
[2018-09-14] MEDS: ODEFSEY PO SCH (08:50)
--- NOTE | 2018-09-14 10:18 | P.PNPSY ---
Subjective Remarks: Patient seen and littlejohn with nurse Alisha, chart reviewed, patient compliant medication. Patient is going 0 Siwa protocol we will discontinue to her protocol and all Ativan orders. Will order Atarax 25 mg for anxiety. Patient at this time appears quite calm cooperative denies suicidality homicidality voice or visions. He will have counselor Jose speak with him today about sober living facility opportunities Review of Systems All other systems reviewed negative except as stated in HPI Mental Status Examination Appearance: Appropriate Consciousness: Alert Orientation: x4 Motor Activity: Normal gait Speech: Unremarkable Language: Adequate Fund of Knowledge: Adequate Attention and Concentration: Adequate Memory: Unremarkable Mood: Sad (Somewhat manipulative) Affect: Other (Decreased range and intensity) Thought Process & Associations: Intact Thought Content: Appropriate Hallucination Type: Auditory Delusion Type: None Suicidal Ideation: No Suicidal Plan: No Suicidal Intention: No Homicidal Ideation: No Homicidal Plan: No Homicidal Intention: No Insight: Poor Judgment: Poor Assessment and Plan - Assessment (1) Bipolar depression Code(s): F31.30 - Bipolar disorder, current episode depressed, mild or moderate severity, unspecified Status: Acute - Plan Plan: Patient now denies suicidality voices or visions. We will discontinue the Siwa protocol. Add small dose of Atarax. Have counselor work with patient looking for sober living opportunities Justification for Continued Inpatient Stay: At this time patient would decompensate a place to a lower level of care Discharge Planning: To be determined looking at sober living facilities Request Healthcare Surrogate/Guardian Advocate?: No
[2018-09-14 12:29] LABS: Carbon Dioxide 28.7 meq/L (21.0-32.0); Potassium 4.3 meq/L (3.5-5.1)
[2018-09-14 12:36] LABS: Chol/HDL Ratio 3.54 Ratio; HDL Cholesterol 42.6 mg/dL (40.0-60.0)
[2018-09-14 16:22] LABS: Hemoglobin A1c 5.5 % (4.3-6.0)
[2018-09-15] MEDS: ENTECAVIR 1 MG PO SCH (08:42)
[2018-09-15] MEDS: Multivitamin/Minerals Therapeutic Tablet PO SCH (08:44)
[2018-09-15] MEDS: valACYclovir 500 MG Tab PO SCH (08:44)
[2018-09-15] MEDS: buPROPion 75 MG Tablet PO SCH ×2 (08:45→20:11)
[2018-09-15] MEDS: Senna/Docusate Sodium 8.6/50 MG Tablet PO SCH ×2 (08:47→20:12)
[2018-09-15] MEDS: ODEFSEY PO SCH (08:47)
--- NOTE | 2018-09-15 13:57 | P.PNPSY ---
Subjective Remarks: Patient is seen in his room with nurse Jill, patient continues depressed with vague suicidal ideation, continues to isolate, his affect remains with a decreased range and intensity. We will increase Wellbutrin to 100 mg twice daily Review of Systems All other systems reviewed negative except as stated in HPI Mental Status Examination Appearance: Appropriate Consciousness: Alert Orientation: x4 Motor Activity: Normal gait Speech: Unremarkable Language: Adequate Fund of Knowledge: Adequate Attention and Concentration: Adequate Memory: Unremarkable Mood: Sad (Somewhat increased today) Affect: Other (Decreased range and intensity) Thought Process & Associations: Intact Thought Content: Appropriate Hallucination Type: Auditory Delusion Type: None Suicidal Ideation: Yes (Somewhat vague today) Suicidal Plan: No Suicidal Intention: No Homicidal Ideation: No Homicidal Plan: No Homicidal Intention: No Insight: Poor Judgment: Poor Assessment and Plan - Assessment (1) Bipolar depression Code(s): F31.30 - Bipolar disorder, current episode depressed, mild or moderate severity, unspecified Status: Acute - Plan Plan: Patient continues somewhat depressed today with vague suicidal ideation C medication adjustment above Justification for Continued Inpatient Stay: At this time patient would decompensate a place to a lower level of care Discharge Planning: To be determined Request Healthcare Surrogate/Guardian Advocate?: No
--- NOTE | 2018-09-16 07:44 | P.TTN ---
- Patient Problems Problems: 1. Discharge planning 2. Medication compliance 3. Knowledge deficit 4. Lack of coping skills - Progress Toward Goals Provider Present: Dr. Ion Lopez (Patient is depressed, Dr. Lopez will meet with the patient to further assess the need for continued stabilization.) Psychiatric Counselors Present: Jose Contreras Jr., [facility] (Counselor is working with the [facility] for placement. The [facility] reported yesterday they will accept patient; however, a bed will not be available until Thursday, September 20, 2018.) Group Spec/RT/OT/PEPPER Present: CHELSIE Shipman (Patient attends select groups.) - Documentation Teaching Recipient: Patient
[2018-09-16] MEDS: ODEFSEY PO SCH (08:19)
[2018-09-16] MEDS: Senna/Docusate Sodium 8.6/50 MG Tablet PO SCH ×2 (08:19→20:04)
[2018-09-16] MEDS: buPROPion 75 MG Tablet PO SCH ×3 (08:20→20:05)
[2018-09-16] MEDS: ENTECAVIR 1 MG PO SCH (08:23)
[2018-09-16] MEDS: Multivitamin/Minerals Therapeutic Tablet PO SCH (08:54)
[2018-09-16] MEDS: valACYclovir 500 MG Tab PO SCH (08:54)
--- NOTE | 2018-09-16 11:01 | P.PNPSY ---
Subjective Remarks: Patient seen and littlejohn with floor staff, chart reviewed, patient compliant medication. Patient remains depressed sad with vague suicidal ideation. Though he denies voices today. There remains a hopelessness with him even though he is aware of the possibility for an appropriate placement Thursday. For now continue treatment Review of Systems All other systems reviewed negative except as stated in HPI Mental Status Examination Appearance: Appropriate Consciousness: Alert Orientation: x4 Motor Activity: Normal gait Speech: Unremarkable Language: Adequate Fund of Knowledge: Adequate Attention and Concentration: Adequate Memory: Unremarkable Mood: Sad (Somewhat increased today) Affect: Other (Decreased range and intensity) Thought Process & Associations: Intact Thought Content: Appropriate Hallucination Type: Auditory (Denies today) Delusion Type: None Suicidal Ideation: Yes (Somewhat vague today) Suicidal Plan: No Suicidal Intention: No Homicidal Ideation: No Homicidal Plan: No Homicidal Intention: No Insight: Poor Judgment: Poor Assessment and Plan - Assessment (1) Bipolar depression Code(s): F31.30 - Bipolar disorder, current episode depressed, mild or moderate severity, unspecified Status: Acute - Plan Plan: Patient remains depressed sad decreased range and intensity. He is vague about suicidality, though he denies voices at this time. For now continue treatment he is compliant with his medication Justification for Continued Inpatient Stay: At this time patient would decompensate a place to a lower level of care Discharge Planning: To be determined possible placement sober living facility in [place] Thursday Request Healthcare Surrogate/Guardian Advocate?: No
[2018-09-17] MEDS: Senna/Docusate Sodium 8.6/50 MG Tablet PO SCH ×2 (07:59→20:16)
[2018-09-17] MEDS: buPROPion 75 MG Tablet PO SCH ×2 (08:00→20:16)
[2018-09-17] MEDS: valACYclovir 500 MG Tab PO SCH (08:00)
[2018-09-17] MEDS: Multivitamin/Minerals Therapeutic Tablet PO SCH (08:00)
[2018-09-17] MEDS: ODEFSEY PO SCH (08:01)
[2018-09-17] MEDS: ENTECAVIR 1 MG PO SCH (08:01)
--- NOTE | 2018-09-17 11:03 | P.DSPSY ---
Psychiatry Discharge Summary Inpatient Psychiatric care?: Yes Advance Directives: No Reason for Unknown:: Other Mental Health Advance Directive: No Health Care Proxy: No - Admission Admission Date: September 11, 2018 08:57 - Admission Diagnosis (1) Marijuana abuse Code(s): F12.10 - Cannabis abuse, uncomplicated (2) Adjustment disorder with mixed disturbance of emotions and conduct Code(s): F43.25 - Adjustment disorder with mixed disturbance of emotions and conduct (3) Cocaine abuse Code(s): F14.10 - Cocaine abuse, uncomplicated Brief History: The patient is a 53-year-old -[place] man, homeless, unemployed, single , supported by [facility], with a psychiatric history of bipolar disorder, depression, antisocial personality disorder polysubstance dependence including crack cocaine , heroine, alcohol and marijuana, multiple psychiatric admissions, 3 previous suicide attempts, he was admitted here in [place] at the beginning of 2017, no compliant medications, a significant medical history of HIV, hepatitis B, diabetes, who came to the hospital voluntarily requesting a psychiatric evaluation stating that he has been homeless for the past 5 days, he is depressed and he wants to commit suicide. Has been smoking crack for years. Yesterday decided he wants to kill himself and began using heroin. States he is too stressed out and does not want to live. Has not been taking his medications he has been very depressed since his in May 2018. He also reports that he has been having increased auditory hallucinations of voices telling him to kill himself and kill people. He says that he definitely does not want to go to alf, that he wants to comply with his psychiatric medications and medical medications, but is very difficult for him to function using so many drugs and be so depressed. During the evaluation the patient is irritable, at times verbally hostile, but usually redirectable. Was able to contract for safety in the ER. PPHx: Bipolar disorder, depression, multiple psychiatric hospitalizations, 3 previous suicide attempts, he is noted psychotropics, was admitted in [place] at the beginning of 2017 PMHx: HIV, hepatitis C, diabetes Sustance Hx: Patient reports daily use of crack cocaine, cannabis, occasional use of alcohol, Clarissa and heroine Family Hx: Patient has an aunt with bipolar Social Hx: He was born and raised in [place], he is homeless, , unemployed, supported by [facility] Tobacco Use In Past 30 Days: Yes How Often Do You Have a Drink Containing Alcohol: 4 or more times a week Hospital Course: Patient's depression with suicidality vague psychotic features hopelessness and helplessness persisted for the first period of his hospitalization. He was cooperative with medication. He gradually's showed improvement in his cooperation and his willingness to look at sober living facilities. He came to realize that this was perhaps his last opportunity to get a fresh start placement in a facility where he can maintain sobriety and get treatment for his mental health issues. He continued compliant medication. Patient has worked diligently with Counselor Jose. There is no bed available on Thursday in [place] at a sober living facility. Patient to be discharged on Thursday to be transported to that facility for further care and attention along with rehabilitation. This is a sober living facility. He will be given a one-month supply of his scheduled medications. He will take his own HIV medications with him. - Discharge Discharge Date: 09/20/18 - Discharge Diagnosis (1) Adjustment disorder with mixed disturbance of emotions and conduct Diagnosis: Principal Code(s): F43.25 - Adjustment disorder with mixed disturbance of emotions and conduct Status: Acute (2) Cocaine abuse Diagnosis: Secondary Code(s): F14.10 - Cocaine abuse, uncomplicated Status: Acute (3) Marijuana abuse Diagnosis: Secondary Code(s): F12.10 - Cannabis abuse, uncomplicated Status: Acute Discharge Disposition: Discharge to sober living facility in [place] - Discharge Instructions Discharge Diet: Diabetic Diet Activities You Can Perform: Regular- No Restrictions - Discharge Time > 30 minutes Mental Status Examination Appearance: Appropriate Consciousness: Alert Orientation: x4 Motor Activity: Normal gait Speech: Unremarkable Language: Adequate Fund of Knowledge: Adequate Attention and Concentration: Adequate Memory: Unremarkable Mood: Sad (Somewhat increased today) Affect: Other (Decreased range and intensity) Thought Process & Associations: Intact Thought Content: Appropriate Hallucination Type: Auditory (Denies today) Delusion Type: None Suicidal Ideation: Yes (Somewhat vague today) Suicidal Plan: No Suicidal Intention: No Homicidal Ideation: No Homicidal Plan: No Homicidal Intention: No Insight: Poor Judgment: Poor Discharge/Advance Care Plan - Results Vital Signs: Last Vital Signs Temp 97.0 F L 09/17/18 05:59 Pulse 73 09/17/18 05:59 Resp 18 09/17/18 05:59 BP 132/83 09/17/18 05:59 Pulse Ox 100 09/16/18 16:42 Lab Results: Laboratory Results Hemoglobin A1c 5.5 % (4.3-6.0) 09/14/18 11:15 Triglycerides 174 mg/dL (42-150) H 09/14/18 11:15 Cholesterol 151 mg/dL (120-200) 09/14/18 11:15 LDL Cholesterol, Calc 74 mg/dL (0-99) 09/14/18 11:15 HDL Cholesterol 42.6 mg/dL (40.0-60.0) 09/14/18 11:15 TSH 1.820 uIU/mL (0.358-3.740) 09/10/18 21:15 Summary of Procedures: None done Imaging: ITS Impressions Chest X-Ray 09/11/18 00:00 CONCLUSION: No acute cardiopulmonary disease identified. Pending Results: None - Medications Number of antipsychotic medications at discharge: 0 - Discharge Care Plan Goals to Promote Your Health: * To prevent worsening of your condition and complications * To maintain your health at the optimal level Directions to Meet Your Goals: Take your medications as prescribed Follow your dietary instruction Follow activity as directed Keep your appointments as scheduled Take your immunizations and boosters as scheduled If your symptoms worsen call your PCP, if no PCP go to Urgent Care Center or Emergency Room For 01/06 questions related to your inpatient stay or results of tests pending at discharge, please contact Dr. Garland Lopez MD at Smoking is Dangerous to Your Health. Avoid second hand smoking
[2018-09-18] MEDS: ENTECAVIR 1 MG PO SCH (08:28)
[2018-09-18] MEDS: Multivitamin/Minerals Therapeutic Tablet PO SCH (08:29)
[2018-09-18] MEDS: Senna/Docusate Sodium 8.6/50 MG Tablet PO SCH ×2 (08:29→20:10)
[2018-09-18] MEDS: buPROPion 75 MG Tablet PO SCH ×2 (08:29→20:10)
[2018-09-18] MEDS: ODEFSEY PO SCH (08:29)
[2018-09-18] MEDS: valACYclovir 500 MG Tab PO SCH (08:29)
--- NOTE | 2018-09-18 12:54 | P.PNPSY ---
Subjective Remarks: Patient was seen and case discussed with nursing. Patient continues to improve. He is goal oriented and looking forward to his new life and rehab. Behaving well on the unit. Interacting with others. Denies suicidal or homicidal ideation intent or plan. Mental Status Examination Appearance: Appropriate Consciousness: Alert Orientation: x4 Motor Activity: Normal gait Speech: Unremarkable Language: Adequate Fund of Knowledge: Adequate Attention and Concentration: Adequate Memory: Unremarkable Mood: Sad (Somewhat increased today) Affect: Other (Decreased range and intensity) Thought Process & Associations: Intact Thought Content: Appropriate Hallucination Type: None Delusion Type: None Suicidal Ideation: No Suicidal Plan: No Suicidal Intention: No Homicidal Ideation: No Homicidal Plan: No Homicidal Intention: No Insight: Poor Judgment: Poor Assessment and Plan - Plan Plan: Continue current treatment plan Justification for Continued Inpatient Stay: Patient would decompensate in a less restrictive setting Request Healthcare Surrogate/Guardian Advocate?: No
[2018-09-19] MEDS: Multivitamin/Minerals Therapeutic Tablet PO SCH (08:24)
[2018-09-19] MEDS: valACYclovir 500 MG Tab PO SCH (08:25)
[2018-09-19] MEDS: Senna/Docusate Sodium 8.6/50 MG Tablet PO SCH ×2 (08:25→20:16)
[2018-09-19] MEDS: buPROPion 75 MG Tablet PO SCH ×2 (08:26→20:16)
[2018-09-19] MEDS: ENTECAVIR 1 MG PO SCH (08:27)
[2018-09-19] MEDS: ODEFSEY PO SCH (08:27)
--- NOTE | 2018-09-19 10:39 | P.PNPSY ---
Subjective Remarks: Medical record reviewed and discussed with nursing staff. Patient is in the common area playing a video game. Rounded with ELY Parekh. Patient states that he is going to [facility] in [place] tomorrow to start a drug treatment program. His mood is euthymic and he is improved compared to last weekend. Cooperative and pleasant. Focused on discharge. Review of Systems All other systems reviewed negative except as stated in HPI Mental Status Examination Appearance: Appropriate Consciousness: Alert Orientation: x4 Motor Activity: Normal gait Speech: Unremarkable Language: Adequate Fund of Knowledge: Adequate Attention and Concentration: Adequate Memory: Unremarkable Mood: Sad (Somewhat increased today) Affect: Other (Decreased range and intensity) Thought Process & Associations: Intact Thought Content: Appropriate Hallucination Type: None Delusion Type: None Suicidal Ideation: No Suicidal Plan: No Suicidal Intention: No Homicidal Ideation: No Homicidal Plan: No Homicidal Intention: No Insight: Fair Judgment: Impulsive Assessment and Plan - Assessment (1) Depression Code(s): F32.9 - Major depressive disorder, single episode, unspecified Status : Acute - Plan Plan: Continue current treatment plan Justification for Continued Inpatient Stay: Moving patient to a less restrictive environment may result in his decompensation. Request Healthcare Surrogate/Guardian Advocate?: No
[2018-09-19 15:58] VITALS: RESP 18
[2018-09-20 06:12] VITALS: BP 136/91; PULSE 90; TEMP 98.4; O2SAT 95
[2018-09-20] MEDS: ENTECAVIR 1 MG PO SCH (07:03)
[2018-09-20] MEDS: ODEFSEY PO SCH (08:02)
[2018-09-20] MEDS: buPROPion 75 MG Tablet PO SCH (08:03)
[2018-09-20] MEDS: valACYclovir 500 MG Tab PO SCH (08:03)
[2018-09-20] MEDS: Multivitamin/Minerals Therapeutic Tablet PO SCH (08:03)
[2018-09-20] MEDS: Senna/Docusate Sodium 8.6/50 MG Tablet PO SCH (08:03)
== END 2018-09-20 08:05 | disposition short-term general hospital (02) ==
LOC: NEPJ 19:27 → NEDA 09-11 08:57 → H270 09-11 10:01
PROVIDERS: ADMIT Psychiatry & Neurology Psychiatry; ATTEND Psychiatry & Neurology Psychiatry